=== PATIENT | female | born 1980 | race Caucasian/White ===

== ENCOUNTER 2019-02-12 14:05 | Observation (INO) | payer BC ==
[2019-02-12] MEDS ORDERED: SODIUM CHLORIDE 0.9% 1,000 ML IV STA (14:59)
[2019-02-12] MEDS ORDERED: HEPARIN SODIUM,PORCINE 5,000 UNIT/ML 1 ML VIAL IV ONE (15:00)
[2019-02-12] MEDS ORDERED: HEPARIN SODIUM,PORCINE 5,000 UNIT/ML 1 ML VIAL IV PRN (15:00)
[2019-02-12] MEDS ORDERED: HEPARIN SOD,PORK IN 0.45% NACL 25,000 UNIT in 0.45% NACL 1 250ML.BAG IV SCH (15:00)
[2019-02-12 15:27] LABS: Basophils % (A) 1 %; Eosinophils # (A) 0.2 k/uL (0-0.7); Eosinophils % (A) 2 %; HCT 41.7 % (34.0-46.0); HGB 13.5 gm/dL (11.4-16.0); Lymphocytes # (A) 2.4 k/uL (1.0-4.8); Lymphocytes % (A) 32 %; MCH 29.2 pg (25.0-35.0); MCHC 32.4 g/dL (31.0-37.0); MCV 90.2 fL (80.0-100.0); Mean Platelet Volume 6.3; Monocytes # (A) 0.2 k/uL (0-1.0); Monocytes % (A) 3 %; Neutrophils # (A) 4.6 k/uL (1.3-7.7); Neutrophils % (A) 61 %; Platelet Count 270 k/uL (150-450); RBC 4.62 m/uL (3.80-5.40); RDW 13.1 % (11.5-15.5); WBC 7.5 k/uL (3.8-10.6)
[2019-02-12 15:36] LABS: ALT 26 U/L (9-52); AST 33 U/L (14-36); African American GFR (CKD) >90 (>60 ml/min/1.73 sqM); Albumin 4.1 g/dL (3.5-5.0); Alkaline Phosphatase 85 U/L (38-126); Anion Gap 9 mmol/L; Blood Urea Nitrogen 9 mg/dL (7-17); Calcium 9.4 mg/dL (8.4-10.2); Carbon Dioxide 26 mmol/L (22-30); Chloride 105 mmol/L (98-107); Glucose 94 mg/dL (74-99); Magnesium 2.1 mg/dL (1.6-2.3); Non-African American GFR(CKD) >90 (>60 ml/min/1.73 sqM); Potassium 4.1 mmol/L (3.5-5.1); Sodium 140 mmol/L (137-145); Total Bilirubin 0.6 mg/dL (0.2-1.3); Total Protein 7.2 g/dL (6.3-8.2)
[2019-02-12 15:52] LABS: INR 0.9 (<1.2); Partial Thromboplastin Time 22.4 sec (22.0-30.0); Prothrombin Time 9.5 sec (9.0-12.0)
--- NOTE | 2019-02-12 15:58 | ED ---
General Adult HPI - General Source: patient, EMS, RN notes reviewed, old records reviewed Mode of arrival: EMS Limitations: no limitations <Tiffanie Chance - Last Filed: 02/12/19 15:47> <Omkar Ojeda - Last Filed: 02/12/19 16:05> - General Chief complaint: Recheck/Abnormal Lab/Rx Stated complaint: Chest pain Time Seen by Provider: 02/12/19 14:21 - History of Present Illness Initial comments: Patient is a 38-year-old female with history of CABG, hypertension.. She presents emergency room today for a transfer from [facility]. Patient was evaluated there for left-sided chest pain, pleurisy. Patient had a full evaluation including blood work, EKGs. Laboratory studies were reassuring and her initial troponin was negative. They did repeat patient's troponin 2 hours later and it was noted to be elevated at 0.032. She has reportedly had a history of PEs and DVTs. And has been noncompliant with her L Pauline. They did check a d-dimer on the Patient. This was elevated and a computed tomography s can of the chest was used done to rule out PE. There was no evidence of PE or pneumonia per the radiologist on patient's CAT scan. With the elevated troponin and her 2 hour draw Patient was transferred to our hospital. Patient reports her outsoles channel opener is Dr. Montague. Patient states that she continues to have some pain upon arriving here. She was not initiated on heparin at [facility]. (Tiffanie Chance) - Related Data Home Medications Medication Instructions Recorded Confirmed Apixaban [Eliquis] 5 mg PO BID 02/19/18 02/12/19 Metoprolol Tartrate 25 mg PO BID 06/10/18 02/12/19 Ranitidine HCl [Zantac] 150 mg PO HS 02/12/19 02/12/19 Rosuvastatin Calcium [Crestor] 5 mg PO DAILY 02/12/19 02/12/19 Allergies Allergy/AdvReac Type Severity Reaction Status Date / Time adhesive Allergy Rash/Hives Verified 02/12/19 14:56 albuterol Allergy Anaphylaxis Verified 02/12/19 14:56 amoxicillin Allergy Anaphylaxis Verified 02/12/19 14:56 ampicillin Allergy Anaphylaxis Verified 02/12/19 14:56 azithromycin [From Zithromax] Allergy Anaphylaxis Verified 02/12/19 14:56 erythromycin base Allergy Anaphylaxis Verified 02/12/19 14:56 latex Allergy Rash/Hives Verified 02/12/19 14:56 penicillin V Allergy Anaphylaxis Verified 02/12/19 14:56 Review of Systems ROS Other: All systems not noted in ROS Statement are negative. <Tiffanie Chance - Last Filed: 02/12/19 15:47> ROS Other: All systems not noted in ROS Statement are negative. <Omkar Ojeda - Last Filed: 02/12/19 16:05> ROS Statement: Those systems with pertinent positive or pertinent negative responses have been documented in the HPI. Past Medical History Past Medical History: Coronary Artery Disease (CAD), Chest Pain / Angina, Deep Vein Thrombosis (DVT), Hyperlipidemia, Myocardial Infarction (MS), Pulmonary Embolus (PE) Last Myocardial Infarction Date:: 04/2017 History of Any Multi-Drug Resistant Organisms: MRSA Date of last positivie culture/infection: 2014 MDRO Source:: abscess abdomen Past Surgical History: Section, Cholecystectomy, Coronary Bypass/CABG, Heart Catheterization Additional Past Surgical History / Comment(s): right wrist surgery, carpal tunnel, MRSA S/P wound. left knee surgery Past Anesthesia/Blood Transfusion Reactions: No Reported Reaction Past Psychological History: No Psychological Hx Reported Smoking Status: Current every day smoker Past Alcohol Use History: None Reported Past Drug Use History: None Reported - Past Family History Mother Family Medical History: Cancer, CVA/TIA, Diabetes Mellitus, Myocardial Infarction (MS), Renal Disease Additional Family Medical History / Comment(s): uterine cancer, artificial valves Father Additional Family Medical History / Comment(s): PAD Brother(s) Family Medical History: Coronary Artery Disease (CAD), Diabetes Mellitus Additional Family Medical History / Comment(s): 2 HEART STENTS, issue with heart valve Sister(s) Additional Family Medical History / Comment(s): psych issues Daughter(s) Family Medical History: No Reported History Son(s) Family Medical History: No Reported History <Tiffanie Chance - Last Filed: 02/12/19 15:47> General Exam Limitations: no limitations Head exam: Present: atraumatic, normocephalic, normal inspection Eye exam: Present: normal appearance, PERRL, EOMI. Absent: scleral icterus, con junctival injection, periorbital swelling ENT exam: Present: normal exam, mucous membranes moist Neck exam: Present: normal inspection. Absent: tenderness, meningismus, lymphadenopathy Respiratory exam: Present: normal lung sounds bilaterally. Absent: respiratory distress, wheezes, rales, rhonchi, stridor Cardiovascular Exam: Present: regular rate, normal rhythm, normal heart sounds. Absent: systolic murmur, diastolic murmur, rubs, gallop, clicks GI/Abdominal exam: Present: soft, normal bowel sounds. Absent: distended, tenderness, guarding, rebound, rigid Extremities exam: Present: normal inspection, full ROM, normal capillary refill, other (Patient has evidence of Abbey intertrigo within her right axilla.). Absent: tenderness, pedal edema, joint swelling, calf tenderness Back exam: Present: normal inspection Neurological exam: Present: alert, oriented X3, CN II-XII intact Psychiatric exam: Present: normal affect, normal mood Skin exam: Present: warm, dry, intact, normal color. Absent: rash <Tiffanie Chance - Last Filed: 02/12/19 15:47> - General Exam Comments Initial Comments: Alert and oriented 38-year-old female. Patient is currently obese. Patient appears in no significant distress. (Tiffanie Chance) Course Vital Signs 02/12/19 02/12/19 14:08 16:00 Temperature 97.6 F Pulse Rate 78 91 Respiratory 20 18 Rate Blood Pressure 114/80 111/72 O2 Sat by Pulse 100 98 Oximetry Medical Decision Making - Lab Data Result diagrams: 02/12/19 15:16 02/12/19 15:16 - Radiology Data Radiology results: report reviewed <Tiffanie Chance - Last Filed: 02/12/19 15:47> - Lab Data Result diagrams: 02/12/19 15:16 02/12/19 15:16 <Omkar Ojeda - Last Filed: 02/12/19 16:05> - Medical Decision Making Patient 38-year-old female, sent here for transfer for [facility] for concern for elevated second troponin. Patient went to the ER for some left- sided pleuritic description of chest pain. She had a CT which was negative for PE. She has been noncompliant with her Eliquis. When she arrived here Patient was initiated on heparin, she was given aspirin and morphine earlier today. Patient's EKG shows no significant acute changes. Her outsoles channel opener is Dr. Montague. I discussed the Patient will have repeat troponins and admitted for cardiac observation. (Tiffanie Chance) The patient is seen and examined. All diagnostics are reviewed. The case is discussed with the PA and I agree with findings as documented. Case also was discussed with Dr. Wise and he is agreeable with admission. (Omkar Ojeda) - Lab Data Lab Results 02/12/19 02/12/19 02/12/19 Range/Units 15:16 15:16 15:16 WBC 7.5 (3.8-10.6) k/uL RBC 4.62 (3.80-5.40) m/uL Hgb 13.5 (11.4-16.0) gm/dL Hct 41.7 (34.0-46.0) % MCV 90.2 (80.0-100.0) fL MCH 29.2 (25.0-35.0) pg MCHC 32.4 (31.0-37.0) g/dL RDW 13.1 (11.5-15.5) % Plt Count 270 (150-450) k/uL Neutrophils % 61 % Lymphocytes % 32 % Monocytes % 3 % Eosinophils % 2 % Basophils % 1 % Neutrophils # 4.6 (1.3-7.7) k/uL Lymphocytes # 2.4 (1.0-4.8) k/uL Monocytes # 0.2 (0-1.0) k/uL Eosinophils # 0.2 (0-0.7) k/uL Basophils # 0.0 (0-0.2) k/uL PT 9.5 (9.0-12.0) sec INR 0.9 (<1.2) APTT 22.4 (22.0-30.0) sec Sodium 140 (137-145) mmol/L Potassium 4.1 (3.5-5.1) mmol/L Chloride 105 (98-107) mmol/L Carbon Dioxide 26 (22-30) mmol/L Anion Gap 9 mmol/L BUN 9 (7-17) mg/dL Creatinine 0.62 (0.52-1.04) mg/dL Est GFR (CKD-EPI)AfAm >90 (>60 ml/min/1.73 sqM) Est GFR (CKD-EPI)NonAf >90 (>60 ml/min/1.73 sqM) Glucose 94 (74-99) mg/dL Calcium 9.4 (8.4-10.2) mg/dL Magnesium 2.1 (1.6-2.3) mg/dL Total Bilirubin 0.6 (0.2-1.3) mg/dL AST 33 (14-36) U/L ALT 26 (9-52) U/L Alkaline Phosphatase 85 (38-126) U/L Troponin I (0.000-0.034) ng/mL Total Protein 7.2 (6.3-8.2) g/dL Albumin 4.1 (3.5-5.0) g/dL 02/12/19 Range/Units 15:16 WBC (3.8-10.6) k/uL RBC (3.80-5.40) m/uL Hgb (11.4-16.0) gm/dL Hct (34.0-46.0) % MCV (80.0-100.0) fL MCH (25.0-35.0) pg MCHC (31.0-37.0) g/dL RDW (11.5-15.5) % Plt Count (150-450) k/uL Neutrophils % % Lymphocytes % % Monocytes % % Eosinophils % % Basophils % % Neutrophils # (1.3-7.7) k/uL Lymphocytes # (1.0-4.8) k/uL Monocytes # (0-1.0) k/uL Eosinophils # (0-0.7) k/uL Basophils # (0-0.2) k/uL PT (9.0-12.0) sec INR (<1.2) APTT (22.0-30.0) sec Sodium (137-145) mmol/L Potassium (3.5-5.1) mmol/L Chloride (98-107) mmol/L Carbon Dioxide (22-30) mmol/L Anion Gap mmol/L BUN (7-17) mg/dL Creatinine (0.52-1.04) mg/dL Est GFR (CKD-EPI)AfAm (>60 ml/min/1.73 sqM) Est GFR (CKD-EPI)NonAf (>60 ml/min/1.73 sqM) Glucose (74-99) mg/dL Calcium (8.4-10.2) mg/dL Magnesium (1.6-2.3) mg/dL Total Bilirubin (0.2-1.3) mg/dL AST (14-36) U/L ALT (9-52) U/L Alkaline Phosphatase (38-126) U/L Troponin I 0.013 (0.000-0.034) ng/mL Total Protein (6.3-8.2) g/dL Albumin (3.5-5.0) g/dL 02/12/19 15:56 EKG performed here 15 days 47 shows normal sinus rhythm low voltage QRS. Cannot rule out anterior infarct age undetermined. Abnormal EKG. Ventricular rate of 84 bpm.. Intervals 152 ms. QRS duration is 82 ms. QT QTc is 370/446 ms. (Tiffanie Chance) - Radiology Data Chest x-ray shows prior median sternotomy. Heart size is upper limits of normal. Limited exam enlarged Patient by habitus. Correlate for mild pulmonary vascular congestion. CT is negative for pulmonary embolism at this time. (Tiffanie Chance) Disposition Is patient prescribed a controlled substance at d/c from ED?: No Time of Disposition: 16:01 <Tiffanie Chance - Last Filed: 02/12/19 15:47> <Omkar Ojeda - Last Filed: 02/12/19 16:05> Clinical Impression: Elevated troponin, Chest pain Disposition: ADMITTED IP TO THIS HOSP Condition: Stable Additional Instructions: Please use medication as discussed. Please follow up with family doctor if symptoms have not improved over the next two days. Please return to the emergency room if your symptoms increase or worsen or for any other concerns. Referrals: Marya Foreman MD [Primary Care Provider] - 1-2 days
[2019-02-12 16:02] VITALS: RESP 18
[2019-02-12] MEDS ORDERED: NITROGLYCERIN SL TABS 0.4 MG TAB SUBLINGUAL PRN (16:02)
--- NOTE | 2019-02-12 16:02 | XR ---
EXAMINATION TYPE: XR chest 2V DATE OF EXAM: 02/12/2019 COMPARISON: Prior chest x-ray 12/25/2018, CTA chest 02/12/2019 HISTORY: Chest pain TECHNIQUE: Frontal and lateral views of the chest are obtained. FINDINGS: Patient is post median sternotomy. Technique is somewhat apical lordotic. There is no focal air space opacity, pleural effusion, or pneumothorax seen. The cardiac silhouette size is stable. There are overlying cardiac leads. Prominent lung volumes are present, there is increased AP diamete r chest. Patient is post cholecystectomy. The osseous structures are intact. IMPRESSION: No acute cardiopulmonary process.
[2019-02-12 16:39] VITALS: BP 125/71; PULSE 89; TEMP 98.1
[2019-02-13] MEDS ORDERED: ASPIRIN 325 MG TAB PO SCH (09:00)
--- NOTE | 2019-02-17 20:07 | HP ---
HISTORY AND PHYSICAL COMBINATION HISTORY AND PHYSICAL AND DISCHARGE SUMMARY: CHIEF COMPLAINT: Chest pain. HISTORY OF PRESENT ILLNESS: This 38-year-old woman was admitted with chest pain; however, the patient left the hospital AGAINST MEDICAL ADVICE from the ER itself. Please refer to the ER notes and staff notes for further details. FINAL DIAGNOSIS: Chest pain; rule out myocardial infarction. The prognosis remained guarded throughout the hospital stay. MMODL / IJN: [id number] /
== END 2019-02-12 16:28 | disposition left against medical advice (07) ==
LOC: EC 14:05 → MERGE 16:05 → 1SOBS 16:05
PROVIDERS: ADMIT Hospitalist; ATTEND Hospitalist
DX: R07.81 Pleurodynia (principal); R79.89 Other specified abnormal findings of blood chemistry; R94.31 Abnormal electrocardiogram [ECG] [EKG]; I10 Essential (primary) hypertension; I25.10 Atherosclerotic heart disease of native coronary artery without angina pectoris; E78.5 Hyperlipidemia, unspecified; Z95.1 Presence of aortocoronary bypass graft; I25.2 Old myocardial infarction; E66.9 Obesity, unspecified; Z68.42 Body mass index [BMI] 45.0-49.9, adult; F17.200 Nicotine dependence, unspecified, uncomplicated; Z53.21 Procedure and treatment not carried out due to patient leaving prior to being seen by health care provider; Z86.711 Personal history of pulmonary embolism; Z86.718 Personal history of other venous thrombosis and embolism; Z91.19 Patient's noncompliance with other medical treatment and regimen; Z86.14 Personal history of Methicillin resistant Staphylococcus aureus infection; Z79.01 Long term (current) use of anticoagulants; Z79.899 Other long term (current) drug therapy; Z91.040 Latex allergy status; Z91.048 Other nonmedicinal substance allergy status; Z88.8 Allergy status to other drugs, medicaments and biological substances; Z88.0 Allergy status to penicillin; Z88.1 Allergy status to other antibiotic agents; Z90.49 Acquired absence of other specified parts of digestive tract; Z98.890 Other specified postprocedural states; Z83.3 Family history of diabetes mellitus; Z82.49 Family history of ischemic heart disease and other diseases of the circulatory system; Z80.49 Family history of malignant neoplasm of other genital organs
CPT/HCPCS: 96376; 96365; 99285; 36415; 93005; 80053; 83735; 84484; 85025; 85610; 85730; 71046; G0378; J1644 ×2

== ENCOUNTER 2019-02-13 20:12 | Observation (INO) | payer BC ==
[2019-02-13] MEDS ORDERED: ASPIRIN 81 MG PO STA (21:17)
[2019-02-13 21:46] LABS: Basophils # (A) 0.1 k/uL (0-0.2); Basophils % (A) 1 %; Eosinophils # (A) 0.1 k/uL (0-0.7); Eosinophils % (A) 2 %; HCT 40.6 % (34.0-46.0); HGB 13.7 gm/dL (11.4-16.0); Lymphocytes # (A) 2.8 k/uL (1.0-4.8); Lymphocytes % (A) 31 %; MCHC 33.6 g/dL (31.0-37.0); MCV 89.2 fL (80.0-100.0); Mean Platelet Volume 6.1; Monocytes # (A) 0.4 k/uL (0-1.0); Monocytes % (A) 4 %; Neutrophils # (A) 5.5 k/uL (1.3-7.7); Neutrophils % (A) 61 %; Platelet Count 322 k/uL (150-450); RBC 4.56 m/uL (3.80-5.40)
[2019-02-13 21:54] LABS: Calcium 9.5 mg/dL (8.4-10.2); Magnesium 2.1 mg/dL (1.6-2.3); Potassium 4.1 mmol/L (3.5-5.1); Total Bilirubin 0.2 mg/dL (0.2-1.3)
--- NOTE | 2019-02-13 21:56 | XR ---
EXAMINATION TYPE: XR chest 2V DATE OF EXAM: 02/13/2019 COMPARISON: 02/12/2019 HISTORY: Chest pain TECHNIQUE: Frontal and lateral views of the chest are obtained. FINDINGS: There is no heart failure nor confluent pneumonic infiltrate. Costophrenic angles are lilia r. There are sternal wires. IMPRESSION: No definite active cardiopulmonary disease. No change.
[2019-02-13 21:58] LABS: INR 0.9 (<1.2); Partial Thromboplastin Time 24.1 sec (22.0-30.0); Prothrombin Time 9.4 sec (9.0-12.0)
[2019-02-13 22:24] LABS: D-Dimer 1.08 mg/L FEU (<0.60)
[2019-02-13] MEDS ORDERED: SODIUM CHLORIDE 0.9% 1,000 ML IV STA (22:29)
[2019-02-13] MEDS ORDERED: HEPARIN SODIUM,PORCINE 10,000 UNIT/ML 1 ML VIAL IV ONE (22:52)
[2019-02-13] MEDS ORDERED: HEPARIN SODIUM,PORCINE 5,000 UNIT/ML 1 ML VIAL IV PRN (22:52)
[2019-02-13] MEDS ORDERED: HEPARIN SOD,PORK IN 0.45% NACL 25,000 UNIT in 0.45% NACL 1 250ML.BAG IV SCH (23:00)
--- NOTE | 2019-02-13 23:14 | ED ---
General Adult HPI - General Source: patient, RN notes reviewed, old records reviewed Mode of arrival: ambulatory Limitations: no limitations <Luis Love - Last Filed: 02/14/19 00:20> <Chano Durand - Last Filed: 02/18/19 09:54> - General Chief complaint: Chest Pain Stated complaint: Headache,Chest Pain with deep breath Time Seen by Provider: 02/13/19 20:52 - History of Present Illness Initial comments: 38-year-old female patient presents to the chief complaint of chest pain. Patient reports that she has pain in her left region of her breast. Describes it nature. Patient reports that she has been having some coughing as well. Patient has a history of CABG, prior pulmonary embolism and DVTs. Patient is post anticoagulated on eliquis hours noncompliant with her medication. She was seen in this facility yesterday and recommended admission, signed out AGAINST MEDICAL ADVICE. Patient was evaluated in [place] yesterday where she had a reported CT pulmonary angiography which was negative. States that her symptoms have continued. She does complain of some shortness of breath. Denies any rece nt prolonged travel or exogenous hormone use. Systemic: Pt denies fatigue, fever/chills, rash. Pt denies weakness, night sweats, weight loss. Neuro: Pt denies headache, visual disturbances, syncope or pre-syncope. HEENT: Pt denies ocular discharge or irritation, otalgia, rhinorrhea, pharyngitis or notable lymphadenopathy. Cardiopulmonary: Pt denies heart palpitations, dyspnea on exertion. Abdominal/GI: Pt denies abdominal pain, n/v/d. : Pt denies dysuria, burning w/ urination, frequency/urgency. Denies new onset urinary or bowel incontinence. MSK: Pt denies myalgia, loss of strength or function in extremities. Neuro: Pt denies new onset weakness, paresthesias. (Luis Love) - Related Data Home Medications Medication Instructions Recorded Confirmed Apixaban [Eliquis] 5 mg PO BID 02/19/18 02/14/19 Metoprolol Tartrate 25 mg PO BID 06/10/18 02/14/19 Ranitidine HCl [Zantac] 150 mg PO HS 02/12/19 02/14/19 Rosuvastatin Calcium [Crestor] 5 mg PO DAILY 02/12/19 02/14/19 Allergies Allergy/AdvReac Type Severity Reaction Status Date / Time adhesive Allergy Rash/Hives Verified 02/14/19 07:53 albuterol Allergy Anaphylaxis Verified 02/14/19 07:53 amoxicillin Allergy Anaphylaxis Verified 02/14/19 07:53 ampicillin Allergy Anaphylaxis Verified 02/14/19 07:53 azithromycin [From Zithromax] Allergy Anaphylaxis Verified 02/14/19 07:53 erythromycin base Allergy Anaphylaxis Verified 02/14/19 07:53 latex Allergy Rash/Hives Verified 02/14/19 07:53 penicillin V Allergy Anaphylaxis Verified 02/14/19 07:53 Review of Systems ROS Other: All systems not noted in ROS Statement are negative. <Luis Love - Last Filed: 02/14/19 00:20> ROS Other: All systems not noted in ROS Statement are negative. <Chano Durand - Last Filed: 02/18/19 09:54> ROS Statement: Those systems with pertinent positive or pertinent negative responses have been documented in the HPI. Past Medical History Past Medical History: Coronary Artery Disease (CAD), Chest Pain / Angina, Deep Vein Thrombosis (DVT), Hyperlipidemia, Myocardial Infarction (DC), Pulmonary Embolus (PE) Last Myocardial Infarction Date:: 04/2017 History of Any Multi-Drug Resistant Organisms: MRSA Date of last positivie culture/infection: 2014 MDRO Source:: abscess abdomen Past Surgical History: Section, Cholecystectomy, Coronary Bypass/CABG, Heart Catheterization Additional Past Surgical History / Comment(s): right wrist surgery, carpal tunnel, MRSA S/P wound. left knee surgery Past Anesthesia/Blood Transfusion Reactions: No Reported Reaction Past Psychological History: No Psychological Hx Reported Smoking Status: Current every day smoker Past Alcohol Use History: None Reported Past Drug Use History: None Reported - Past Family History Mother Family Medical History: Cancer, CVA/TIA, Diabetes Mellitus, Myocardial Infarction (DC), Renal Disease Additional Family Medical History / Comment(s): uterine cancer, artificial valves Father Additional Family Medical History / Comment(s): PAD Brother(s) Family Medical History: Coronary Artery Disease (CAD), Diabetes Mellitus Additional Family Medical History / Comment(s): 2 HEART STENTS, issue with heart valve Sister(s) Additional Family Medical History / Comment(s): psych issues Daughter(s) Family Medical History: No Reported History Son(s) Family Medical History: No Reported History <KateLuis Daisy - Last Filed: 02/14/19 00:20> General Exam Limitations: no limitations <KateLuis Villa - Last Filed: 02/14/19 00:20> - General Exam Comments Initial Comments: Constitutional: NAD, AOX3, Pt has pleasant affect. HEENT: NC/AT, trachea midline, neck supple, no lymphadenopathy. Posterior pharynx non erythematous, without exudates. External ears appear normal, without discharge. Mucous membranes moist. Eyes PERRLA, EOM intact. There is no scleral icterus. No pallor noted. Cardiopulmonary: RRR, no murmurs, rubs or gallops, no JVD noted. Chest. Pain reproducible upon palpation. Lungs CTAB in anterior and posterior marquez. No peripheral edema. Abdominal exam: Abdomen soft and non-distended. Abdomen non-tender to palpation in all 4 quadrants. Bowel sounds active in LLQ. No hepatosplenomegaly. No ecchymosis Neuro: CN II-XII grossly intact. No nuchal rigidity. No raccon eyes, no dangelo sign, no hemotympanum. No cervical spinal tenderness. MSK: No posterior calf tenderness bilaterally, homans sign negative bilaterally. Posterior tibialis and radial pulse +2 bilaterally. Sensation intact in upper and lower extremities. Full active ROM in upper and lower extremities, 5/5 stregnth. (Luis Love) Course Vital Signs 02/13/19 02/13/19 02/14/19 20:35 21:58 00:53 Temperature 98.7 F 98.1 F Pulse Rate 96 Pulse Rate [ 84 Pulse Oximetery ] Respiratory 16 18 18 Rate Blood Pressure 110/71 Blood Pressure 123/77 [Right Arm] O2 Sat by Pulse 98 97 Oximetry Medical Decision Making - Lab Data Result diagrams: 02/13/19 23:39 02/13/19 21:35 - EKG Data -: EKG Interpreted by Me (and Dr. Lau ) <Luis Love - Last Filed: 02/14/19 00:20> - Lab Data Result diagrams: 02/14/19 06:18 02/13/19 21:35 <Chano Durand - Last Filed: 02/18/19 09:54> - Medical Decision Making 38-year-old female patient presents to the chief complaint of chest pain. Patient reports that she has pain in her left region of her breast. Describes it nature. Patient reports that she has been having some coughing as well. Patient has a history of CABG, prior pulmonary embolism and DVTs. Patient is post anticoagulated on eliquis hours noncompliant with her medication. She was seen in this facility yesterday and recommended admission, signed out AGAINST MEDICAL ADVICE. Patient was evaluated in [place] yesterday where she had a reported CT pulmonary angiography which was negative. States that her symptoms have continued. She does complain of some shortness of breath. Denies any recent prolonged travel or exogenous hormone use. Patient will signs stable, afebrile. Physical exam displayed reproducible chest pain. Patient studies revealed negative troponin, elevated d-dimer. Patient denies any chance of being . Patient declines repeat CT. further history taking reveals the patient does have an extensive history of PE including 2 unprovoked PEs and 6 DVTs. Patient will be heparinized and admitted for cardiac evaluation. Case discussed with Dr. Lau. (Luis Love) I saw this patient in conjunction with the physician oral surgery assistant. I performed independent history and physical exam. Agree with case management. (Chano Durand) - Lab Data Lab Results 02/13/19 02/13/19 02/13/19 Range/Units 21:35 21:35 21:35 WBC 9.0 (3.8-10.6) k/uL RBC 4.56 (3.80-5.40) m/uL Hgb 13.7 (11.4-16.0) gm/dL Hct 40.6 (34.0-46.0) % MCV 89.2 (80.0-100.0) fL MCH 30.0 (25.0-35.0) pg MCHC 33.6 (31.0-37.0) g/dL RDW 13.0 (11.5-15.5) % Plt Count 322 (150-450) k/uL Neutrophils % 61 % Lymphocytes % 31 % Monocytes % 4 % Eosinophils % 2 % Basophils % 1 % Neutrophils # 5.5 (1.3-7.7) k/uL Lymphocytes # 2.8 (1.0-4.8) k/uL Monocytes # 0.4 (0-1.0) k/uL Eosinophils # 0.1 (0-0.7) k/uL Basophils # 0.1 (0-0.2) k/uL PT 9.4 (9.0-12.0) sec INR 0.9 (<1.2) APTT 24.1 (22.0-30.0) sec D-Dimer 1.08 H (<0.60) mg/L FEU Sodium 139 (137-145) mmol/L Potassium 4.1 (3.5-5.1) mmol/L Chloride 102 (98-107) mmol/L Carbon Dioxide 30 (22-30) mmol/L Anion Gap 7 mmol/L BUN 16 (7-17) mg/dL Creatinine 0.98 (0.52-1.04) mg/dL Est GFR (CKD-EPI)AfAm 85 (>60 ml/min/1.73 sqM) Est GFR (CKD-EPI)NonAf 73 (>60 ml/min/1.73 sqM) Glucose 99 (74-99) mg/dL Calcium 9.5 (8.4-10.2) mg/dL Magnesium 2.1 (1.6-2.3) mg/dL Total Bilirubin 0.2 (0.2-1.3) mg/dL AST 17 (14-36) U/L ALT 21 (9-52) U/L Alkaline Phosphatase 81 (38-126) U/L Troponin I (0.000-0.034) ng/mL Total Protein 7.0 (6.3-8.2) g/dL Albumin 4.0 (3.5-5.0) g/dL 02/13/19 02/13/19 02/13/19 Range/Units 21:35 23:39 23:39 WBC 9.1 (3.8-10.6) k/uL RBC 4.66 (3.80-5.40) m/uL Hgb 13.8 (11.4-16.0) gm/dL Hct 41.9 (34.0-46.0) % MCV 89.7 (80.0-100.0) fL MCH 29.7 (25.0-35.0) pg MCHC 33.1 (31.0-37.0) g/dL RDW 13.0 (11.5-15.5) % Plt Count 326 (150-450) k/uL Neutrophils % 58 % Lymphocytes % 35 % Monocytes % 3 % Eosinophils % 2 % Basophils % 0 % Neutrophils # 5.3 (1.3-7.7) k/uL Lymphocytes # 3.2 (1.0-4.8) k/uL Monocytes # 0.3 (0-1.0) k/uL Eosinophils # 0.2 (0-0.7) k/uL Basophils # 0.0 (0-0.2) k/uL PT 9.4 (9.0-12.0) sec INR 0.9 (<1.2) APTT 23.6 (22.0-30.0) sec D-Dimer (<0.60) mg/L FEU Sodium (137-145) mmol/L Potassium (3.5-5.1) mmol/L Chloride (98-107) mmol/L Carbon Dioxide (22-30) mmol/L Anion Gap mmol/L BUN (7-17) mg/dL Creatinine (0.52-1.04) mg/dL Est GFR (CKD-EPI)AfAm (>60 ml/min/1.73 sqM) Est GFR (CKD-EPI)NonAf (>60 ml/min/1.73 sqM) Glucose (74-99) mg/dL Calcium (8.4-10.2) mg/dL Magnesium (1.6-2.3) mg/dL Total Bilirubin (0.2-1.3) mg/dL AST (14-36) U/L ALT (9-52) U/L Alkaline Phosphatase (38-126) U/L Troponin I <0.012 (0.000-0.034) ng/mL Total Protein (6.3-8.2) g/dL Albumin (3.5-5.0) g/dL - EKG Data EKG Comments: Ventricular rate 87, painful 148, QRS 84, QT/QTC 366 is 440. Normal sinus rhythm, low voltage QRS Phelan EKG, no significant change from prior. No concern for acute ischemia. (Luis Love) Disposition Is patient prescribed a controlled substance at d/c from ED?: No <Luis Love - Last Filed: 02/14/19 00:20> <Chano Durand - Last Filed: 02/18/19 09:54> Clinical Impression: Chest pain Disposition: ADMITTED IP TO THIS HOSP Condition: Serious
--- NOTE | 2019-02-13 23:47 | US ---
EXAMINATION TYPE: US venous doppler duplex LE DATE OF EXAM: 02/13/2019 11:34 PM COMPARISON: US 2019 CLINICAL HISTORY: elevated dimer . Elevated D Dimer. Hx PE, DVT. SIDE PERFORMED: Bilateral TECHNIQUE: The lower extremity deep venous system is examined utilizing real time linear array sonog jose rafael with graded compression, doppler sonography and color-flow sonography. VESSELS IMAGED: Common Femoral Vein Deep Femoral Vein Greater Saphenous Vein * Femoral Vein Popliteal Vein Small Saphenous Vein * Proximal Calf Veins (* superficial vessels) Right Leg: EIV not visualized. No evidence of DVT in veins imaged from prox calf veins to CFV/GSV. P atient cannot tolerate compression of distal femoral vein. Left Leg: EIV not visualized. Patient cannot tolerate compression of distal femoral vein. There appe ars to be non-occlusive chronic thrombus in the proximal-mid popliteal vein. Unable to assess florina sibility of proximal popliteal vein due to patient's pain tolerance. Mid and distal popliteal vein ap pear compressible. IMPRESSION: Limited exam. There is evidence of acute and chronic deep venous thrombosis in the left popliteal vei n. No evidence of deep venous thrombosis in the right leg.
[2019-02-13] MEDS ORDERED: MORPHINE SULFATE 4 MG/ML SYRINGE IV STA (23:59)
[2019-02-14 00:01] LABS: Basophils % (A) 0 %; Eosinophils # (A) 0.2 k/uL (0-0.7); Eosinophils % (A) 2 %; HCT 41.9 % (34.0-46.0); HGB 13.8 gm/dL (11.4-16.0); Lymphocytes # (A) 3.2 k/uL (1.0-4.8); Lymphocytes % (A) 35 %; MCH 29.7 pg (25.0-35.0); MCHC 33.1 g/dL (31.0-37.0); MCV 89.7 fL (80.0-100.0); Mean Platelet Volume 5.9; Monocytes # (A) 0.3 k/uL (0-1.0); Monocytes % (A) 3 %; Neutrophils # (A) 5.3 k/uL (1.3-7.7); Neutrophils % (A) 58 %; Platelet Count 326 k/uL (150-450); RBC 4.66 m/uL (3.80-5.40); WBC 9.1 k/uL (3.8-10.6)
[2019-02-14 00:03] LABS: INR 0.9 (<1.2); Partial Thromboplastin Time 23.6 sec (22.0-30.0); Prothrombin Time 9.4 sec (9.0-12.0)
[2019-02-14] MEDS ORDERED: NALOXONE 0.4 MG/ML 1 ML VIAL IV PRN (00:21)
--- NOTE | 2019-02-14 00:26 | ED ---
Medical Decision Making - Medical Decision Making Patient began complaining of headache behind her left eye. Reports this is consistent with migraine she has had in the past. Neurologic exam within normal limits. No focal deficit. Patient administered analgesia. - Lab Data Result diagrams: 02/13/19 23:39 02/13/19 21:35 Lab Results 02/13/19 02/13/19 02/13/19 Range/Units 21:35 21:35 21:35 WBC 9.0 (3.8-10.6) k/uL RBC 4.56 (3.80-5.40) m/uL Hgb 13.7 (11.4-16.0) gm/dL Hct 40.6 (34.0-46.0) % MCV 89.2 (80.0-100.0) fL MCH 30.0 (25.0-35.0) pg MCHC 33.6 (31.0-37.0) g/dL RDW 13.0 (11.5-15.5) % Plt Count 322 (150-450) k/uL Neutrophils % 61 % Lymphocytes % 31 % Monocytes % 4 % Eosinophils % 2 % Basophils % 1 % Neutrophils # 5.5 (1.3-7.7) k/uL Lymphocytes # 2.8 (1.0-4.8) k/uL Monocytes # 0.4 (0-1.0) k/uL Eosinophils # 0.1 (0-0.7) k/uL Basophils # 0.1 (0-0.2) k/uL PT 9.4 (9.0-12.0) sec INR 0.9 (<1.2) APTT 24.1 (22.0-30.0) sec D-Dimer 1.08 H (<0.60) mg/L FEU Sodium 139 (137-145) mmol/L Potassium 4.1 (3.5-5.1) mmol/L Chloride 102 (98-107) mmol/L Carbon Dioxide 30 (22-30) mmol/L Anion Gap 7 mmol/L BUN 16 (7-17) mg/dL Creatinine 0.98 (0.52-1.04) mg/dL Est GFR (CKD-EPI)AfAm 85 (>60 ml/min/1.73 sqM) Est GFR (CKD-EPI)NonAf 73 (>60 ml/min/1.73 sqM) Glucose 99 (74-99) mg/dL Calcium 9.5 (8.4-10.2) mg/dL Magnesium 2.1 (1.6-2.3) mg/dL Total Bilirubin 0.2 (0.2-1.3) mg/dL AST 17 (14-36) U/L ALT 21 (9-52) U/L Alkaline Phosphatase 81 (38-126) U/L Troponin I (0.000-0.034) ng/mL Total Protein 7.0 (6.3-8.2) g/dL Albumin 4.0 (3.5-5.0) g/dL 02/13/19 02/13/19 02/13/19 Range/Units 21:35 23:39 23:39 WBC 9.1 (3.8-10.6) k/uL RBC 4.66 (3.80-5.40) m/uL Hgb 13.8 (11.4-16.0) gm/dL Hct 41.9 (34.0-46.0) % MCV 89.7 (80.0-100.0) fL MCH 29.7 (25.0-35.0) pg MCHC 33.1 (31.0-37.0) g/dL RDW 13.0 (11.5-15.5) % Plt Count 326 (150-450) k/uL Neutrophils % 58 % Lymphocytes % 35 % Monocytes % 3 % Eosinophils % 2 % Basophils % 0 % Neutrophils # 5.3 (1.3-7.7) k/uL Lymphocytes # 3.2 (1.0-4.8) k/uL Monocytes # 0.3 (0-1.0) k/uL Eosinophils # 0.2 (0-0.7) k/uL Basophils # 0.0 (0-0.2) k/uL PT 9.4 (9.0-12.0) sec INR 0.9 (<1.2) APTT 23.6 (22.0-30.0) sec D-Dimer (<0.60) mg/L FEU Sodium (137-145) mmol/L Potassium (3.5-5.1) mmol/L Chloride (98-107) mmol/L Carbon Dioxide (22-30) mmol/L Anion Gap mmol/L BUN (7-17) mg/dL Creatinine (0.52-1.04) mg/dL Est GFR (CKD-EPI)AfAm (>60 ml/min/1.73 sqM) Est GFR (CKD-EPI)NonAf (>60 ml/min/1.73 sqM) Glucose (74-99) mg/dL Calcium (8.4-10.2) mg/dL Magnesium (1.6-2.3) mg/dL Total Bilirubin (0.2-1.3) mg/dL AST (14-36) U/L ALT (9-52) U/L Alkaline Phosphatase (38-126) U/L Troponin I <0.012 (0.000-0.034) ng/mL Total Protein (6.3-8.2) g/dL Albumin (3.5-5.0) g/dL Disposition Clinical Impression: Chest pain Disposition: ADMITTED IP TO THIS [facility] Condition: Serious Is patient prescribed a controlled substance at d/c from ED?: No Referrals: Marya Foreman MD [Primary Care Provider] - 1-2 days
[2019-02-14] MEDS ORDERED: SODIUM CHLORIDE 0.9% 1,000 ML IV SCH (00:30)
[2019-02-14] MEDS ORDERED: diphenhydrAMINE 25 MG CAP PO STA (02:06)
[2019-02-14] MEDS ORDERED: MORPHINE SULFATE 2 MG/ML SYRINGE IVP PRN (02:07)
[2019-02-14 06:42] LABS: Basophils % (A) 0 %; Eosinophils # (A) 0.2 k/uL (0-0.7); Eosinophils % (A) 2 %; HCT 38.9 % (34.0-46.0); HGB 12.9 gm/dL (11.4-16.0); Lymphocytes # (A) 3.2 k/uL (1.0-4.8); Lymphocytes % (A) 42 %; MCH 29.9 pg (25.0-35.0); MCHC 33.1 g/dL (31.0-37.0); MCV 90.3 fL (80.0-100.0); Monocytes # (A) 0.3 k/uL (0-1.0); Monocytes % (A) 4 %; Neutrophils # (A) 3.7 k/uL (1.3-7.7); Neutrophils % (A) 49 %; Platelet Count 295 k/uL (150-450); WBC 7.6 k/uL (3.8-10.6)
[2019-02-14 08:55] VITALS: RESP 18
[2019-02-14] MEDS ORDERED: ACETAMINOPHEN TAB 325 MG TAB PO PRN (09:39)
[2019-02-14] MEDS ORDERED: APIXABAN 5 MG TAB PO SCH (10:45)
[2019-02-14] MEDS ORDERED: ATORVASTATIN 10 MG TAB PO SCH (10:45)
[2019-02-14] MEDS ORDERED: METOPROLOL TARTRATE 25 MG TAB PO SCH (10:45)
--- NOTE | 2019-02-14 11:04 | P.CRDCN ---
History of Present Illness History of present illness: This is a pleasant 38-year-old female past medical history significant for coronary artery disease status post single-vessel bypass, DVT and PE maintained on long-term anticoagulation, dyslipidemia and hypertension. She is also a daily smoker. She underwent bypass surgery in May 2017. Initially she underwent heart catheterization at [facility] revealing a lesion in the mid LAD with evidence of intrinsic dissection, subsequent thereafter she went back to the hospital significant rise in troponin and had a total occlusion of the LAD requiring bypass with KELLY to LAD. Postprocedure she developed DVT and PE with right ventricular enlargement. She currently follows in the office regularly with Dr. Montague. We have been asked to see her in consultation secondary to chest pain. She states for the last 3-4 days she has been experiencing a sharp pain under the left breast that is worse with deep inspiration or cough. She went to [facility] and had a work-up done that was unremarkable per the patient. However they did want to admit her but she left AMA. Yesterday she continued having this pain and cough but then developed a sharp headache behind the left eye prompting her to come to ER. She is seen and examined laying flat in no acute distress. She continues to have pain when she takes a deep breath or coughs. She denies radiation tot he arm, back, neck or jaw. She denies palpitations, nausea, vomiting, diaphoresis or dizziness. EKG reveals sinus mechanism with T-wave inversions anteriorly, chronic. No changes. Bilateral lower extremity venous duplex reveals no DVT in the right lower extremity with evidence of chronic and acute left lower extremity DVT. Laboratory data reviewed, CBC unremarkable, d-dimer 1.08, sodium 139, potassium 4.1, creatinine 0.98, magnesium 2.1, cardiac enzymes negative 2. Current prescribed daily medications include Eliquis 5 mg twice a day, metoprolol 25 mg twice a day rosuvastatin 5 mg daily. At the time of my exam: CONSTITUTIONAL: Denies fever. Denies chills. EYES: Denies blurred vision. Denies vision changes. Denies eye pain. EARS, NOSE, MOUTH & THROAT: Denies headache. Denies sore throat. Denies ear pain. CARDIOVASCULAR: Complains of pleuritic chest pain. Denies shortness of breath. Denies orthopnea. Denies PND. Denies palpitations. RESPIRATORY: Complains of cough. GASTROINTESTINAL: Denies abdominal pain. Denies diarrhea. Denies constipation. Denies nausea. Denies vomiting. MUSCULOSKELETAL: Complains of chronic left lower extremity discomfort. INTEGUMENTARY: Denies pruitis. Denies rash. NEUROLOGIC: Denies numbness. Denies tingling. Denies weakness. PSYCHIATRIC: Denies anxiety. Denies depression. ENDOCRINE: Denies fatigue. Denies weight change. Denies polydipsia. Denies polyurina. GENITOURINARY: Denies burning, hematuria or urgency with micturation. HEMATOLOGIC: Denies history of anemia. Denies bleeding. GENERAL: This is a 38-year-old female in no apparent distress at the time of my examination. HEENT: Head is atraumatic, normocephalic. Pupils are equal, round. Sclerae anicteric. Conjunctivae are clear. Mucous membranes of the mouth are moist. Neck is supple. There is no jugular venous distention. No carotid bruit is heard. LUNGS: Clear to auscultation no wheezes, rales or rhonchi. No chest wall tenderness is noted on palpation or with deep breathing. HEART: Regular rate and rhythm without murmurs, rubs or gallops. S1 and S2 heard. ABDOMEN: Soft, nontender. Bowel sounds are heard. No organomegaly noted. EXTREMITIES: No evidence of peripheral edema and no calf tenderness noted. VASCULAR: Radial and dorsalis pedis pulses palpated, no evidence of clubbing. NEUROLOGIC: Patient is awake, alert and oriented x3. ASSESSMENT Chronic left lower extremity DVT, questionable acute. Will follow up with the radiologist Pleuritic chest pain, worse with deep inspiration and cough. 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 Moore who reviewed the films, he states the DVT looks chronic and will amend the previous report. Obtain records from [facility] of recent CTA, report reviewed is negative for PE on 02/12/2019 at 1100. We will repeat an echo to assess cardiac structure and function. Compliance with eliquis imperative and strongly recommended. Thank you kindly for this consultation. Nurse Practitioner note has been reviewed, I agree with a documented findings and plan of care. Patient was seen and examined. Past Medical History Past Medical History: Coronary Artery Disease (CAD), Chest Pain / Angina, Deep Vein Thrombosis (DVT), Hyperlipidemia, Myocardial Infarction (MD), Pulmonary Embolus (PE) Last Myocardial Infarction Date:: 04/2017 History of Any Multi-Drug Resistant Organisms: MRSA Date of last positivie culture/infection: 2014 MDRO Source:: abscess abdomen Past Surgical History: Section, Cholecystectomy, Coronary Bypass/CABG, Heart Catheterization Additional Past Surgical History / Comment(s): right wrist surgery, carpal tunnel, MRSA S/P wound. left knee surgery Past Anesthesia/Blood Transfusion Reactions: No Reported Reaction Past Psychological History: No Psychological Hx Reported Smoking Status: Current every day smoker Past Alcohol Use History: None Reported Past Drug Use History: None Reported - Past Family History Mother Family Medical History: Cancer, CVA/TIA, Diabetes Mellitus, Myocardial Infarction (MD), Renal Disease Additional Family Medical History / Comment(s): uterine cancer, artificial valves Father Additional Family Medical History / Comment(s): PAD Brother(s) Family Medical History: Coronary Artery Disease (CAD), Diabetes Mellitus Additional Family Medical History / Comment(s): 2 HEART STENTS, issue with heart valve Sister(s) Additional Family Medical History / Comment(s): psych issues Daughter(s) Family Medical History: No Reported History Son(s) Family Medical History: No Reported History Medications and Allergies Home Medications Medication Instructions Recorded Confirmed Type Apixaban [Eliquis] 5 mg PO BID 02/19/18 02/14/19 History Metoprolol Tartrate 25 mg PO BID 06/10/18 02/14/19 History Ranitidine HCl [Zantac] 150 mg PO HS 02/12/19 02/14/19 History Rosuvastatin Calcium [Crestor] 5 mg PO DAILY 02/12/19 02/14/19 History Allergies Allergy/AdvReac Type Severity Reaction Status Date / Time adhesive Allergy Rash/Hives Verified 02/14/19 07:53 albuterol Allergy Anaphylaxis Verified 02/14/19 07:53 amoxicillin Allergy Anaphylaxis Verified 02/14/19 07:53 ampicillin Allergy Anaphylaxis Verified 02/14/19 07:53 azithromycin [From Zithromax] Allergy Anaphylaxis Verified 02/14/19 07:53 erythromycin base Allergy Anaphylaxis Verified 02/14/19 07:53 latex Allergy Rash/Hives Verified 02/14/19 07:53 penicillin V Allergy Anaphylaxis Verified 02/14/19 07:53 Physical Exam Vitals: Vital Signs Temp Pulse Pulse Resp BP BP BP 02/14/19 04:00 97.6 F 75 16 121/74 02/14/19 00:53 98.1 F 84 18 123/77 02/13/19 21:58 18 02/13/19 20:35 98.7 F 96 16 110/71 Pulse Ox 02/14/19 04:00 02/14/19 00:53 97 02/13/19 21:58 02/13/19 20:35 98 Intake and Output 02/13/19 02/14/19 02/14/19 22:59 06:59 14:59 Other: Weight 127.006 kg Results 02/14/19 06:18 02/13/19 21:35 Cardiac Enzymes 02/13/19 02/13/19 02/14/19 Range/Units 21:35 21:35 06:18 AST 17 (14-36) U/L Troponin I <0.012 <0.012 (0.000-0.034) ng/mL Coagulation 02/13/19 02/13/19 02/14/19 Range/Units 21:35 23:39 06:18 PT 9.4 9.4 (9.0-12.0) sec APTT 24.1 23.6 145.6 H* (22.0-30.0) sec CBC 02/13/19 02/13/19 02/14/19 Range/Units 21:35 23:39 06:18 WBC 9.0 9.1 7.6 (3.8-10.6) k/uL RBC 4.56 4.66 4.30 (3.80-5.40) m/uL Hgb 13.7 13.8 12.9 (11.4-16.0) gm/dL Hct 40.6 41.9 38.9 (34.0-46.0) % Plt Count 322 326 295 (150-450) k/uL Comprehensive Metabolic Panel 02/13/19 Range/Units 21:35 Sodium 139 (137-145) mmol/L Potassium 4.1 (3.5-5.1) mmol/L Chloride 102 (98-107) mmol/L Carbon Dioxide 30 (22-30) mmol/L BUN 16 (7-17) mg/dL Creatinine 0.98 (0.52-1.04) mg/dL Glucose 99 (74-99) mg/dL Calcium 9.5 (8.4-10.2) mg/dL AST 17 (14-36) U/L ALT 21 (9-52) U/L Alkaline Phosphatase 81 (38-126) U/L Total Protein 7.0 (6.3-8.2) g/dL Albumin 4.0 (3.5-5.0) g/dL Current Medications Generic Name Dose Route Start Last Admin Trade Name Freq PRN Reason Stop Dose Admin Heparin Sodium (Porcine) 0 unit 02/13/19 22:52 Heparin IV PER PROTOCOL PRN Low PTT Protocol Sodium Chloride 1,000 mls @ 80 mls/hr 02/14/19 00:30 02/14/19 01:25 Saline 0.9% IV 80 mls/hr .[id number] [id number] Administration Morphine Sulfate 2 mg 02/14/19 02:07 Morphine Sulfate (Inj) IVP Q4H PRN Pain/Discomfort Naloxone HCl 0.2 mg 02/14/19 00:21 Narcan IV Q2M PRN Opioid Reversal Intake and Output 02/13/19 02/14/19 02/14/19 22:59 06:59 14:59 Other: Weight 127.006 kg 02/14/19 06:18 02/13/19 21:35
--- NOTE | 2019-02-14 11:23 | ECHOF ---
Referral Reason: MEASUREMENTS -------- HEIGHT: 160.0 cm WEIGHT: 127.0 kg BP: 121/74 RVIDd: 3.5 cm (< 3.3) IVSd: 1.4 cm (0.6 - 1.1) LVIDd: 3.8 cm (3.9 - 5.3) LVPWd: 1.5 cm (0.6 - 1.1) IVSs: 1.5 cm LVIDs: 2.8 cm LVPWs: 1.7 cm LAESV Index (A-L): 19.61 ml/m Ao Diam: 3.1 cm (2.0 - 3.7) AV Cusp: 2.2 cm (1.5 - 2.6) LA Diam: 4.4 cm (2.7 - 3.8) MV EXCURSION: 17.459 mm (> 18.000) MV EF SLOPE: 52 mm/s (70 - 150) EPSS: 0.7 cm MV E Floyd: 0.81 m/s MV DecT: 196 ms MV A Floyd: 0.88 m/s MV E/A Ratio: 0.92 RAP: 5.00 mmHg RVSP: 29.34 mmHg FINDINGS -------- Sinus rhythm. This was a technically difficult study with suboptimal views. The left ventricular size is normal. There is moderate concentric left ventricular hypertrophy. O verall left ventricular systolic function is normal with, an EF between 55 - 60 %. Septal wall alvin on is delayed and consistent with prior cardiac surgery. Apical septum LV wall motion is hypokineti c. The right ventricle is mildly enlarged. Normal LA size by volume 22+/-6 ml/m2. The right atrial size is normal. 5.0mg of Lumason was utilized for enhancement of images Interatrial and interventricular septum intact. The aortic valve was not well visualized. There is no evidence of aortic regurgitation. There is no evidence of aortic stenosis. No mitral regurgitation. Mild tricuspid regurgitation present. There is no evidence of pulmonary hypertension. The right v entricular systolic pressure, as measured by Doppler, is 29.34mmHg. There is no pulmonic regurgitation present. The aortic root size is normal. IVC Not well visulized. There is no pericardial effusion. CONCLUSIONS -------- 1. Sinus rhythm. 2. This was a technically difficult study with suboptimal views. 3. The left ventricular size is normal. 4. There is moderate concentric left ventricular hypertrophy. 5. Overall left ventricular systolic function is normal with, an EF between 55 - 60 %. 6. Septal wall motion is delayed and consistent with prior cardiac surgery. 7. Apical septum LV wall motion is hypokinetic. 8. The right ventricle is mildly enlarged. 9. Normal LA size by volume 22+/-6 ml/m2. 10. The right atrial size is normal. 11. 5.0mg of Lumason was utilized for enhancement of images 12. Interatrial and interventricular septum intact. 13. The aortic valve was not well visualized. 14. There is no evidence of aortic regurgitation. 15. There is no evidence of aortic stenosis. 16. No mitral regurgitation. 17. Mild tricuspid regurgitation present. 18. There is no evidence of pulmonary hypertension. 19. The right ventricular systolic pressure, as measured by Doppler, is 29.34mmHg. 20. There is no pulmonic regurgitation present. 21. The aortic root size is normal. 22. IVC Not well visulized. 23. There is no pericardial effusion. ATTORNEY GENERAL: Gisele Martino RDCS
[2019-02-14 12:10] VITALS: BP 106/67; PULSE 68; TEMP 98
--- NOTE | 2019-02-14 19:50 | P.HPIM ---
History of Present Illness H&P Date: 02/14/19 Chief Complaint: Chest pain Patient is a 38-year-old female with a known history of DVT and pulmonary embolism, coronary artery disease with history of CABG, history of PR and nicotine addiction came to ER with complaints of chest pain. Chest pain is mainly under the left breast, worsens with deep breathing. Worsens with coughing as well. No associated nausea vomiting or abdominal pain. Chest pain is like stabbing type pain. No radiation. No headache or dizziness or lightheadedness. No palpitations. No leg swelling. Patient initially went to [facility] and had cardiac workup. Is unremarkable. Patient left AMA. Patient otherwise continues to have pain and came to ER for evaluation. Patient is on chronic anticoagulation with Eliquis. Patient is not taking adequate ablation for the past 4-5 days. EKG reveals sinus mechanism with T-wave inversions anteriorly, chronic. No changes. Bilateral lower extremity venous duplex reveals no DVT in the right lower extremity with evidence of chronic and acute left lower extremity DVT. Laboratory data reviewed, CBC unremarkable, d-dimer 1.08, sodium 139, potassium 4.1, creatinine 0.98, magnesium 2.1, cardiac enzymes negative 2. Current prescribed daily medications include Eliquis 5 mg twice a day, m etoprolol 25 mg twice a day rosuvastatin 5 mg daily. D-dimer 1.08 Review of Systems Constitutional: Patient denies any fever or chills . No generalized weakness or weight loss. Abdomen: Patient denied nausea vomiting and diarrhea and abdominal pain. Cardiovascular: Agent does have pleuritic chest pain and mild shortness of breath. No palpitations. Respiratory: patient denied any cough is from production. No shortness of breath Neurologic: Patient denied any numbness or tingling headache. Musculoskeletal: Patient denies any complaints of joint swelling or deformity. Skin: Negative Psychiatric: Negative Endocrine: No heat or cold intolerance. No recent weight gain. Genitourinary: No dysuria or hematuria. All other 14 point ROS negative except the above Past Medical History Past Medical History: Coronary Artery Disease (CAD), Chest Pain / Angina, Deep Vein Thrombosis (DVT), Hyperlipidemia, Myocardial Infarction (PR), Pulmonary Embolus (PE) Last Myocardial Infarction Date:: 04/2017 History of Any Multi-Drug Resistant Organisms: MRSA Date of last positivie culture/infection: 2015 MDRO Source:: abscess abdomen Past Surgical History: Section, Cholecystectomy, Coronary Bypass/CABG, Heart Catheterization Additional Past Surgical History / Comment(s): right wrist surgery, carpal tunnel, MRSA S/P wound. left knee surgery Past Anesthesia/Blood Transfusion Reactions: No Reported Reaction Past Psychological History: No Psychological Hx Reported Smoking Status: Current every day smoker Past Alcohol Use History: None Reported Past Drug Use History: None Reported - Past Family History Mother Family Medical History: Cancer, CVA/TIA, Diabetes Mellitus, Myocardial Infarction (PR), Renal Disease Additional Family Medical History / Comment(s): uterine cancer, artificial valves Father Additional Family Medical History / Comment(s): PAD Brother(s) Family Medical History: Coronary Artery Disease (CAD), Diabetes Mellitus Additional Family Medical History / Comment(s): 2 HEART STENTS, issue with heart valve Sister(s) Additional Family Medical History / Comment(s): psych issues Daughter(s) Family Medical History: No Reported History Son(s) Family Medical History: No Reported History Medications and Allergies Home Medications Medication Instructions Recorded Confirmed Type Apixaban [Eliquis] 5 mg PO BID 02/19/18 02/14/19 History Metoprolol Tartrate 25 mg PO BID 06/10/18 02/14/19 History Ranitidine HCl [Zantac] 150 mg PO HS 02/12/19 02/14/19 History Rosuvastatin Calcium [Crestor] 5 mg PO DAILY 02/12/19 02/14/19 History Allergies Allergy/AdvReac Type Severity Reaction Status Date / Time adhesive Allergy Rash/Hives Verified 02/14/19 07:53 albuterol Allergy Anaphylaxis Verified 02/14/19 07:53 amoxicillin Allergy Anaphylaxis Verified 02/14/19 07:53 ampicillin Allergy Anaphylaxis Verified 02/14/19 07:53 azithromycin [From Zithromax] Allergy Anaphylaxis Verified 02/14/19 07:53 erythromycin base Allergy Anaphylaxis Verified 02/14/19 07:53 latex Allergy Rash/Hives Verified 02/14/19 07:53 penicillin V Allergy Anaphylaxis Verified 02/14/19 07:53 Physical Exam Vitals: Vital Signs Temp Pulse Pulse Resp BP BP BP 02/14/19 08:00 97.8 F 71 18 113/72 02/14/19 04:00 97.6 F 75 16 121/74 02/14/19 00:53 98.1 F 84 18 123/77 02/13/19 21:58 18 02/13/19 20:35 98.7 F 96 16 110/71 Pulse Ox 02/14/19 08:00 97 02/14/19 04:00 02/14/19 00:53 97 02/13/19 21:58 02/13/19 20:35 98 Intake and Output 02/13/19 02/14/19 02/14/19 22:59 06:59 14:59 Other: Voiding Method Toilet Weight 127.006 kg PHYSICAL EXAMINATION: Patient is lying in the bed comfortably, no acute distress, awake alert and oriented.. HEENT: Normocephalic. Neck is supple. Pupils reactive. Nostrils clear. Oral cavity is moist. Ears reveal no drainage. Neck reveals no JVD, carotid bruits, or thyromegaly. CHEST EXAMINATION: Trachea is central. Symmetrical expansion. Lung marquez clear to auscultation and percussion. CARDIAC: Normal S1, S2 with no gallops. No murmurs ABDOMEN: Soft. Bowel sounds normal. No organomegaly. No abdominal bruits. Extremities: reveal no edema. No clubbing or cyanosis Neurologically awake, alert, oriented x3 with well-coordinated movements. No focal deficits noted Skin: No rash or skin lesions. Psychiatric: Coperative. Nonsuicidal Musculoskeletal: No joint swelling or deformity. Normal range of motion. Results CBC & Chem 7: 02/14/19 06:18 02/13/19 21:35 Labs: Abnormal Lab Results - Last 24 Hours (Table) 02/13/19 02/14/19 Range/Units 21:35 06:18 APTT 145.6 H* (22.0-30.0) sec D-Dimer 1.08 H (<0.60) mg/L FEU Thrombosis Risk Factor Assmnt - Choose All That Apply Any of the Below Risk Factors Present?: Yes Each Factor Represents 1 point: Obesity (BMI >25), Swollen legs (current) Other Risk Factors: Yes Each Risk Factor Represents 3 Points: History of DVT/PE Other congenital or acquired thrombophilia - If yes, enter type in comment: No Thrombosis Risk Factor Assessment Total Risk Factor Score: 5 Thrombosis Risk Factor Assessment Level: High Risk Assessment and Plan Assessment: Pleuritic chest pain with history of PE. CT angiogram at the [facility] is negative for PE on 02/12/2019 Acute and chronic left lower extremity DVT. Currently on anticoagulation with Eliquis. Coronary artery disease with history of CABG Hypertension Hyperlipidemia Ongoing nicotine addiction Noncompliance with anticoagulation. Plan: Patient was continued on heparin drip. Patient did improve symptomatically. Currently started back on Eliquis. 2-D echo cardiac exam showed no structural abnormalities. Patient was counseled extensively for medication complaints. Recommends a follow with hematology as well as an outpatient. Patient was seen by cardiology. \] Time with Patient: Greater than 30
--- NOTE | 2019-02-14 19:51 | P.DS ---
Providers Date of admission: 02/14/19 00:10 Expected date of discharge: 02/14/19 Attending physician: Cody Mcdaniels Consults: 02/14/19 00:21 Consult Physician Stat Consulting Provider: Heather Perez Consult Reason/Comments: chest pain, hx PE CABG Do you want consulting provider notified?: Yes, Notify in am Primary care physician: Marya [facility] Course: Discharge diagnosis Pleuritic chest pain with history of PE. CT angiogram at the [facility] is negative for PE on 02/12/2019 Acute and chronic left lower extremity DVT. Currently on anticoagulation with E liquis. Coronary artery disease with history of CABG Hypertension Hyperlipidemia Ongoing nicotine addiction Noncompliance with anticoagulation. Hospital course Patient is a 38-year-old female with a known history of DVT and pulmonary embolism, coronary artery disease with history of CABG, history of VT and nicotine addiction came to ER with complaints of chest pain. Chest pain is mainly under the left breast, worsens with deep breathing. Worsens with coughing as well. No associated nausea vomiting or abdominal pain. Chest pain is like stabbing type pain. No radiation. No headache or dizziness or lightheadedness. No palpitations. No leg swelling. Patient initially went to [facility] and had cardiac workup. Is unremarkable. Patient left AMA. Patient otherwise continues to have pain and came to ER for evaluation. Patient is on chronic anticoagulation with Eliquis. Patient is not taking adequate ablation for the past 4-5 days. EKG reveals sinus mechanism with T-wave inversions anteriorly, chronic. No changes. Bilateral lower extremity venous duplex reveals no DVT in the right lower extremity with evidence of chronic and acute left lower extremity DVT. Laboratory data reviewed, CBC unremarkable, d-dimer 1.08, sodium 139, potassium 4.1, creatinine 0.98, magnesium 2.1, cardiac enzymes negative 2. Current prescribed daily medications include Eliquis 5 mg twice a day, metoprolol 25 mg twice a day rosuvastatin 5 mg daily. D-dimer 1.08 Patient was continued on heparin drip. Patient did improve symptomatically. Currently started back on Eliquis. 2-D echo cardiac exam showed no structural abnormalities. Patient was counseled extensively for medication complaints. Recommends a follow with hematology as well as an outpatient. Patient was seen by cardiology. Discharge physical examination was done and vitals reviewed. Patient Condition at Discharge: Serious Plan - Discharge Summary Discharge Rx Participant: No New Discharge Prescriptions: Continue Apixaban [Eliquis] 5 mg PO BID Metoprolol Tartrate 25 mg PO BID Ranitidine HCl [Zantac] 150 mg PO HS Rosuvastatin Calcium [Crestor] 5 mg PO DAILY Discharge Medication List Apixaban [Eliquis] 5 mg PO BID 02/19/18 [History] Metoprolol Tartrate 25 mg PO BID 06/10/18 [History] Ranitidine HCl [Zantac] 150 mg PO HS 02/12/19 [History] Rosuvastatin Calcium [Crestor] 5 mg PO DAILY 02/12/19 [History] Follow up Appointment(s)/Referral(s): Pio Montague MD [STAFF PHYSICIAN] - 1 Week (office will call the patient with date and time for follow up with Dr. LORE Montague.) Marya Foreman MD [Primary Care Provider] - 1-2 days Patient Instructions/Handouts: Chest Pain (DC) Discharge Disposition: HOME SELF-CARE
[2019-02-14] MEDS ORDERED: FAMOTIDINE 20 MG TAB PO SCH (21:00)
== END 2019-02-14 13:04 | disposition home or self-care (01) ==
LOC: EC 20:12 → 1SOBS 02-14 00:10
PROVIDERS: ADMIT Hospitalist; ATTEND Hospitalist
DX: R07.1 Chest pain on breathing (principal); I82.432 Acute embolism and thrombosis of left popliteal vein; I82.532 Chronic embolism and thrombosis of left popliteal vein; I10 Essential (primary) hypertension; I25.10 Atherosclerotic heart disease of native coronary artery without angina pectoris; E78.5 Hyperlipidemia, unspecified; Z91.14 Patient's other noncompliance with medication regimen; R79.89 Other specified abnormal findings of blood chemistry; F17.200 Nicotine dependence, unspecified, uncomplicated; R51 Headache; E66.01 Morbid (severe) obesity due to excess calories; Z68.42 Body mass index [BMI] 45.0-49.9, adult; R06.02 Shortness of breath; R22.41 Localized swelling, mass and lump, right lower limb; Z79.899 Other long term (current) drug therapy; Z79.01 Long term (current) use of anticoagulants; Z88.1 Allergy status to other antibiotic agents; Z91.040 Latex allergy status; Z88.0 Allergy status to penicillin; Z88.8 Allergy status to other drugs, medicaments and biological substances; Z91.048 Other nonmedicinal substance allergy status; Z86.711 Personal history of pulmonary embolism; I25.2 Old myocardial infarction; Z86.14 Personal history of Methicillin resistant Staphylococcus aureus infection; Z90.49 Acquired absence of other specified parts of digestive tract; Z95.1 Presence of aortocoronary bypass graft; Z83.3 Family history of diabetes mellitus; Z82.49 Family history of ischemic heart disease and other diseases of the circulatory system; Z80.49 Family history of malignant neoplasm of other genital organs; Z84.1 Family history of disorders of kidney and ureter; Z81.8 Family history of other mental and behavioral disorders; Z82.3 Family history of stroke
CPT/HCPCS: 93005 ×2; 96374; 96375; 99285; 36415; 93306; 85379; 80053; 83735; 84484 ×2; 85025 ×2; 85610; 85730 ×2; 71046; 93970; G0378; J2270; J1644 ×2; Q9950

== ENCOUNTER 2019-03-11 18:17 | Emergency (ER) | payer BC ==
[2019-03-11] MEDS ORDERED: LIDOCAINE 1% INJ 10MG/ML (20 ML MDV) SQ ONE (18:34)
--- NOTE | 2019-03-11 18:38 | ED ---
General Adult HPI - General Chief complaint: Wound/Laceration Stated complaint: Abcess underarm Time Seen by Provider: 03/11/19 18:22 Source: patient Mode of arrival: ambulatory Limitations: no limitations - History of Present Illness Initial comments: patient is a 38-year-old female presenting to emergency Department with chief complaint of a draining wound. Patient reports on Sunday she developed a small abrasion in the right axilla which she thought it was an ingrown hair. Patient reports she attempted to "pop". Patient reports since then the lesion has increased in size and is not draining green/yellow discharge. 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 Patient reports that the first case since then. Patient denies any night sweats fevers or chills. Patient reports the region in the right eczema is very tender. Patient also reports she is very ALLERGIC to tape and has multiple exc oriations in the right axilla from using not appropriate tape. - Related Data Home Medications Medication Instructions Recorded Confirmed Apixaban [Eliquis] 5 mg PO BID 02/19/18 02/14/19 Metoprolol Tartrate 25 mg PO BID 06/10/18 02/14/19 Ranitidine HCl [Zantac] 150 mg PO HS 02/12/19 02/14/19 Rosuvastatin Calcium [Crestor] 5 mg PO DAILY 02/12/19 02/14/19 Previous Rx's Medication Instructions Recorded Doxycycline Monohydrate [Monodox] 100 mg PO Q12HR #20 cap 03/11/19 Allergies Allergy/AdvReac Type Severity Reaction Status Date / Time adhesive Allergy Rash/Hives Verified 03/11/19 18:21 albuterol Allergy Anaphylaxis Verified 03/11/19 18:21 amoxicillin Allergy Anaphylaxis Verified 03/11/19 18:21 ampicillin Allergy Anaphylaxis Verified 03/11/19 18:21 azithromycin [From Zithromax] Allergy Anaphylaxis Verified 03/11/19 18:21 erythromycin base Allergy Anaphylaxis Verified 03/11/19 18:21 latex Allergy Rash/Hives Verified 03/11/19 18:21 penicillin V Allergy Anaphylaxis Verified 03/11/19 18:21 Review of Systems ROS Statement: Those systems with pertinent positive or pertinent negative responses have been documented in the HPI. ROS Other: All systems not noted in ROS Statement are negative. Past Medical History Past Medical History: Coronary Artery Disease (CAD), Chest Pain / Angina, Deep Vein Thrombosis (DVT), Hyperlipidemia, Myocardial Infarction (MA), Pulmonary Embolus (PE) Last Myocardial Infarction Date:: 04/2017 History of Any Multi-Drug Resistant Organisms: MRSA Date of last positivie culture/infection: 2014 MDRO Source:: abscess abdomen Past Surgical History: Section, Cholecystectomy, Coronary Bypass/CABG, Heart Catheterization Additional Past Surgical History / Comment(s): right wrist surgery, carpal tunnel, MRSA S/P wound. left knee surgery Past Anesthesia/Blood Transfusion Reactions: No Reported Reaction Past Psychological History: No Psychological Hx Reported Smoking Status: Current every day smoker Past Alcohol Use History: None Reported Past Drug Use History: None Reported - Past Family History Mother Family Medical History: Cancer, CVA/TIA, Diabetes Mellitus, Myocardial Infarction (MA), Renal Disease Additional Family Medical History / Comment(s): uterine cancer, artificial valves Father Additional Family Medical History / Comment(s): PAD Brother(s) Family Medical History: Coronary Artery Disease (CAD), Diabetes Mellitus Additional Family Medical History / Comment(s): 2 HEART STENTS, issue with heart valve Sister(s) Additional Family Medical History / Comment(s): psych issues Daughter(s) Family Medical History: No Reported History Son(s) Family Medical History: No Reported History General Exam Limitations: no limitations General appearance: alert, in no apparent distress, obese Head exam: Present: atraumatic, normocephalic, normal inspection Eye exam: Present: normal appearance, PERRL, EOMI Pupils: Present: normal accommodation ENT exam: Present: normal exam, normal oropharynx, mucous membranes moist, TM's normal bilaterally, normal external ear exam Neck exam: Present: normal inspection, full ROM Respiratory exam: Present: normal lung sounds bilaterally Cardiovascular Exam: Present: regular rate, normal rhythm, normal heart sounds Extremities exam: Present: full ROM. Absent: normal inspection (Lesion in the right axilla appears to be an abscess with yellow/green drainage. 1.5 cm of induration with less than 1 cm of fluctuance. Mild surrounding erythema.) Back exam: Present: normal inspection, full ROM. Absent: CVA tenderness (R), CVA tenderness (L) Neurological exam: Present: alert, oriented X3 Psychiatric exam: Present: normal affect, normal mood Skin exam: Present: warm, dry, intact, normal color Course Vital Signs 03/11/19 18:19 Temperature 97.7 F Pulse Rate 92 Respiratory 20 Rate Blood Pressure 145/91 O2 Sat by Pulse 99 Oximetry Procedures - Incision & Drainage Consent Obtained: verbal consent Indication: Axillary abscess Site: other (Right axilla) Size (cm): 2 Anesthetic Used: lidocaine 1% Amount (mLs): 3 I&D Cleaning Method: Betadine Sterile Field Used?: Yes Scalpel Used: #11 Needle Aspiration Performed?: No Irrigation Performed?: No I&D Drainage Obtained: Pus, Blood Culture Obtained?: Yes Complications: pain, bleeding Patient Tolerated Procedure: well, no complications Medical Decision Making - Medical Decision Making patient is a 38-year-old female presenting to emergency Department chief complaint of an abscess. On physical examination there appears to be a draining abscess in the right axilla with about 1.5 cm of induration and less than 1 cm fluctuance. Wound culture was obtained. Patient was given [place] 5 for pain. Patient will be discharged with a Tylenol 3 starter pack. Patient advised about the possible side effects of the medication. Patient given a single dose of doxycycline discharged with 10 day dose of doxycycline. Patient has a history of MRSA so we will cover for it. I performed an quite a bit of pus and blood was removed. No packing applied. Patient advised to follow-up with primary care. Strict return primary's were thoroughly discussed with patient was understanding and agreeable. Case discussed with physician. Disposition Clinical Impression: Abscess of axilla, right Disposition: HOME SELF-CARE Condition: Stable Instructions (If sedation given, give patient instructions): Abscess (ED) Additional Instructions: Please take prescribed medication as directed. Please follow up with primary care. Please return to emergency department if symptoms worsen. Prescriptions: Doxycycline Monohydrate [Monodox] 100 mg PO Q12HR #20 cap Is patient prescribed a controlled substance at d/c from ED?: No Referrals: Marya Foreman MD [Primary Care Provider] - 1-2 days Time of Disposition: 19:29
[2019-03-11] MEDS ORDERED: HYDROcodone/APAP 5-325MG 1 EACH TAB PO STA (18:52)
[2019-03-11] MEDS ORDERED: ACET/COD 300 MG/30 MG STARTER PACK 6 TAB BTL PO STA (18:52)
[2019-03-11] MEDS ORDERED: DOXYCYCLINE 100 MG CAP PO STA (19:05)
[2019-03-11 20:11] VITALS: BP 140/85; PULSE 88; RESP 18; TEMP 98
== END 2019-03-11 20:12 | disposition home or self-care (01) ==
LOC: EC 18:17
DX: L02.411 Cutaneous abscess of right axilla (principal); I25.119 Atherosclerotic heart disease of native coronary artery with unspecified angina pectoris; E78.5 Hyperlipidemia, unspecified; I25.2 Old myocardial infarction; F17.200 Nicotine dependence, unspecified, uncomplicated; Z88.0 Allergy status to penicillin; Z88.1 Allergy status to other antibiotic agents; Z88.8 Allergy status to other drugs, medicaments and biological substances; Z91.040 Latex allergy status; Z91.048 Other nonmedicinal substance allergy status; Z79.01 Long term (current) use of anticoagulants; Z79.899 Other long term (current) drug therapy; Z86.14 Personal history of Methicillin resistant Staphylococcus aureus infection; Z86.718 Personal history of other venous thrombosis and embolism; Z86.711 Personal history of pulmonary embolism; Z95.1 Presence of aortocoronary bypass graft; Z98.890 Other specified postprocedural states
CPT/HCPCS: 87070; 87205; 87077; 87186; 99283; 10060; J2001

== ENCOUNTER 2019-04-03 18:05 | Observation (INO) | payer BC ==
[2019-04-03] MEDS ORDERED: NITROGLYCERIN OINT 1 INCH/GM PACKET TOPICAL STA (18:06)
[2019-04-03] MEDS ORDERED: NITROGLYCERIN SL TABS 0.4 MG TAB SUBLINGUAL PRN (18:19)
--- NOTE | 2019-04-03 18:19 | ED ---
General Adult HPI - General Stated complaint: chest pain Time Seen by Provider: 04/03/19 18:05 Source: RN notes reviewed, old records reviewed - History of Present Illness Initial comments: 38-year-old female with past medical history significant for ME bypass multiple pulmonary embolisms and multiple DVTs. Patient is on eliquis. Patient arrived at [place] this morning with chest pain shortness of breath. Patient had a CAT scan at [facility] showed no PE. Patient's initial troponin was negative. They wanted the patient to come down reported be evaluated by cardiology. Patient states she still having some mild chest pain and some shortness of breath. Patient states at no time was she diaphoretic. Patient denies any nausea patient patient had abdominal pain patient denies any headache patient denies numbness weakness. Patient denies any lightheadedness or dizziness. - Related Data Home Medications Medication Instructions Recorded Confirmed Apixaban [Eliquis] 5 mg PO BID 02/19/18 02/14/19 Metoprolol Tartrate 25 mg PO BID 06/10/18 02/14/19 Ranitidine HCl [Zantac] 150 mg PO HS 02/12/19 02/14/19 Rosuvastatin Calcium [Crestor] 5 mg PO DAILY 02/12/19 02/14/19 Previous Rx's Medication Instructions Recorded Doxycycline Monohydrate [Monodox] 100 mg PO Q12HR #20 cap 03/11/19 Allergies Allergy/AdvReac Type Severity Reaction Status Date / Time adhesive Allergy Rash/Hives Verified 03/11/19 18:21 albuterol Allergy Anaphylaxis Verified 03/11/19 18:21 amoxicillin Allergy Anaphylaxis Verified 03/11/19 18:21 ampicillin Allergy Anaphylaxis Verified 03/11/19 18:21 azithromycin [From Zithromax] Allergy Anaphylaxis Verified 03/11/19 18:21 erythromycin base Allergy Anaphylaxis Verified 03/11/19 18:21 latex Allergy Rash/Hives Verified 03/11/19 18:21 penicillin V Allergy Anaphylaxis Verified 03/11/19 18:21 Review of Systems ROS Statement: Those systems with pertinent positive or pertinent negative responses have been documented in the HPI. ROS Other: All systems not noted in ROS Statement are negative. Past Medical History Past Medical History: Coronary Artery Disease (CAD), Chest Pain / Angina, Deep Vein Thrombosis (DVT), Hyperlipidemia, Myocardial Infarction (ME), Pulmonary Embolus (PE) Last Myocardial Infarction Date:: 04/2017 History of Any Multi-Drug Resistant Organisms: MRSA Date of last positivie culture/infection: 2014 MDRO Source:: abscess abdomen Past Surgical History: Section, Cholecystectomy, Coronary Bypass/CABG, Heart Catheterization Additional Past Surgical History / Comment(s): right wrist surgery, carpal tunnel, MRSA S/P wound. left knee surgery Past Anesthesia/Blood Transfusion Reactions: No Reported Reaction Past Psychological History: No Psychological Hx Reported Smoking Status: Current every day smoker Past Alcohol Use History: None Reported Past Drug Use History: None Reported - Past Family History Mother Family Medical History: Cancer, CVA/TIA, Diabetes Mellitus, Myocardial Infarction (ME), Renal Disease Additional Family Medical History / Comment(s): uterine cancer, artificial valves Father Additional Family Medical History / Comment(s): PAD Brother(s) Family Medical History: Coronary Artery Disease (CAD), Diabetes Mellitus Additional Family Medical History / Comment(s): 2 HEART STENTS, issue with heart valve Sister(s) Additional Family Medical History / Comment(s): psych issues Daughter(s) Family Medical History: No Reported History Son(s) Family Medical History: No Reported History General Exam - General Exam Comments Initial Comments: GENERAL: Patient is well-developed and well-nourished. Patient is nontoxic and well- hydrated and is in mild distress. ENT: Neck is soft and supple. No significant lymphadenopathy is noted. Oropharynx is clear. Moist mucous membranes. Neck has full range of motion without eliciting any pain. EYES: The sclera were anicteric and conjunctiva were pink and moist. Extraocular movements were intact and pupils were equal round and reactive to light. Ey elids were unremarkable. PULMONARY: Unlabored respirations. Good breath sounds bilaterally. No audible rales rhonchi or wheezing was noted. CARDIOVASCULAR: There is a regular rate and rhythm without any murmurs gallops or rubs. ABDOMEN: Soft and nontender with normal bowel sounds. SKIN: Skin is clear with no lesions or rashes and otherwise unremarkable. NEUROLOGIC: Patient is alert and oriented x3. Cranial nerves II through XII are grossly intact. Motor and sensory are also intact. Normal speech, volume and content. Symmetrical smile. MUSCULOSKELETAL: Normal extremities with adequate strength and full range of motion. No lower extremity swelling or edema. No calf tenderness. LYMPHATICS: No significant lymphadenopathy is noted PSYCHIATRIC: Normal psychiatric evaluation. Medical Decision Making - Medical Decision Making EKG shows normal sinus rhythm at 86 bpm ID interval 250 QRS is 84 QT interval 376 QTC is 449. Patient's EKG shows no ST segment elevation or depression or T wave abnormalities are noted. I spoke with she he agreed to admit the patient admitted the patient I wrote admitting orders. Disposition Clinical Impression: Unstable angina Disposition: ADMITTED IP TO THIS HOSP Referrals: Marya Foreman MD [Primary Care Provider] - 1-2 days Time of Disposition: 18:19
[2019-04-03] MEDS ORDERED: HYDROcodone/APAP 5-325MG 1 EACH TAB PO PRN (21:01)
[2019-04-03] MEDS: APIXABAN 5 MG TAB PO SCH (21:14)
[2019-04-03] MEDS: NICOTINE 14MG/24HR PATCH TRANSDERM SCH (21:14)
[2019-04-03] MEDS ORDERED: METOPROLOL TARTRATE 25 MG TAB PO SCH (21:15)
[2019-04-03 22:09] VITALS: RESP 18
[2019-04-04] MEDS: NITROGLYCERIN OINT 1 INCH/GM PACKET TOPICAL SCH ×2 (00:13→04:05)
[2019-04-04 01:01] LABS: Basophils % (A) 0 %; Eosinophils # (A) 0.2 k/uL (0-0.7); Eosinophils % (A) 2 %; HCT 37.6 % (34.0-46.0); HGB 12.3 gm/dL (11.4-16.0); Lymphocytes # (A) 2.6 k/uL (1.0-4.8); Lymphocytes % (A) 40 %; MCH 29.1 pg (25.0-35.0); MCHC 32.8 g/dL (31.0-37.0); MCV 88.8 fL (80.0-100.0); Mean Platelet Volume 7.2; Monocytes # (A) 0.4 k/uL (0-1.0); Monocytes % (A) 5 %; Neutrophils # (A) 3.3 k/uL (1.3-7.7); Neutrophils % (A) 49 %; Platelet Count 245 k/uL (150-450); RBC 4.24 m/uL (3.80-5.40); RDW 13.2 % (11.5-15.5); WBC 6.6 k/uL (3.8-10.6)
[2019-04-04 01:11] LABS: African American GFR (CKD) >90 (>60 ml/min/1.73 sqM); Anion Gap 5 mmol/L; Blood Urea Nitrogen 10 mg/dL (7-17); Calcium 8.9 mg/dL (8.4-10.2); Carbon Dioxide 29 mmol/L (22-30); Chloride 103 mmol/L (98-107); Glucose 109 mg/dL (74-99); Non-African American GFR(CKD) >90 (>60 ml/min/1.73 sqM); Potassium 3.7 mmol/L (3.5-5.1); Sodium 137 mmol/L (137-145)
[2019-04-04 01:12] LABS: HCG,Qualitative Serum Not Detected
[2019-04-04 07:39] LABS: Cholesterol 169 mg/dL (<200); HDL Cholesterol 37 mg/dL (40-60); LDL Cholesterol,Calculated 108 mg/dL (0-99); Triglycerides 120 mg/dL (<150)
[2019-04-04] MEDS ORDERED: DOBUTamine DRIP for NUC MED 500 MG in DEXTROSE/WATER 1 250ML.BAG IV ONE (08:12)
[2019-04-04] MEDS ORDERED: ATORVASTATIN 40 MG TAB PO SCH (09:00)
[2019-04-04] MEDS ORDERED: ASPIRIN 81 MG PO SCH (09:00)
[2019-04-04] MEDS ORDERED: ASPIRIN 325 MG TAB PO SCH (09:00)
--- NOTE | 2019-04-04 10:15 | P.CRDCN ---
History of Present Illness History of present illness: HISTORY OF PRESENTING ILLNESS This is a pleasant 38-year-old female past medical history significant for coronary artery disease status post single-vessel bypass, DVT and PE mainta ined on long-term anticoagulation, dyslipidemia and hypertension. She has also daily smoker. She underwent bypass surgery in May 2017. Initially she underwent heart catheterization at [facility] revealing a lesion in the mid LAD with evidence of intrinsic dissection, subsequent thereafter she went back to the hospital with a significant rise in her troponin and was found to have a complete total occlusion of the LAD requiring KELLY to LAD. Postprocedure she developed DVT and PE with right ventricular enlargement. She follows in the office currently with Dr. Montague. We've been asked to see her in consultation secondary to chest pain. she is seen and examined sitting up resting comfortably in bed in no acute distress. She states for the previous 2 days she has felt a pressure in the left precordial region. There is no radiation to the arm, back, neck or jaw. It is associated with shortness of breath and fatigue. She denies palpitations, dizziness, nausea, vomiting or diaphoresis. The pain is constantly tight like a pressure pushing on her chest and squeezing her heart with intermittent episodes of sharp stabbing pains when she takes in a deep breath. DIAGNOSTICS EKG reveals sinus mechanism. CTA chest negative for PE. Laboratory reviewed, WBC 6.6, hemoglobin 12.3, platelets 245, sodium 137, potassium 3.7, creatinine 0.1, cardiac enzymes negative 3, C-reactive protein 61.5, LDL 108. Current cardiac medications include Eliquis 5 mg twice a day and metoprolol 25 mg at bedtime. Most recent echocardiogram obtained January 2019 reveals preserved LV systolic function with ejection fraction 55-60%, septal wall motion delay consistent with prior cardiac surgery. REVIEW OF SYSTEMS At the time of my exam: CONSTITUTIONAL: Denies fever or chills. CARDIOVASCULAR: Complains of chest pain. Denies shortness of breath, orthopnea, PND or palpitations. RESPIRATORY: Denies cough. GASTROINTESTINAL: Denies abdominal pain, diarrhea, constipation, nausea or vomiting. MUSCULOSKELETAL: Denies myalgias. NEUROLOGIC: Denies numbness, tingling or weakness. ENDOCRINE: Denies fatigue, weight change, polydipsia or polyurina. GENITOURINARY: Denies burning, hematuria or urgency with micturation. HEMATOLOGIC: Denies history of anemia or bleeding. PHYSICAL EXAMINATION Blood pressure 111/67 heart rate 69 afebrile and maintaining oxygen saturation on room air. CONSTITUTIONAL: No apparent distress. Mobidly obese. HEENT: Head is normocephalic. Pupils are equal, round. Sclerae anicteric. Mucous membranes of the mouth are moist. No JVD. No carotid bruit. CHEST EXAMINATION: Lungs are clear to auscultation. No chest wall tenderness is noted on palpation or with deep breathing. HEART EXAMINATION: Regular rate and rhythm. S1, S2 heard. No murmurs, gallops or rub. Distant heart sounds. ABDOMEN: Soft, nontender. Positive bowel sounds. EXTREMITIES: 2+ peripheral pulses, no lower extremity edema and no calf tenderness. NEUROLOGIC EXAMINATION: Patient is awake, alert and oriented x3. ASSESSMENT Chest pain, atypical. An acute coronary event has been ruled out. Pleuritic features. History of coronary artery disease s/p bypass grafting with KELLY-LAD History of PE and DVT on terminologist anti-coagulation Dyslipidemia Hypertension Chronic nicotine dependence Morbid obesity, BMI 50 PLAN An acute coronary event has been ruled out. No PE on CTA from [place]. Check sedimentation rate and CRP. Perform dobutamine stress echo to assess for stress induced ischemia. Smoking cessation recommended. Initiate on atorvastatin 40 mg daily. Thank you kindly for this consultation. Nurse Practitioner note has been reviewed, I agree with a documented findings and plan of care. Patient was seen and examined. Past Medical History Past Medical History: Coronary Artery Disease (CAD), Chest Pain / Angina, Deep Vein Thrombosis (DVT), Hyperlipidemia, Myocardial Infarction ([place]), Pulmonary Embolus (PE) Last Myocardial Infarction Date:: 04/2017 History of Any Multi-Drug Resistant Organisms: MRSA Date of last positivie culture/infection: 2014 MDRO Source:: abscess abdomen Past Surgical History: Section, Cholecystectomy, Coronary Bypass/CABG, Heart Catheterization Additional Past Surgical History / Comment(s): right wrist surgery, carpal tunnel, MRSA S/P wound. left knee surgery, had a miscarrage Past Anesthesia/Blood Transfusion Reactions: No Reported Reaction Smoking Status: Current some day smoker - Past Family History Mother Family Medical History: Cancer, CVA/TIA, Diabetes Mellitus, Myocardial Infarction ([place]), Renal Disease Additional Family Medical History / Comment(s): uterine cancer, artificial valves Father Additional Family Medical History / Comment(s): PAD Brother(s) Family Medical History: Coronary Artery Disease (CAD), Diabetes Mellitus Additional Family Medical History / Comment(s): 2 HEART STENTS, issue with heart valve Sister(s) Additional Family Medical History / Comment(s): psych issues Daughter(s) Family Medical History: No Reported History Son(s) Family Medical History: No Reported History Medications and Allergies Home Medications Medication Instructions Recorded Confirmed Type Apixaban [Eliquis] 5 mg PO BID 02/19/18 04/03/19 History Metoprolol Tartrate 25 mg PO HS 06/10/18 04/03/19 History Allergies Allergy/AdvReac Type Severity Reaction Status Date / Time adhesive Allergy Rash/Hives Verified 04/03/19 20:23 albuterol Allergy Anaphylaxis Verified 04/03/19 20:23 amoxicillin Allergy Anaphylaxis Verified 04/03/19 20:23 ampicillin Allergy Anaphylaxis Verified 04/03/19 20:23 azithromycin [From Zithromax] Allergy Anaphylaxis Verified 04/03/19 20:23 erythromycin base Allergy Anaphylaxis Verified 04/03/19 20:23 latex Allergy Rash/Hives Verified 04/03/19 20:23 morphine Allergy Hallucinati Verified 04/03/19 20:23 ons penicillin V Allergy Anaphylaxis Verified 04/03/19 20:23 Physical Exam Vitals: Vital Signs Temp Pulse Pulse Resp BP BP Pulse Ox 04/04/19 07:58 98.3 F 69 18 111/67 97 04/04/19 04:00 99.1 F 76 18 110/74 96 04/04/19 03:58 18 04/04/19 00:00 18 04/03/19 23:48 98.4 F 81 18 110/66 96 04/03/19 20:00 18 04/03/19 19:59 98.2 F 82 19 111/82 96 04/03/19 18:19 97.8 F 84 18 125/76 95 Intake and Output 04/03/19 04/04/19 04/04/19 22:59 06:59 14:59 Other: Voiding Method Toilet # Voids 1 Weight 128.367 kg Results 04/04/19 00:33 04/04/19 00:33 Cardiac Enzymes 04/03/19 04/04/19 04/04/19 Range/Units 18:16 00:33 06:33 Troponin I <0.012 <0.012 <0.012 (0.000-0.034) ng/mL Lipids 04/04/19 Range/Units 06:33 Triglycerides 120 (<150) mg/dL Cholesterol 169 (<200) mg/dL HDL Cholesterol 37 L (40-60) mg/dL CBC 04/04/19 Range/Units 00:33 WBC 6.6 (3.8-10.6) k/uL RBC 4.24 (3.80-5.40) m/uL Hgb 12.3 (11.4-16.0) gm/dL Hct 37.6 (34.0-46.0) % Plt Count 245 (150-450) k/uL Comprehensive Metabolic Panel 04/04/19 Range/Units 00:33 Sodium 137 (137-145) mmol/L Potassium 3.7 (3.5-5.1) mmol/L Chloride 103 (98-107) mmol/L Carbon Dioxide 29 (22-30) mmol/L BUN 10 (7-17) mg/dL Creatinine 0.81 (0.52-1.04) mg/dL Glucose 109 H (74-99) mg/dL Calcium 8.9 (8.4-10.2) mg/dL Current Medications Generic Name Dose Route Start Last Admin Trade Name Freq PRN Reason Stop Dose Admin Hydrocodone Bitart/Acetaminophen 1 each 04/03/19 21:01 04/04/19 05:16 Lawrence 5-325 PO 1 each Q6HR PRN Administration Pain Apixaban 5 mg 04/03/19 21:15 04/03/19 21:14 Eliquis PO 5 mg BID BERRY Administration Aspirin 81 mg 04/04/19 09:00 Aspirin PO DAILY BERRY Atorvastatin Calcium 40 mg 04/04/19 09:00 Lipitor PO DAILY [facility] Dobutamine HCl/Dextrose 500 mg 250 mls @ 38.51 mls/hr 04/04/19 08:12 / IV Solution IV 04/04/19 14:41 .Q6H30M ONE Protocol 10 MCG/KG/MIN Metoprolol Tartrate 25 mg 04/03/19 21:15 04/03/19 21:14 Lopressor PO 25 mg HS BERRY Administration Nicotine 1 patch 04/03/19 21:15 04/03/19 21:14 Habitrol 14mg/24hr Patch TRANSDERM 1 patch DAILY BERRY Administration Nitroglycerin 0.4 mg 04/03/19 18:19 Nitrostat SUBLINGUAL Q5M PRN Chest Pain Intake and Output 04/03/19 04/04/19 04/04/19 22:59 06:59 14:59 Other: Voiding Method Toilet # Voids 1 Weight 128.367 kg 04/04/19 00:33 04/04/19 00:33
[2019-04-04] MEDS: NICOTINE 14MG/24HR PATCH TRANSDERM SCH (10:38)
[2019-04-04] MEDS ORDERED: IBUPROFEN 400 MG TAB PO PRN (11:23)
[2019-04-04] MEDS ORDERED: ATROPINE SULFATE 0.1 MG/ML 10ML SYRINGE ONE (11:25)
[2019-04-04] MEDS ORDERED: COLCHICINE 0.6 MG EACH PO SCH (11:30)
[2019-04-04] MEDS ORDERED: PANTOPRAZOLE 40 MG TABLET PO SCH (11:30)
[2019-04-04] MEDS: APIXABAN 5 MG TAB PO SCH (12:04)
[2019-04-04 15:34] VITALS: BP 111/73; PULSE 71; TEMP 98.3
[2019-04-04] MEDS ORDERED: DOXYCYCLINE 100 MG in SODIUM CHLORIDE 0.9% 100 ML IVPB SCH (16:00)
--- NOTE | 2019-04-04 16:52 | P.HPIM ---
History of Present Illness H&P Date: 04/04/19 Chief Complaint: Chest pain 38-year-old female with past medical history significant for NH bypass multiple pulmonary embolisms and multiple DVTs. Patient is on eliquis. Patient arrived at [place] this morning with chest pain shortness of breath. Patient had a CAT scan at [facility] showed no PE. Patient's initial troponin was negative. They wanted the patient to come down reported be evaluated by cardiology. Patient states she still having some mild chest pain and some shortness of breath. Patient states at no time was she diaphoretic. Patient denies any nausea patient patient had abdominal pain patient denies any headache patient denies numbness weakness. Patient denies any lightheadedness or dizziness. EKG reveals sinus mechanism. CTA chest negative for PE. Laboratory reviewed, WBC 6.6, hemoglobin 12.3, platelets 245, sodium 137, potassium 3.7, creatinine 0.1, cardiac enzymes negative 3, C-reactive protein 61.5, LDL 108. Current cardiac medications include Eliquis 5 mg twice a day and metoprolol 25 mg at bedtime. Most recent echocardiogram obtained January 2019 reveals preserved LV systolic function with ejection fraction 55-60%, septal wall motion delay consistent with prior cardiac surgery. Cardiology saw patient and recommended dobutamine stress echo which was unremarkable; patient was started on colchicine with diagnosis of possible pericarditis and recommended outpatient follow-up with cardiology as an outpatient Review of Systems REVIEW OF SYSTEMS: CONSTITUTIONAL: No fever, no malaise, no fatigue. HEENT: No recent visual problems or hearing problems. Denied any sore throat. CARDIOVASCULAR: No chest pain, orthopnea, PND, no palpitations, no syncope. PULMONARY: No shortness of breath, no cough, no hemoptysis. GASTROINTESTINAL: No diarrhea, no nausea, no vomiting, no abdominal pain. NEUROLOGICAL: No headaches, no weakness, no numbness. HEMATOLOGICAL: Denies any bleeding or petechiae. GENITOURINARY: Denies any burning micturition, frequency, or urgency. MUSCULOSKELETAL/RHEUMATOLOGICAL: Denies any joint pain, swelling, or any muscle pain. ENDOCRINE: Denies any polyuria or polydipsia. The rest of the 14-point review of systems is negative. Past Medical History Past Medical History: Coronary Artery Disease (CAD), Chest Pain / Angina, Deep Vein Thrombosis (DVT), Hyperlipidemia, Myocardial Infarction ([place]), Pulmonary Embolus (PE) Last Myocardial Infarction Date:: 04/2017 History of Any Multi-Drug Resistant Organisms: MRSA Date of last positivie culture/infection: 2014 MDRO Source:: abscess abdomen Past Surgical History: Section, Cholecystectomy, Coronary Bypass/CABG, Heart Catheterization Additional Past Surgical History / Comment(s): right wrist surgery, carpal tunnel, MRSA S/P wound. left knee surgery, had a miscarrage Past Anesthesia/Blood Transfusion Reactions: No Reported Reaction Smoking Status: Current some day smoker - Past Family History Mother Family Medical History: Cancer, CVA/TIA, Diabetes Mellitus, Myocardial Infarction ([place]), Renal Disease Additional Family Medical History / Comment(s): uterine cancer, artificial valves Father Additional Family Medical History / Comment(s): PAD Brother(s) Family Medical History: Coronary Artery Disease (CAD), Diabetes Mellitus Additional Family Medical History / Comment(s): 2 HEART STENTS, issue with heart valve Sister(s) Additional Family Medical History / Comment(s): psych issues Daughter(s) Family Medical History: No Reported History Son(s) Family Medical History: No Reported History Medications and Allergies Home Medications Medication Instructions Recorded Confirmed Type Apixaban [Eliquis] 5 mg PO BID 02/19/18 04/03/19 History Metoprolol Tartrate 25 mg PO HS 06/10/18 04/03/19 History Allergies Allergy/AdvReac Type Severity Reaction Status Date / Time adhesive Allergy Rash/Hives Verified 04/03/19 20:23 albuterol Allergy Anaphylaxis Verified 04/03/19 20:23 amoxicillin Allergy Anaphylaxis Verified 04/03/19 20:23 ampicillin Allergy Anaphylaxis Verified 04/03/19 20:23 azithromycin [From Zithromax] Allergy Anaphylaxis Verified 04/03/19 20:23 erythromycin base Allergy Anaphylaxis Verified 04/03/19 20:23 latex Allergy Rash/Hives Verified 04/03/19 20:23 morphine Allergy Hallucinati Verified 04/03/19 20:23 ons penicillin V Allergy Anaphylaxis Verified 04/03/19 20:23 Physical Exam Vitals: Vital Signs Temp Pulse Pulse Resp BP BP Pulse Ox 04/04/19 11:53 98.1 F 88 18 129/78 98 04/04/19 07:58 98.3 F 69 18 111/67 97 04/04/19 04:00 99.1 F 76 18 110/74 96 04/04/19 03:58 18 04/04/19 00:00 18 04/03/19 23:48 98.4 F 81 18 110/66 96 04/03/19 20:00 18 04/03/19 19:59 98.2 F 82 19 111/82 96 04/03/19 18:19 97.8 F 84 18 125/76 95 Intake and Output 04/03/19 04/04/19 04/04/19 22:59 06:59 14:59 Other: Voiding Method Toilet # Voids 1 Weight 128.367 kg PHYSICAL EXAMINATION: GENERAL: The patient is alert and oriented x3, not in any acute distress. Well developed, well nourished. HEENT: Pupils are round and equally reacting to light. EOMI. No scleral icterus. No conjunctival pallor. Normocephalic, atraumatic. No pharyngeal erythema. No thyromegaly. CARDIOVASCULAR: S1 and S2 present. No murmurs, rubs, or gallops. PULMONARY: Chest is clear to auscultation, no wheezing or crackles. ABDOMEN: Soft, nontender, nondistended, normoactive bowel sounds. No palpable organomegaly. MUSCULOSKELETAL: No joint swelling or deformity. EXTREMITIES: No cyanosis, clubbing, or pedal edema. NEUROLOGICAL: Gross neurological examination did not reveal any focal deficits. SKIN: No rashes. Results CBC & Chem 7: 04/04/19 00:33 04/04/19 00:33 Labs: Abnormal Lab Results - Last 24 Hours (Table) 04/04/19 04/04/19 04/04/19 Range/Units 00:33 06:33 06:33 Glucose 109 H (74-99) mg/dL C-Reactive Protein 61.5 H (<10.0) mg/L LDL Cholesterol, Calc 108 H (0-99) mg/dL HDL Cholesterol 37 L (40-60) mg/dL Thrombosis Risk Factor Assmnt - Choose All That Apply Each Risk Factor Represents 3 Points: History of DVT/PE Thrombosis Risk Factor Assessment Total Risk Factor Score: 3 Thrombosis Risk Factor Assessment Level: Moderate Risk Assessment and Plan Assessment: Chest pain, atypical. An acute coronary event has been ruled out. 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
--- NOTE | 2019-04-04 16:57 | P.DS ---
Providers Date of admission: 04/03/19 18:19 Expected date of discharge: 04/04/19 Attending physician: Ac Raltiff MD Consults: 04/03/19 18:19 Consult Physician Urgent Consulting Provider: [facility] Consult Reason/Comments: Unstable angina Do you want consulting provider notified?: Yes Primary care physician: [facility] Course: 38-year-old female with past medical history significant for PR bypass multiple pulmonary embolisms and multiple DVTs. Patient is on eliquis. Patient arrived at [place] this morning with chest pain shortness of breath. Patient had a CAT scan at [facility] showed no PE. Patient's initial troponin was negative. They wanted the patient to come down reported be evaluated by cardiology. Patient states she still having some mild chest pain and some shortness of breath. Patient states at no time was she diaphoretic. Patient denies any nausea patient patient had abdominal pain patient denies any headache patient denies numbness weakness. Patient denies any lightheadedness or dizziness. EKG reveals sinus mechanism. CTA chest negative for PE. Laboratory reviewed, WBC 6.6, hemoglobin 12.3, platelets 245, sodium 137, potassium 3.7, creatinine 0.1, cardiac enzymes negative 3, C-reactive protein 61.5, LDL 108. Current cardiac medications include Eliquis 5 mg twice a day and metoprolol 25 mg at bedtime. Most recent echocardiogram obtained January 2019 reveals preserved LV systolic function with ejection fraction 55-60%, septal wall motion delay consistent with prior cardiac surgery. Cardiology saw patient and recommended dobutamine stress echo which was unremarkable; patient was started on colchicine with diagnosis of possible pericarditis and recommended outpatient follow-up with cardiology as an outpatient Plan - Discharge Summary New Discharge Prescriptions: New Aspirin 81 mg PO DAILY chew Colchicine [Colcrys] 0.6 mg PO BID #14 each Atorvastatin [Lipitor] 40 mg PO DAILY #30 tab Doxycycline [Vibramycin] 100 mg PO BID #14 cap No Action Apixaban [Eliquis] 5 mg PO BID Metoprolol Tartrate 25 mg PO HS Discharge Medication List Apixaban [Eliquis] 5 mg PO BID 02/19/18 [History] Metoprolol Tartrate 25 mg PO HS 06/10/18 [History] Aspirin 81 mg PO DAILY chew 04/04/19 [Rx] Atorvastatin [Lipitor] 40 mg PO DAILY #30 tab 04/04/19 [Rx] Colchicine [Colcrys] 0.6 mg PO BID #14 each 04/04/19 [Rx] Doxycycline [Vibramycin] 100 mg PO BID #14 cap 04/04/19 [Rx] Follow up Appointment(s)/Referral(s): Pio Montague MD [STAFF PHYSICIAN] - 2 Weeks Marya Foreman MD [Primary Care Provider] - 1-2 days
--- NOTE | 2019-04-07 10:15 | ECHOS ---
STRESS ECHOCARDIOGRAM INDICATION: Chest pain. AGE: 38 SEX: F HT: 63" WT: 283 PROTOCOL: Dobutamine stress echo STAGE: DURATION OF EXERCISE: HEART RATE REST: 76 BLOOD PRESSURE REST: 160/82 MAXIMUM HEART RATE ACHIEVED: 152 MAXIMUM BLOOD PRESSURE: 214/103 85% MPHR: 155 100% MPHR: 182 METS: STRESS DATA: Heart rate 76, blood pressure is 160/82 mmHg. Baseline EKG showed sinus rhythm. Dobutamine infusion at a dose of 10 mcg/kg per minute was initiated and increased to 40 mcg/kg per minute per protocol. Max heart rate was 152 which is about 83% of maximum predicted heart rate. Maximum blood pressure was 214/103 mmHg. Clinically the patient did not have no symptoms. The EKG did not show any significant ST or T-wave abnormalities concerning for ischemia. ECHOCARDIOGRAM IMAGES: On echocardiogram images from parasternal long axis view, parasternal short axis view, apical 4 chamber and apical 2 chamber view, were obtained as the baseline images, at low dose dobutamine infusion, at peak heart rate as well as on recovery. The echocardiogram images did not show any evidence of wall motion abnormalities concerning for ischemia. CONCLUSION: 1. Normal EKG in response to dobutamine. 2. Normal echocardiogram in response to dobutamine. 3. Essentially normal dobutamine stress echocardiogram for the patient. MMODL / IJN: [id number] /
== END 2019-04-04 17:17 | disposition home or self-care (01) ==
LOC: EC 18:05 → 1SOBS 18:19
PROVIDERS: ADMIT Internal Medicine; ATTEND Internal Medicine
DX: R07.89 Other chest pain (principal); R06.02 Shortness of breath; R53.83 Other fatigue; I25.10 Atherosclerotic heart disease of native coronary artery without angina pectoris; I25.2 Old myocardial infarction; E78.5 Hyperlipidemia, unspecified; F17.200 Nicotine dependence, unspecified, uncomplicated; E66.01 Morbid (severe) obesity due to excess calories; Z68.43 Body mass index [BMI] 50.0-59.9, adult; Z95.1 Presence of aortocoronary bypass graft; Z86.711 Personal history of pulmonary embolism; Z86.718 Personal history of other venous thrombosis and embolism; Z79.01 Long term (current) use of anticoagulants; Z79.899 Other long term (current) drug therapy; Z91.09 Other allergy status, other than to drugs and biological substances; Z88.8 Allergy status to other drugs, medicaments and biological substances; Z88.0 Allergy status to penicillin; Z88.1 Allergy status to other antibiotic agents; Z91.040 Latex allergy status; Z86.14 Personal history of Methicillin resistant Staphylococcus aureus infection; Z98.890 Other specified postprocedural states; Z90.49 Acquired absence of other specified parts of digestive tract; Z86.69 Personal history of other diseases of the nervous system and sense organs; Z80.49 Family history of malignant neoplasm of other genital organs; Z82.3 Family history of stroke; Z83.3 Family history of diabetes mellitus; Z82.49 Family history of ischemic heart disease and other diseases of the circulatory system; Z84.1 Family history of disorders of kidney and ureter; Z81.8 Family history of other mental and behavioral disorders
CPT/HCPCS: 93005 ×2; 93351; 84484 ×2; 99285; 36415; 80061; 80048; 85652; 85025; 86140; 84703; G0378 ×2; S4990 ×2; Q9950; J1250; J0461

== ENCOUNTER 2019-05-12 10:54 | Emergency (ER) | payer BC ==
[2019-05-12 10:59] VITALS: TEMP 97.8
[2019-05-12 12:45] LABS: Basophils % (A) 1 %; Eosinophils # (A) 0.2 k/uL (0-0.7); Eosinophils % (A) 2 %; HCT 39.3 % (34.0-46.0); HGB 13.2 gm/dL (11.4-16.0); Lymphocytes # (A) 2.6 k/uL (1.0-4.8); Lymphocytes % (A) 26 %; MCHC 33.7 g/dL (31.0-37.0); Mean Platelet Volume 7.5; Monocytes # (A) 0.3 k/uL (0-1.0); Monocytes % (A) 3 %; Neutrophils # (A) 6.6 k/uL (1.3-7.7); Neutrophils % (A) 67 %; Platelet Count 291 k/uL (150-450); RBC 4.42 m/uL (3.80-5.40); RDW 13.3 % (11.5-15.5); WBC 9.8 k/uL (3.8-10.6)
[2019-05-12 12:58] LABS: African American GFR (CKD) >90 (>60 ml/min/1.73 sqM); Anion Gap 5 mmol/L; Blood Urea Nitrogen 8 mg/dL (7-17); C Reactive Protein 27.7 mg/L (<10.0); Calcium 9.2 mg/dL (8.4-10.2); Carbon Dioxide 27 mmol/L (22-30); Chloride 107 mmol/L (98-107); Glucose 107 mg/dL (74-99); Non-African American GFR(CKD) >90 (>60 ml/min/1.73 sqM); Potassium 4.2 mmol/L (3.5-5.1); Sodium 139 mmol/L (137-145)
--- NOTE | 2019-05-12 12:58 | ED ---
General Adult HPI - General Chief complaint: Skin/Abscess/Foreign Body Stated complaint: ruptured abcess under arm Time Seen by Provider: 05/12/19 11:19 Source: patient, RN notes reviewed Mode of arrival: ambulatory Limitations: no limitations - History of Present Illness Initial comments: 38-year-old female presents to the emergency department for cyst. She states she has had an abscess under the right armpit for 2 months. States that she has had it drained here 4 times and it does not seem to be improving. States it is draining on its own at home. States she was on one course of doxycycline for this. Denies fevers. States that she called Dr. porter office for a appointment and she was told she cannot get into July so to come to the emergency department to see him through the hospital. Patient has no other complaints at this time including shortness of breath, chest pain, abdominal pain, nausea or vomiting, headache, or visual changes. - Related Data Home Medications Medication Instructions Recorded Confirmed Apixaban [Eliquis] 5 mg PO BID 02/19/18 04/03/19 Metoprolol Tartrate 25 mg PO HS 06/10/18 04/03/19 Previous Rx's Medication Instructions Recorded Aspirin 81 mg PO DAILY chew 04/04/19 Atorvastatin [Lipitor] 40 mg PO DAILY #30 tab 04/04/19 Colchicine [Colcrys] 0.6 mg PO BID #14 each 04/04/19 Doxycycline [Vibramycin] 100 mg PO BID #14 cap 04/04/19 Doxycycline [Vibramycin] 100 mg PO BID 10 Days #20 capsule 05/12/19 Allergies Allergy/AdvReac Type Severity Reaction Status Date / Time adhesive Allergy Rash/Hives Verified 05/12/19 11:00 albuterol Allergy Anaphylaxis Verified 05/12/19 11:00 amoxicillin Allergy Anaphylaxis Verified 05/12/19 11:00 ampicillin Allergy Anaphylaxis Verified 05/12/19 11:00 azithromycin [From Zithromax] Allergy Anaphylaxis Verified 05/12/19 11:00 erythromycin base Allergy Anaphylaxis Verified 05/12/19 11:00 latex Allergy Rash/Hives Verified 05/12/19 11:00 morphine Allergy Hallucinati Verified 05/12/19 11:00 ons penicillin V Allergy Anaphylaxis Verified 05/12/19 11:00 Review of Systems ROS Statement: Those systems with pertinent positive or pertinent negative responses have been documented in the HPI. ROS Other: All systems not noted in ROS Statement are negative. Past Medical History Past Medical History: Coronary Artery Disease (CAD), Chest Pain / Angina, Deep Vein Thrombosis (DVT), Hyperlipidemia, Myocardial Infarction (PR), Pulmonary Embolus (PE) Last Myocardial Infarction Date:: 04/2017 History of Any Multi-Drug Resistant Organisms: MRSA Date of last positivie culture/infection: 2014 MDRO Source:: abscess abdomen Past Surgical History: Section, Cholecystectomy, Coronary Bypass/CABG, Heart Catheterization Additional Past Surgical History / Comment(s): right wrist surgery, carpal tunnel, MRSA S/P wound. left knee surgery, had a miscarrage Past Anesthesia/Blood Transfusion Reactions: No Reported Reaction Past Psychological History: ADD/ADHD Smoking Status: Current some day smoker Past Alcohol Use History: Occasional Past Drug Use History: None Reported - Past Family History Mother Family Medical History: Cancer, CVA/TIA, Diabetes Mellitus, Myocardial Infarction (PR), Renal Disease Additional Family Medical History / Comment(s): uterine cancer, artificial valves Father Additional Family Medical History / Comment(s): PAD Brother(s) Family Medical History: Coronary Artery Disease (CAD), Diabetes Mellitus Additional Family Medical History / Comment(s): 2 HEART STENTS, issue with heart valve Sister(s) Additional Family Medical History / Comment(s): psych issues Daughter(s) Family Medical History: No Reported History Son(s) Family Medical History: No Reported History General Exam Limitations: no limitations General appearance: alert, in no apparent distress Head exam: Present: atraumatic, normocephalic, normal inspection Eye exam: Present: normal appearance, PERRL, EOMI. Absent: scleral icterus, conjunctival injection, periorbital swelling ENT exam: Present: normal exam, mucous membranes moist Neck exam: Present: normal inspection, full ROM. Absent: tenderness, meningismus, lymphadenopathy Respiratory exam: Present: normal lung sounds bilaterally. Absent: respiratory distress, wheezes, rales, rhonchi, stridor Cardiovascular Exam: Present: regular rate, normal rhythm, normal heart sounds. Absent: systolic murmur, diastolic murmur, rubs, gallop, clicks Extremities exam: Present: other (6 cm x 3 cm abscess noted in the right armpit. Slight drainage noted. No cellulitis.) Course Vital Signs 05/12/19 10:56 Temperature 97.8 F Pulse Rate 106 H Respiratory 18 Rate Blood Pressure 143/85 O2 Sat by Pulse 98 Oximetry Medical Decision Making - Medical Decision Making Vitals are stable. Patient is afebrile. She is about 6 x 3 cm abscess in the right axilla. No surrounding cellulitis. Patient states she did have this I&D and went away with exercise and for about a week but came back. Denies fevers. Denies any streaking redness. CBC BMP was unremarkable. CRP 27.7 which is improved. EKG shows a normal sinus rhythm. He did recommend incision and drainage. Patient adamantly refuses this stating she will not have this done again to the ER because it was too painful. I did offer to numb this however she still refuses. It is freely draining at this time. I did offer to call on- call surgeon the patient refuses stating she just wants to leave and would rather follow up with her doctor. She will be restarted on doxycycline. Discussed warm compresses to keep to strain. She will return here if she has any worsening symptoms or constitutional symptoms or fevers. - Lab Data Result diagrams: 05/12/19 12:33 05/12/19 12:33 Lab Results 05/12/19 05/12/19 05/12/19 Range/Units 12:33 12:33 12:33 WBC 9.8 (3.8-10.6) k/uL RBC 4.42 (3.80-5.40) m/uL Hgb 13.2 (11.4-16.0) gm/dL Hct 39.3 (34.0-46.0) % MCV 89.0 (80.0-100.0) fL MCH 30.0 (25.0-35.0) pg MCHC 33.7 (31.0-37.0) g/dL RDW 13.3 (11.5-15.5) % Plt Count 291 (150-450) k/uL Neutrophils % 67 % Lymphocytes % 26 % Monocytes % 3 % Eosinophils % 2 % Basophils % 1 % Neutrophils # 6.6 (1.3-7.7) k/uL Lymphocytes # 2.6 (1.0-4.8) k/uL Monocytes # 0.3 (0-1.0) k/uL Eosinophils # 0.2 (0-0.7) k/uL Basophils # 0.0 (0-0.2) k/uL Sodium 139 (137-145) mmol/L Potassium 4.2 (3.5-5.1) mmol/L Chloride 107 (98-107) mmol/L Carbon Dioxide 27 (22-30) mmol/L Anion Gap 5 mmol/L BUN 8 (7-17) mg/dL Creatinine 0.63 (0.52-1.04) mg/dL Est GFR (CKD-EPI)AfAm >90 (>60 ml/min/1.73 sqM) Est GFR (CKD-EPI)NonAf >90 (>60 ml/min/1.73 sqM) Glucose 107 H (74-99) mg/dL Calcium 9.2 (8.4-10.2) mg/dL C-Reactive Protein 27.7 H (<10.0) mg/L HCG, Qual Not Detected Disposition Clinical Impression: Abscess Disposition: HOME SELF-CARE Condition: Good Instructions (If sedation given, give patient instructions): Abscess Incision and Drainage (ED), Abscess (ED) Additional Instructions: Please take antibiotic as directed. Please keep the area draining by applying warm compresses. Follow-up with surgery and primary care. Return to the emergency department for any worsening symptoms such as fevers or increased size of abscess Prescriptions: Doxycycline [Vibramycin] 100 mg PO BID 10 Days #20 capsule Is patient prescribed a controlled substance at d/c from ED?: No Referrals: Marya Foreman MD [Primary Care Provider] - 1-2 days Time of Disposition: 14:14
[2019-05-12] MEDS ORDERED: KETOROLAC 30 MG/ML 1 ML VIAL IVP STA (13:29)
[2019-05-12] MEDS ORDERED: ACET/COD 300 MG/30 MG STARTER PACK 6 TAB BTL PO STA (14:28)
[2019-05-12 14:29] VITALS: BP 119/82; PULSE 85; RESP 20
== END 2019-05-12 14:27 | disposition home or self-care (01) ==
LOC: EC 10:54
DX: L02.411 Cutaneous abscess of right axilla (principal); I25.119 Atherosclerotic heart disease of native coronary artery with unspecified angina pectoris; I25.2 Old myocardial infarction; F17.200 Nicotine dependence, unspecified, uncomplicated; Z79.01 Long term (current) use of anticoagulants; Z79.899 Other long term (current) drug therapy; Z91.048 Other nonmedicinal substance allergy status; Z88.0 Allergy status to penicillin; Z88.1 Allergy status to other antibiotic agents; Z91.040 Latex allergy status; Z88.5 Allergy status to narcotic agent; Z95.1 Presence of aortocoronary bypass graft; Z86.718 Personal history of other venous thrombosis and embolism; Z86.711 Personal history of pulmonary embolism
CPT/HCPCS: 36415; 93005; 80048; 85025; 86140; 84703; 99283; 96374; J1885

== ENCOUNTER 2019-10-08 20:14 | Emergency (ER) | payer BC, OTHER ==
[2019-10-08 20:23] VITALS: RESP 18
[2019-10-08] MEDS ORDERED: ASPIRIN 81 MG PO STA (20:38)
--- NOTE | 2019-10-08 20:45 | ED ---
Extremity Problem HPI - General Chief complaint: Extremity Problem,Nontraumatic Stated complaint: L Leg Swelling Time Seen by Provider: 10/08/19 20:23 Source: patient Mode of arrival: ambulatory Limitations: no limitations - History of Present Illness Initial comments: 38-year-old female with history of CAD with previous CABG 2018, significant history of DVT/PE-pt is current smoker, patient is supposed to be on eliquis however states she is "terrible at taking the medication" and stopped taking them this week for a dental procedure but hasnt taken the medication in a total of 2 weeks. Patient presents to the ER today for cc of left leg swelling. Denies calf or leg pain. Denies edema of the legs b/l. Patient also admits on ROS to a vague epigastric discomfort ongoing for the past 2-3 days in the upper abdomen, denies severe vickey, chest pressure, jaw pain, arm pain, nausea, vomiting, diarrhea. Denies SOB or pain with deep inspiration. 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 Patient presented to the ER today for cc of left leg swelling concerned for DVT. Denies numbness, tingling, loss of sensation, pallor or coolness of the extremity. - Related Data Home Medications Medication Instructions Recorded Confirmed Apixaban [Eliquis] 5 mg PO BID 02/19/18 10/08/19 Metoprolol Tartrate 25 mg PO BID 06/10/18 10/08/19 Ranitidine HCl [Zantac] 150 mg PO HS PRN 10/08/19 10/08/19 Allergies Allergy/AdvReac Type Severity Reaction Status Date / Time adhesive Allergy Rash/Hives Verified 10/08/19 21:28 albuterol Allergy Anaphylaxis Verified 10/08/19 21:28 amoxicillin Allergy Anaphylaxis Verified 10/08/19 21:28 ampicillin Allergy Anaphylaxis Verified 10/08/19 21:28 azithromycin [From Zithromax] Allergy Anaphylaxis Verified 10/08/19 21:28 erythromycin base Allergy Anaphylaxis Verified 10/08/19 21:28 latex Allergy Rash/Hives Verified 10/08/19 21:28 morphine Allergy Hallucinati Verified 10/08/19 21:28 ons penicillin V Allergy Anaphylaxis Verified 10/08/19 21:28 Review of Systems ROS Statement: Those systems with pertinent positive or pertinent negative responses have been documented in the HPI. ROS Other: All systems not noted in ROS Statement are negative. Past Medical History Past Medical History: Coronary Artery Disease (CAD), Chest Pain / Angina, Deep Vein Thrombosis (DVT), Hyperlipidemia, Myocardial Infarction (DC), Pulmonary Embolus (PE) Last Myocardial Infarction Date:: 04/2017 History of Any Multi-Drug Resistant Organisms: MRSA Date of last positivie culture/infection: 2014 MDRO Source:: abscess abdomen Past Surgical History: Section, Cholecystectomy, Coronary Bypass/CABG, Heart Catheterization Additional Past Surgical History / Comment(s): right wrist surgery, carpal tunnel, MRSA S/P wound. left knee surgery, had a miscarrage Past Anesthesia/Blood Transfusion Reactions: No Reported Reaction Past Psychological History: ADD/ADHD Smoking Status: Current every day smoker Past Alcohol Use History: Occasional Past Drug Use History: None Reported - Past Family History Mother Family Medical History: Cancer, CVA/TIA, Diabetes Mellitus, Myocardial Infarction (DC), Renal Disease Additional Family Medical History / Comment(s): uterine cancer, artificial valves Father Additional Family Medical History / Comment(s): PAD Brother(s) Family Medical History: Coronary Artery Disease (CAD), Diabetes Mellitus Additional Family Medical History / Comment(s): 2 HEART STENTS, issue with heart valve Sister(s) Additional Family Medical History / Comment(s): psych issues Daughter(s) Family Medical History: No Reported History Son(s) Family Medical History: No Reported History General Exam - General Exam Comments Initial Comments: General: The patient is awake and alert, in no distress, and does not appear acutely ill. Eye: =3 mm pupils are equal, round and reactive to light, extra-ocular movements are intact. No nystagmus. There is normal conjunctiva bilaterally. No signs of icterus. Ears, nose, mouth and throat: There are moist mucous membranes and no oral lesions. Neck: The neck is supple, there is no tenderness or JVD. Cardiovascular: There is a regular rate and rhythm. No murmur, rub or gallop is appreciated. Respiratory: Lungs are clear to auscultation, respirations are non-labored, breath sounds are equal. No wheezes, stridor, rales, or rhonchi. Gastrointestinal: Soft, non-distended,mild tenderness to palpation of the epigastric region of the abdomen without masses or organomegaly noted. There is no rebound or guarding present. No CVA tenderness. Bowel sounds are unremarkable. Musculoskeletal: Normal ROM, no tenderness. Strength 5/5. Sensation intact. Radial pulses equal bilaterally 2+. Neurological: A&O x 3. CN II-XII intact grossly, There are no obvious motor or sensory deficits. Coordination appears grossly intact. Speech is normal. Skin: Skin is warm and dry and no rashes or lesions are noted. No pitting edema or leg swelling appreciated on exam. mild pain to palpation of posterior knee. Psychiatric: Cooperative, appropriate mood & affect, normal judgment. Limitations: no limitations Course Vital Signs 10/08/19 10/08/19 20:17 22:51 Temperature 98 F 98.4 F Pulse Rate 91 84 Respiratory 18 18 Rate Blood Pressure 134/82 131/88 O2 Sat by Pulse 99 97 Oximetry Medical Decision Making - Medical Decision Making Dimer (-). US (-) for acute thrombosis, no swelling appreciated. Vague epigastric pain 2-3 days. Pt states she has had on and off for years and has been diagnosed with a hiatal hernia. Denies any significant change denies any substernal chest pain jaw pain arm pain nausea. Patient EKG no acute findings. WIll be discharged with PCP f/u and return for worsening symptoms. Recommended immediately beginning her eliquis again and consulting PCP prior to dental procedure for alternatives such as a reversibel agent temporarily. Dr. Gonzalez attending is agreeable to this care plan and discharge at this time. - Lab Data Result diagrams: 10/08/19 20:42 10/08/19 20:42 Lab Results 10/08/19 10/08/19 10/08/19 Range/Units 20:42 20:42 20:42 WBC 12.0 H (3.8-10.6) k/uL RBC 4.70 (3.80-5.40) m/uL Hgb 13.9 (11.4-16.0) gm/dL Hct 42.8 (34.0-46.0) % MCV 90.9 (80.0-100.0) fL MCH 29.5 (25.0-35.0) pg MCHC 32.5 (31.0-37.0) g/dL RDW 13.6 (11.5-15.5) % Plt Count 260 (150-450) k/uL Neutrophils % 61 % Lymphocytes % 31 % Monocytes % 3 % Eosinophils % 3 % Basophils % 1 % Neutrophils # 7.3 (1.3-7.7) k/uL Lymphocytes # 3.7 (1.0-4.8) k/uL Monocytes # 0.4 (0-1.0) k/uL Eosinophils # 0.4 (0-0.7) k/uL Basophils # 0.1 (0-0.2) k/uL PT 9.4 (9.0-12.0) sec INR 0.9 (<1.2) APTT 22.0 (22.0-30.0) sec D-Dimer 0.42 (<0.60) mg/L FEU Sodium 138 (137-145) mmol/L Potassium 3.9 (3.5-5.1) mmol/L Chloride 103 (98-107) mmol/L Carbon Dioxide 26 (22-30) mmol/L Anion Gap 9 mmol/L BUN 16 (7-17) mg/dL Creatinine 0.73 (0.52-1.04) mg/dL Est GFR (CKD-EPI)AfAm >90 (>60 ml/min/1.73 sqM) Est GFR (CKD-EPI)NonAf >90 (>60 ml/min/1.73 sqM) Glucose 112 H (74-99) mg/dL Calcium 9.9 (8.4-10.2) mg/dL Total Bilirubin 0.2 (0.2-1.3) mg/dL AST 21 (14-36) U/L ALT 16 (4-34) U/L Alkaline Phosphatase 79 (38-126) U/L Troponin I (0.000-0.034) ng/mL Total Protein 7.2 (6.3-8.2) g/dL Albumin 4.4 (3.5-5.0) g/dL Lipase (23-300) U/L 10/08/19 10/08/19 Range/Units 20:42 20:42 WBC (3.8-10.6) k/uL RBC (3.80-5.40) m/uL Hgb (11.4-16.0) gm/dL Hct (34.0-46.0) % MCV (80.0-100.0) fL MCH (25.0-35.0) pg MCHC (31.0-37.0) g/dL RDW (11.5-15.5) % Plt Count (150-450) k/uL Neutrophils % % Lymphocytes % % Monocytes % % Eosinophils % % Basophils % % Neutrophils # (1.3-7.7) k/uL Lymphocytes # (1.0-4.8) k/uL Monocytes # (0-1.0) k/uL Eosinophils # (0-0.7) k/uL Basophils # (0-0.2) k/uL PT (9.0-12.0) sec INR (<1.2) APTT (22.0-30.0) sec D-Dimer (<0.60) mg/L FEU Sodium (137-145) mmol/L Potassium (3.5-5.1) mmol/L Chloride (98-107) mmol/L Carbon Dioxide (22-30) mmol/L Anion Gap mmol/L BUN (7-17) mg/dL Creatinine (0.52-1.04) mg/dL Est GFR (CKD-EPI)AfAm (>60 ml/min/1.73 sqM) Est GFR (CKD-EPI)NonAf (>60 ml/min/1.73 sqM) Glucose (74-99) mg/dL Calcium (8.4-10.2) mg/dL Total Bilirubin (0.2-1.3) mg/dL AST (14-36) U/L ALT (4-34) U/L Alkaline Phosphatase (38-126) U/L Troponin I <0.012 (0.000-0.034) ng/mL Total Protein (6.3-8.2) g/dL Albumin (3.5-5.0) g/dL Lipase 271 (23-300) U/L Disposition Clinical Impression: Left leg swelling, Epigastric pain Disposition: HOME SELF-CARE Condition: Good Instructions (If sedation given, give patient instructions): Leg Edema (ED), Abdominal Pain (ED) Additional Instructions: Please use medication as discussed. Please follow-up with family doctor in the next 2 days. Please return to emergency room if the symptoms increase or worsen or for any other concerns. Is patient prescribed a controlled substance at d/c from ED?: No Referrals: Marya Foreman MD [Primary Care Provider] - 1-2 days Time of Disposition: 21:56
[2019-10-08 20:53] LABS: Basophils # (A) 0.1 k/uL (0-0.2); Basophils % (A) 1 %; Eosinophils # (A) 0.4 k/uL (0-0.7); Eosinophils % (A) 3 %; HCT 42.8 % (34.0-46.0); HGB 13.9 gm/dL (11.4-16.0); Lymphocytes # (A) 3.7 k/uL (1.0-4.8); Lymphocytes % (A) 31 %; MCH 29.5 pg (25.0-35.0); MCHC 32.5 g/dL (31.0-37.0); MCV 90.9 fL (80.0-100.0); Mean Platelet Volume 7.6; Monocytes # (A) 0.4 k/uL (0-1.0); Monocytes % (A) 3 %; Neutrophils # (A) 7.3 k/uL (1.3-7.7); Neutrophils % (A) 61 %; Platelet Count 260 k/uL (150-450); RDW 13.6 % (11.5-15.5)
[2019-10-08 21:06] LABS: ALT 16 U/L (4-34); AST 21 U/L (14-36); African American GFR (CKD) >90 (>60 ml/min/1.73 sqM); Albumin 4.4 g/dL (3.5-5.0); Alkaline Phosphatase 79 U/L (38-126); Anion Gap 9 mmol/L; Blood Urea Nitrogen 16 mg/dL (7-17); Calcium 9.9 mg/dL (8.4-10.2); Carbon Dioxide 26 mmol/L (22-30); Chloride 103 mmol/L (98-107); Glucose 112 mg/dL (74-99); Non-African American GFR(CKD) >90 (>60 ml/min/1.73 sqM); Potassium 3.9 mmol/L (3.5-5.1); Sodium 138 mmol/L (137-145); Total Bilirubin 0.2 mg/dL (0.2-1.3); Total Protein 7.2 g/dL (6.3-8.2)
--- NOTE | 2019-10-08 21:29 | US ---
EXAMINATION TYPE: US venous doppler duplex LE LT DATE OF EXAM: 10/08/2019 9:05 PM COMPARISON: US bilateral venous February 13, 2019 CLINICAL HISTORY: hx of blood clots, some noncompliance with thinner. Swelling and pain x 1 week. Hx chronic popliteal vein clot and PE. Patient is off Eloquis for 14 days before her dental procedure. SIDE PERFORMED: Left TECHNIQUE: The lower extremity deep venous system is examined utilizing real time linear array sonog jose rafael with graded compression, doppler sonography and color-flow sonography. VESSELS IMAGED: External Iliac Vein (EIV) Common Femoral Vein Deep Femoral Vein Greater Saphenous Vein * Femoral Vein Popliteal Vein Small Saphenous Vein * Proximal Calf Veins (* superficial vessels) Limited due to large body habitus. Left Leg: Patient unable to tolerate compression of distal femoral vein segment. There appear to be i nternal echoes suggestive of chronic thrombus within the popliteal vein. Popliteal vein does appear t o compress and to show color but with slight color defect. IMPRESSION: Suboptimal study with suspected partial chronic occlusive thrombus distal superficial fem oral vein. No convincing evidence for new acute DVT.
[2019-10-08 21:35] LABS: D-Dimer 0.42 mg/L FEU (<0.60); INR 0.9 (<1.2); Prothrombin Time 9.4 sec (9.0-12.0)
--- NOTE | 2019-10-08 21:48 | XR ---
EXAMINATION TYPE: XR chest 2V DATE OF EXAM: 10/08/2019 COMPARISON: Chest CT from 07/09/2018. 2 view chest x-ray February 13, 2019. HISTORY: Chest and epigastric pain and discomfort. TECHNIQUE: Frontal and lateral views of the chest are obtained. FINDINGS: Overlying sternal wires are redemonstrated. There is no focal air space opacity, pleural e ffusion, or pneumothorax seen. The cardiac silhouette size remains enlarged. The osseous structure s are intact. IMPRESSION: Cardiomegaly without acute pulmonary process.
[2019-10-08] MEDS ORDERED: ACET/COD 300 MG/30 MG STARTER PACK 6 TAB BTL PO STA (22:02)
[2019-10-08 22:53] VITALS: BP 131/88; PULSE 84; TEMP 98.4
== END 2019-10-08 22:51 | disposition home or self-care (01) ==
LOC: EC 20:14
DX: M79.89 Other specified soft tissue disorders (principal); K44.9 Diaphragmatic hernia without obstruction or gangrene; R10.13 Epigastric pain; I25.119 Atherosclerotic heart disease of native coronary artery with unspecified angina pectoris; I25.2 Old myocardial infarction; F17.200 Nicotine dependence, unspecified, uncomplicated; Z79.899 Other long term (current) drug therapy; Z79.01 Long term (current) use of anticoagulants; Z91.048 Other nonmedicinal substance allergy status; Z88.8 Allergy status to other drugs, medicaments and biological substances; Z88.0 Allergy status to penicillin; Z88.1 Allergy status to other antibiotic agents; Z91.040 Latex allergy status; Z88.5 Allergy status to narcotic agent; Z86.718 Personal history of other venous thrombosis and embolism; Z95.1 Presence of aortocoronary bypass graft; Z86.14 Personal history of Methicillin resistant Staphylococcus aureus infection
CPT/HCPCS: 36415; 71046; 80053; 83690; 84484; 85025; 85379; 85610; 85730; 93005; 99284

== ENCOUNTER 2019-11-22 15:22 | Observation (INO) | payer BC, OTHER ==
[~2019-11-22 15:22] MED LIST: ATROPINE SULFATE 0.1 MG/ML 10ML SYRINGE ONE
--- NOTE | 2019-11-22 16:00 | ED ---
General Adult HPI - General Chief complaint: Chest Pain Stated complaint: chest pain Time Seen by Provider: 11/22/19 15:43 Source: patient Mode of arrival: wheelchair Limitations: no limitations - History of Present Illness Initial comments: Dictation was produced using [employer] dictation software. please excuse any grammatical, word or spelling errors. This patient was cared for during a federal and state declared state of emergency secondary to Covid 19 Chief Complaint: 39-year-old female with past medical history of coronary artery disease, coronary artery bypass grafting sensitive chest pain History of Present Illness: 9-year-old female she has past medical history of pulmonary embolus, myocardial infarction, dyslipidemia, coronary artery bypass graft. Patient states that she's been complaining of left-sided anterior chest pressure that has been ongoing since waking up this morning. Patient describes it as a dull pressure that feels like squeezing since this morning. Patient also complains of some tingling to the left hand and forearm. Patient states the pain does slightly radiate to her back. Denies any fever, chills or night sweats. She states that it doesn't feel worse when she takes deep breath. Does not radiate to the jaw or shoulders. No associated diaphoresis or nausea. Patient does have established care with cardiology. She was urged by her daughter to come to the emergency department for evaluation. She has pain being worse with lying flat. She does report that the pain does feel slightly worse however when she moves. The ROS documented in this emergency department record has been reviewed and confirmed by me. Those systems with pertinent positive or negative responses have been documented in the HPI. All other systems are other negative and/or noncontributory. PHYSICAL EXAM: General Impression: Alert and oriented x3, not in acute distress HEENT: Normocephalic atraumatic, extra-ocular movements intact, pupils equal and reactive to light bilaterally, mucous membranes moist. Cardiovascular: Heart regular rate and rhythm Chest: Able to complete full sentences, no retractions, no tachypnea Abdomen: abdomen soft, non-tender, non-distended, no organomegaly Musculoskeletal: Pulses present and equal in all extremities, no peripheral edema Motor: no focal deficits noted Neurological: CN II-XII grossly intact, no focal motor or sensory deficits noted Skin: Intact with no visualized rashes Psych: Normal affect and mood ED course:39-year-old female presents with chest pain. Patient has multiple risk factors and history of myocardial infarction. She status post CABG. Vital signs upon arrival are within acceptable limits. EKG appears to show no signs of ischemia or infarction. EKG appears to be baseline compared to EKG from 10/08/2019. Patient's pain is atypical with typical features. She is well- appearing at bedside.Chart review was performed. As recent as 04/05/2019 patient had normal dobutamine stress echo. After evaluation obtained. CBC unremarkable. Coag panel is negative. D-dimer is negative. Metabolic panel is negative. Cardiac enzymes negative. Chest x- ray is nonacute. Considering that patient had chest pain with radiation of the left upper extremity is concern for acute aortic pathology. CT angio of the aorta is unremarkable. Given patient's clinical presentation is consistent with atypical chest pain typical features. Patient does have history of myocardia infarction. Patient be admitted for surgical intensive cardiology consultation. Patient's care was accepted by Dr. Mcdaniels of [facility] hospitalist group. EKG interpretation: Ventricular rate 89, normal sinus rhythm,. Interval 148, QRS 86, QTC 447. No AK prolongation, no QTC prolongation, no ST or T-wave changes noted. EKG compared to October 08 2019 showing no changes. Overall, this EKG is unremarkable - Related Data Home Medications Medication Instructions Recorded Confirmed Apixaban [Eliquis] 5 mg PO BID 02/19/18 10/08/19 Metoprolol Tartrate 25 mg PO BID 06/10/18 10/08/19 raNITIdine HCL [Zantac] 150 mg PO HS PRN 10/08/19 10/08/19 Allergies Allergy/AdvReac Type Severity Reaction Status Date / Time adhesive Allergy Rash/Hives Verified 11/22/19 15:37 albuterol Allergy Anaphylaxis Verified 11/22/19 15:37 amoxicillin Allergy Anaphylaxis Verified 11/22/19 15:37 ampicillin Allergy Anaphylaxis Verified 11/22/19 15:37 azithromycin [From Zithromax] Allergy Anaphylaxis Verified 11/22/19 15:37 erythromycin base Allergy Anaphylaxis Verified 11/22/19 15:37 latex Allergy Rash/Hives Verified 11/22/19 15:37 morphine Allergy Hallucinati Verified 11/22/19 15:37 ons penicillin V Allergy Anaphylaxis Verified 11/22/19 15:37 Review of Systems ROS Statement: Those systems with pertinent positive or pertinent negative responses have been documented in the HPI. ROS Other: All systems not noted in ROS Statement are negative. Past Medical History Past Medical History: Coronary Artery Disease (CAD), Chest Pain / Angina, Deep Vein Thrombosis (DVT), Hyperlipidemia, Myocardial Infarction ([place]), Pulmonary Embolus ([place]) Last Myocardial Infarction Date:: 04/2017 History of Any Multi-Drug Resistant Organisms: MRSA Date of last positivie culture/infection: 2014 MDRO Source:: abscess abdomen Past Surgical History: Section, Cholecystectomy, Coronary Bypass/CABG, Heart Catheterization Additional Past Surgical History / Comment(s): right wrist surgery, carpal tunnel, MRSA S/P wound. left knee surgery, had a miscarrage Past Anesthesia/Blood Transfusion Reactions: No Reported Reaction Past Psychological History: ADD/ADHD Smoking Status: Current every day smoker Past Alcohol Use History: None Reported, Occasional Past Drug Use History: None Reported - Past Family History Mother Family Medical History: Cancer, CVA/TIA, Diabetes Mellitus, Myocardial Infarction ([place]), Renal Disease Additional Family Medical History / Comment(s): uterine cancer, artificial valves Father Additional Family Medical History / Comment(s): PAD Brother(s) Family Medical History: Coronary Artery Disease (CAD), Diabetes Mellitus Additional Family Medical History / Comment(s): 2 HEART STENTS, issue with heart valve Sister(s) Additional Family Medical History / Comment(s): psych issues Daughter(s) Family Medical History: No Reported History Son(s) Family Medical History: No Reported History General Exam Limitations: no limitations Course Vital Signs 11/22/19 11/22/19 11/22/19 15:38 16:15 17:22 Temperature 98.3 F Pulse Rate 88 68 Respiratory 18 16 18 Rate Blood Pressure 121/71 124/78 O2 Sat by Pulse 99 99 Oximetry Medical Decision Making - Lab Data Result diagrams: 11/22/19 16:30 11/22/19 16:30 Lab Results 11/22/19 11/22/19 11/22/19 Range/Units 16:20 16:30 16:30 WBC 9.2 (3.8-10.6) k/uL RBC 5.29 (3.80-5.40) m/uL Hgb 15.3 (11.4-16.0) gm/dL Hct 47.6 H (34.0-46.0) % MCV 90.0 (80.0-100.0) fL MCH 28.9 (25.0-35.0) pg MCHC 32.1 (31.0-37.0) g/dL RDW 13.3 (11.5-15.5) % Plt Count 321 (150-450) k/uL Neutrophils % 59 % Lymphocytes % 33 % Monocytes % 3 % Eosinophils % 3 % Basophils % 1 % Neutrophils # 5.4 (1.3-7.7) k/uL Lymphocytes # 3.1 (1.0-4.8) k/uL Monocytes # 0.3 (0-1.0) k/uL Eosinophils # 0.3 (0-0.7) k/uL Basophils # 0.1 (0-0.2) k/uL PT 9.5 (9.0-12.0) sec INR 0.9 (<1.2) APTT 23.3 (22.0-30.0) sec D-Dimer 0.35 (<0.60) mg/L FEU Sodium (137-145) mmol/L Potassium (3.5-5.1) mmol/L Chloride (98-107) mmol/L Carbon Dioxide (22-30) mmol/L Anion Gap mmol/L BUN (7-17) mg/dL Creatinine (0.52-1.04) mg/dL Est GFR (CKD-EPI)AfAm (>60 ml/min/1.73 sqM) Est GFR (CKD-EPI)NonAf (>60 ml/min/1.73 sqM) Glucose (74-99) mg/dL Plasma Lactic Acid Bartolome (0.7-2.0) mmol/L Calcium (8.4-10.2) mg/dL Magnesium (1.6-2.3) mg/dL Troponin I (0.000-0.034) ng/mL NT-Pro-B Natriuret Pep pg/mL Urine Opiates Screen Detected H (NotDetected) Ur Oxycodone Screen Not Detected (NotDetected) Urine Methadone Screen Not Detected (NotDetected) Ur Propoxyphene Screen Not Detected (NotDetected) Ur Barbiturates Screen Not Detected (NotDetected) U Tricyclic Antidepress Not Detected (NotDetected) Ur Phencyclidine Scrn Not Detected (NotDetected) Ur Amphetamines Screen Not Detected (NotDetected) U Methamphetamines Scrn Not Detected (NotDetected) U Benzodiazepines Scrn Not Detected (NotDetected) Urine Cocaine Screen Not Detected (NotDetected) U Marijuana (THC) Screen Not Detected (NotDetected) 11/22/19 11/22/19 11/22/19 Range/Units 16:30 16:30 16:30 WBC (3.8-10.6) k/uL RBC (3.80-5.40) m/uL Hgb (11.4-16.0) gm/dL Hct (34.0-46.0) % MCV (80.0-100.0) fL MCH (25.0-35.0) pg MCHC (31.0-37.0) g/dL RDW (11.5-15.5) % Plt Count (150-450) k/uL Neutrophils % % Lymphocytes % % Monocytes % % Eosinophils % % Basophils % % Neutrophils # (1.3-7.7) k/uL Lymphocytes # (1.0-4.8) k/uL Monocytes # (0-1.0) k/uL Eosinophils # (0-0.7) k/uL Basophils # (0-0.2) k/uL PT (9.0-12.0) sec INR (<1.2) APTT (22.0-30.0) sec D-Dimer (<0.60) mg/L FEU Sodium 137 (137-145) mmol/L Potassium 4.3 (3.5-5.1) mmol/L Chloride 105 (98-107) mmol/L Carbon Dioxide 23 (22-30) mmol/L Anion Gap 9 mmol/L BUN 10 (7-17) mg/dL Creatinine 0.68 (0.52-1.04) mg/dL Est GFR (CKD-EPI)AfAm >90 (>60 ml/min/1.73 sqM) Est GFR (CKD-EPI)NonAf >90 (>60 ml/min/1.73 sqM) Glucose 103 H (74-99) mg/dL Plasma Lactic Acid Bartolome 1.0 (0.7-2.0) mmol/L Calcium 9.7 (8.4-10.2) mg/dL Magnesium 1.9 (1.6-2.3) mg/dL Troponin I <0.012 (0.000-0.034) ng/mL NT-Pro-B Natriuret Pep pg/mL Urine Opiates Screen (NotDetected) Ur Oxycodone Screen (NotDetected) Urine Methadone Screen (NotDetected) Ur Propoxyphene Screen (NotDetected) Ur Barbiturates Screen (NotDetected) U Tricyclic Antidepress (NotDetected) Ur Phencyclidine Scrn (NotDetected) Ur Amphetamines Screen (NotDetected) U Methamphetamines Scrn (NotDetected) U Benzodiazepines Scrn (NotDetected) Urine Cocaine Screen (NotDetected) U Marijuana (THC) Screen (NotDetected) 11/22/19 Range/Units 16:30 WBC (3.8-10.6) k/uL RBC (3.80-5.40) m/uL Hgb (11.4-16.0) gm/dL Hct (34.0-46.0) % MCV (80.0-100.0) fL MCH (25.0-35.0) pg MCHC (31.0-37.0) g/dL RDW (11.5-15.5) % Plt Count (150-450) k/uL Neutrophils % % Lymphocytes % % Monocytes % % Eosinophils % % Basophils % % Neutrophils # (1.3-7.7) k/uL Lymphocytes # (1.0-4.8) k/uL Monocytes # (0-1.0) k/uL Eosinophils # (0-0.7) k/uL Basophils # (0-0.2) k/uL PT (9.0-12.0) sec INR (<1.2) APTT (22.0-30.0) sec D-Dimer (<0.60) mg/L FEU Sodium (137-145) mmol/L Potassium (3.5-5.1) mmol/L Chloride (98-107) mmol/L Carbon Dioxide (22-30) mmol/L Anion Gap mmol/L BUN (7-17) mg/dL Creatinine (0.52-1.04) mg/dL Est GFR (CKD-EPI)AfAm (>60 ml/min/1.73 sqM) Est GFR (CKD-EPI)NonAf (>60 ml/min/1.73 sqM) Glucose (74-99) mg/dL Plasma Lactic Acid Bartolome (0.7-2.0) mmol/L Calcium (8.4-10.2) mg/dL Magnesium (1.6-2.3) mg/dL Troponin I (0.000-0.034) ng/mL NT-Pro-B Natriuret Pep 66 pg/mL Urine Opiates Screen (NotDetected) Ur Oxycodone Screen (NotDetected) Urine Methadone Screen (NotDetected) Ur Propoxyphene Screen (NotDetected) Ur Barbiturates Screen (NotDetected) U Tricyclic Antidepress (NotDetected) Ur Phencyclidine Scrn (NotDetected) Ur Amphetamines Screen (NotDetected) U Methamphetamines Scrn (NotDetected) U Benzodiazepines Scrn (NotDetected) Urine Cocaine Screen (NotDetected) U Marijuana (THC) Screen (NotDetected) Disposition Clinical Impression: Chest pain Disposition: ADMITTED IP TO THIS [facility] Condition: Fair Referrals: Marya Foreman MD [Primary Care Provider] - 1-2 days Decision Time: 18:10
[2019-11-22 16:37] LABS: Amphetamine Screen,Urine Not Detected (NotDetected); Barbiturate Screen,Urine Not Detected (NotDetected); Benzodiazepines Screen,Urine Not Detected (NotDetected); Cocaine Screen,Urine Not Detected (NotDetected); Methadone Screen, Urine Not Detected (NotDetected); Opiate Screen,Urine Detected (NotDetected); Oxycodone Screen, Urine Not Detected (NotDetected); Phencyclidine Screen,Urine Not Detected (NotDetected); Tricyclic Antidepressant,Urine Not Detected (NotDetected); Urn Cannabinoid Scrn Not Detected (NotDetected)
[2019-11-22 16:39] LABS: Basophils # (A) 0.1 k/uL (0-0.2); Basophils % (A) 1 %; Eosinophils # (A) 0.3 k/uL (0-0.7); Eosinophils % (A) 3 %; HCT 47.6 % (34.0-46.0); HGB 15.3 gm/dL (11.4-16.0); Lymphocytes # (A) 3.1 k/uL (1.0-4.8); Lymphocytes % (A) 33 %; MCH 28.9 pg (25.0-35.0); MCHC 32.1 g/dL (31.0-37.0); Mean Platelet Volume 7.2; Monocytes # (A) 0.3 k/uL (0-1.0); Monocytes % (A) 3 %; Neutrophils # (A) 5.4 k/uL (1.3-7.7); Neutrophils % (A) 59 %; Platelet Count 321 k/uL (150-450); RBC 5.29 m/uL (3.80-5.40); RDW 13.3 % (11.5-15.5); WBC 9.2 k/uL (3.8-10.6)
[2019-11-22 16:49] LABS: African American GFR (CKD) >90 (>60 ml/min/1.73 sqM); Anion Gap 9 mmol/L; Blood Urea Nitrogen 10 mg/dL (7-17); Calcium 9.7 mg/dL (8.4-10.2); Carbon Dioxide 23 mmol/L (22-30); Chloride 105 mmol/L (98-107); Glucose 103 mg/dL (74-99); Magnesium 1.9 mg/dL (1.6-2.3); Non-African American GFR(CKD) >90 (>60 ml/min/1.73 sqM); Potassium 4.3 mmol/L (3.5-5.1); Sodium 137 mmol/L (137-145)
[2019-11-22 17:00] LABS: D-Dimer 0.35 mg/L FEU (<0.60); INR 0.9 (<1.2); Partial Thromboplastin Time 23.3 sec (22.0-30.0); Prothrombin Time 9.5 sec (9.0-12.0)
--- NOTE | 2019-11-22 17:05 | XR ---
EXAMINATION TYPE: XR chest 2V DATE OF EXAM: 11/22/2019 COMPARISON: 10/08/2019 HISTORY: Epigastric pain TECHNIQUE: 2 views FINDINGS: Heart and mediastinum are normal. Lungs are clear. Diaphragm is normal. There are sternal w ires. Bony thorax is intact. There is no pleural effusion. IMPRESSION: No active cardiopulmonary disease. Normal heart. No change.
--- NOTE | 2019-11-22 18:07 | CT ---
EXAMINATION TYPE: CT angio thor/abd pel aorta DATE OF EXAM: 11/22/2019 COMPARISON: 02/19/2018 HISTORY: Chest pain, history of CABG. CT DLP: 2975.1 mGycm Automated exposure control for dose reduction was used. CONTRAST: Performed without and with IV Contrast, patient injected with 100ml mL of Isovue 370. Images were obtained from the thoracic inlet to the floor the pelvis without and subsequently with IV contrast. There are 3-D post processed images. The lungs are clear of consolidation. There is minimal subsegmental atelectasis at the lung bases. He art size is normal. There is no pericardial effusion. There is no mediastinal adenopathy. There are n o hilar masses. Thoracic aorta is intact. There is no aneurysm or dissection. I see no filling defect s in the pulmonary arteries. Liver spleen pancreas appear normal. There are clips from cholecystectomy. Stomach appears intact. Kidneys show satisfactory contrast opacification. There is no hydronephrosis. There is no adrenal mas s. Ureters are not dilated. Bladder distends smoothly. There is no inguinal hernia. Uterus is antever nannette. There is no pelvic mass. There is no free fluid in the pelvis. Appendix is posterior and appears normal. There is no mesenteric edema. There is no ascites or free air. There is no bowel obstruction . Abdominal aorta has normal size and contour. There is patency of the celiac artery and superior mesen teric artery. There is bilateral wide patency of the renal arteries. There is bilateral arterial flow in the iliac and femoral arteries. There are sternal wires. Thoracic and lumbar spine appear intact. Bony pelvis is intact. IMPRESSION: Negative CT angiogram of the chest abdomen pelvis. No adverse change compared to old exam.
[2019-11-22] MEDS ORDERED: ASPIRIN 81 MG PO STA (18:11)
[2019-11-22] MEDS ORDERED: NITROGLYCERIN SL TABS 0.4 MG TAB SUBLINGUAL PRN (18:11)
[2019-11-22] MEDS ORDERED: HYDROcodone/APAP 5-325MG 1 EACH TAB PO PRN (20:43)
[2019-11-22] MEDS: HYDROmorphone 0.5 MG/0.5 ML SYRINGE IVP PRN (21:11)
[2019-11-22] MEDS ORDERED: ALPRAZolam 0.25 MG TAB PO PRN (22:37)
[2019-11-22] MEDS ORDERED: TEMAZEPAM 15 MG CAP PO PRN (23:04)
[2019-11-22] MEDS ORDERED: ACETAMINOPHEN TAB 500 MG TAB PO PRN (23:04)
[2019-11-22] MEDS: PANTOPRAZOLE 40 MG/10 ML VIAL IVP SCH (23:19)
[2019-11-22] MEDS: NICOTINE 14MG/24HR PATCH TRANSDERM SCH (23:19)
[2019-11-23 04:29] LABS: Basophils # (A) 0.1 k/uL (0-0.2); Basophils % (A) 1 %; Eosinophils # (A) 0.3 k/uL (0-0.7); Eosinophils % (A) 3 %; HCT 42.8 % (34.0-46.0); HGB 13.7 gm/dL (11.4-16.0); Lymphocytes # (A) 2.7 k/uL (1.0-4.8); Lymphocytes % (A) 37 %; MCV 90.6 fL (80.0-100.0); Mean Platelet Volume 7.1; Monocytes # (A) 0.4 k/uL (0-1.0); Monocytes % (A) 5 %; Neutrophils # (A) 3.9 k/uL (1.3-7.7); Neutrophils % (A) 53 %; Platelet Count 263 k/uL (150-450); RBC 4.72 m/uL (3.80-5.40); RDW 13.5 % (11.5-15.5); WBC 7.3 k/uL (3.8-10.6)
[2019-11-23 04:38] LABS: African American GFR (CKD) >90 (>60 ml/min/1.73 sqM); Anion Gap 5 mmol/L; Blood Urea Nitrogen 12 mg/dL (7-17); Calcium 9.2 mg/dL (8.4-10.2); Carbon Dioxide 27 mmol/L (22-30); Chloride 106 mmol/L (98-107); Cholesterol 186 mg/dL (<200); Glucose 110 mg/dL (74-99); HDL Cholesterol 36 mg/dL (40-60); LDL Cholesterol,Calculated 94 mg/dL (0-99); Non-African American GFR(CKD) >90 (>60 ml/min/1.73 sqM); Potassium 4.3 mmol/L (3.5-5.1); Sodium 138 mmol/L (137-145); Triglycerides 279 mg/dL (<150)
--- NOTE | 2019-11-23 06:45 | HP ---
HISTORY AND PHYSICAL DATE OF SERVICE: 08/22/2019 CHIEF COMPLAINT: Chest pain. HISTORY OF PRESENT ILLNESS: This 39-year-old woman with a past medical history of multiple medical problems including CAD, history of DVT, history of myocardial infarction, pulmonary embolism, history of MRSA, history of CAD/CABG, ADD/ADHD, being followed by Dr. Foreman in the outpatient setting was complaining of chest pain. Initially the patient had pain under the left breast after waking up this morning and this is pressure-like squeezing, some associated tingling of the left hand was reported and the pain was also slightly radiating to the back. Subsequently, the patient had pain radiating to the front of the chest in the epigastric area and lower part of the chest also. The patient was admitted for further evaluation and treatment. Initial troponins are negative. The EKG showed diffuse ST-T changes. The patient also had a thoracic aortic CT scan which was negative. There is no history of fever, rigors. No history of headache, loss of consciousness, seizures. PAST MEDICAL HISTORY: CAD, DVT, myocardial infarction, pulmonary embolism, history of PVD. MEDICATIONS ARE: 1. Metoprolol 25 mg b.i.d. 2. Eliquis 5 mg b.i.d. ALLERGIES: ADHESIVES, ALBUTEROL, AMOXICILLIN, AMPICILLIN, ZITHROMAX, ERYTHROMYCIN, LATEX, AND THE MORPHINE. FAMILY HISTORY: History of kidney disease, myocardial infarction, diabetes, cancer. SOCIAL HISTORY: History of smoking. No history of alcohol intake. REVIEW OF SYSTEMS: ENT No history of diminished hearing or vision. CARDIOVASCULAR As mentioned earlier. RESPIRATORY As mentioned earlier. GI As mentioned earlier. No dysuria or hematuria. NERVOUS No numbness or weakness. ALLERGY/IMMUNOLOGY No asthma or hayfever. MUSCULOSKELETAL As mentioned earlier. HEMATOLOGY/ONCOLOGY Negative. ENDOCRINE No history of diabetes or hypothyroidism. CONSTITUTIONAL As mentioned earlier. DERMATOLOGY Negative. RHEUMATOLOGY Negative, PSYCHIATRY As mentioned earlier PHYSICAL EXAMINATION: Alert and oriented x3. Pulse 84, blood pressure ( ), respiration 18, temp is 97.9, pulse ox 99% on room air. HEENT: Conjunctivae normal. Oral mucosa moist. NECK: No jugular venous distention. No lymph node enlargement. CARDIOVASCULAR: S1, S2, muffled. No S3, no S4, RESPIRATORY: Diminished breath sounds at the bases. No rhonchi, no crackles. ABDOMEN: Soft, nontender. No mass palpable. LEGS: No edema, no swelling. NERVOUS SYSTEM: Higher functions mentioned earlier. Moves all four limbs. No focal motor or sensory deficits. LYMPHATICS: No lymph node in neck or axilla. SKIN: No rash. JOINTS: No active deforming arthropathy. LABS: CBC within normal. Sodium 137. Troponin noted. X-ray and EKG noted. ASSESSMENT: 1. Chest pain, possible unstable angina. 2. History of coronary artery disease, coronary artery bypass graft. 3. History of deep venous thrombosis. 4. History of pulmonary embolism. 5. History of hyperlipidemia. 6. History of ongoing nicotine dependence. 7. History of MRSA. 8. History of cholecystectomy. 9. History attention deficit disorder, attention deficit hyperactivity disorder. 10.Obesity with body mass index 51.5. RECOMMENDATIONS AND DISCUSSION: In this 39-year-old woman who presented with multiple complex medical issues, we will monitor the patient closely, resume the home medications, angina protocol, cardiology consult to rule out myocardial infarction. Guarded prognosis because of multiple complex medical issues and further recommendations to follow. See orders for further details. We will initiate proton pump inhibitors also. MMODL / IJN: [id number] /
[2019-11-23] MEDS ORDERED: ASPIRIN 325 MG TAB PO SCH (09:00)
[2019-11-23] MEDS ORDERED: APIXABAN 5 MG TAB PO SCH (09:00)
[2019-11-23] MEDS: NICOTINE 14MG/24HR PATCH TRANSDERM SCH (09:31)
[2019-11-23] MEDS: PANTOPRAZOLE 40 MG/10 ML VIAL IVP SCH (09:31)
[2019-11-23] MEDS: METOPROLOL TARTRATE 25 MG TAB PO SCH ×2 (09:31→21:13)
--- NOTE | 2019-11-23 10:48 | CONS ---
CONSULTATION Inge is a 39-year-old lady with history of coronary artery disease status post CABG, history of DVT, who presented to the hospital complaining of chest pain. She describes it as a precordial chest pressure that did not radiate to neck, arm or back. It is unrelated to exertion and there was no diaphoresis. She describes it as a pressure- like sensation moderate intensity in the precordial area. She came in with these symptoms and the symptoms were going on for 1-2 days, but at the time of my evaluation, she appears comfortable at rest and is free of symptoms. The patient has known coronary artery disease and underwent bypass surgery in the setting of dissection of an LAD following angioplasty. She had a negative stress test about 6-7 months ago. On this admission, cardiac enzymes are negative. EKG does not reveal acute ischemic changes. PAST MEDICAL HISTORY: Significant for DVT, CAD status post coronary artery bypass grafting. MEDICATIONS: Include metoprolol 25 b.i.d., Eliquis 5 b.i.d. ALLERGIES: MULTIPLE DRUG ALLERGIES INCLUDING AMOXICILLIN. ZITHROMAX, LATEX, PENICILLIN, AND MORPHINE. FAMILY HISTORY: Is negative for premature coronary artery disease. SOCIAL HISTORY: Negative for current smoking, EtOH abuse, or drug abuse. REVIEW OF SYSTEMS: HEENT is unremarkable. Cardiac as described above. Respiratory as described above. GI negative. GENITOURINARY negative. ALLERGY/IMMUNOLOGY: Negative. Skin negative. Musculoskeletal negative. Endocrine negative. Derm negative. CONSTITUTIONAL: Negative. Oncological: Negative. PHYSICAL EXAMINATION: On exam comfortable at rest. Vital signs are stable. O2 saturation is 95% on room air. There is no jugular venous distention. Carotid upstroke is normal. There is no bruit. Chest exam reveals good air entry bilaterally. Heart exam reveals first and second heart sounds. No gallop. No murmur. No rub. Abdomen is soft, nontender. Exam of extremities did not reveal any edema. Peripheral pulses are felt. 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 LABORATORY DATA: Lab show a hemoglobin of 13.7, platelet count is 260. Potassium is 4.3, creatinine is 0.7. Troponins are negative. BNP is normal. ASSESSMENT: 1. Precordial chest pain in a patient with known coronary artery disease, status post prior bypass surgery. 2. History of deep vein thrombosis. The patient is currently on Eliquis. We will stop it. Start the patient on IV heparin and talk to Dr. Scarlett Montague about doing a cardiac catheterization given the 2nd hospitalization with chest pain within the last 6 months and a negative stress test 6 months ago. MMMERARIL / IJN: [id number] /
[2019-11-23] MEDS ORDERED: HEPARIN SODIUM,PORCINE 5,000 UNIT/ML 1 ML VIAL IV PRN (11:27)
[2019-11-23] MEDS ORDERED: HEPARIN SODIUM,PORCINE 5,000 UNIT/ML 1 ML VIAL IV ONE (11:27)
[2019-11-23] MEDS ORDERED: HEPARIN SOD,PORK IN 0.45% NACL 25,000 UNIT in 0.45% NACL 1 250ML.BAG IV SCH (12:00)
[2019-11-23] MEDS: HYDROmorphone 0.5 MG/0.5 ML SYRINGE IVP PRN (14:53)
--- NOTE | 2019-11-23 15:03 | PN ---
PROGRESS NOTE DATE OF SERVICE: 11/23/2019 This 39-year-old woman was admitted with chest pain. She is being closely monitored. Cardiology is planning cardiac catheterization tomorrow. No chest pain. No palpitations. No fever. PHYSICAL EXAMINATION: GENERAL: Patient is alert and oriented times three. VITAL SIGNS: Pulse 69, blood pressure 150/74, respirations 16, temperature 97.8, pulse ox 93% on room air HEENT: Conjunctivae normal. NECK: No jugular venous distention. RESPIRATORY: Breath sounds diminished at the bases. No rhonchi, no crackles. HEART: S1 and S2, muffled. ABDOMEN: Soft, no tenderness. Obese. EXTREMITIES: No edema, no swelling. NERVOUS: No focal deficits. LABS: Glucose 110. Triglycerides 279. ASSESSMENT: 1. Chest pain, possible unstable angina. 2. History of coronary artery disease with coronary artery bypass graft. 3. History of deep vein thrombosis. 4. History of pulmonary embolus. 5. Hyperlipidemia and hypertriglyceridemia. 6. History of ongoing nicotine dependence. 7. History of Methicillin resistant Staphylococcus aureus. 8. History of cholecystectomy. 9. History of attention deficit hyperactivity disorder. 10.History of obesity with body mass index of 51.5. RECOMMENDATIONS AND DISCUSSION: Recommend to continue current medical management, monitoring and continue symptomatic treatment. Otherwise continue with antiplatelet agents. Continue to closely monitor IV heparin. Closely follow with Cardiology for possible cardiac catheterization. Further recommendations to follow. MADAY / HERBERTN: [id number] /
[2019-11-23] MEDS ORDERED: diphenhydrAMINE 50 MG/ML 1 ML VIAL IVP PRN (17:33)
[2019-11-23] MEDS: PANTOPRAZOLE 40 MG TABLET PO SCH (21:14)
[2019-11-24 02:26] LABS: Basophils % (A) 1 %; Eosinophils # (A) 0.2 k/uL (0-0.7); Eosinophils % (A) 3 %; HGB 13.6 gm/dL (11.4-16.0); Lymphocytes # (A) 3.6 k/uL (1.0-4.8); Lymphocytes % (A) 43 %; MCH 29.6 pg (25.0-35.0); MCHC 32.4 g/dL (31.0-37.0); MCV 91.5 fL (80.0-100.0); Mean Platelet Volume 7.3; Monocytes # (A) 0.3 k/uL (0-1.0); Monocytes % (A) 4 %; Neutrophils # (A) 4.1 k/uL (1.3-7.7); Neutrophils % (A) 49 %; Platelet Count 260 k/uL (150-450); RBC 4.59 m/uL (3.80-5.40); RDW 13.3 % (11.5-15.5); WBC 8.3 k/uL (3.8-10.6)
[2019-11-24 03:02] LABS: African American GFR (CKD) >90 (>60 ml/min/1.73 sqM); Anion Gap 6 mmol/L; Blood Urea Nitrogen 15 mg/dL (7-17); Calcium 8.8 mg/dL (8.4-10.2); Carbon Dioxide 23 mmol/L (22-30); Chloride 106 mmol/L (98-107); Glucose 117 mg/dL (74-99); Non-African American GFR(CKD) >90 (>60 ml/min/1.73 sqM); Potassium 3.9 mmol/L (3.5-5.1); Sodium 135 mmol/L (137-145)
[2019-11-24] MEDS: HYDROmorphone 0.5 MG/0.5 ML SYRINGE IVP PRN (03:30)
[2019-11-24 09:01] VITALS: RESP 16; TEMP 97.7
[2019-11-24] MEDS: PANTOPRAZOLE 40 MG TABLET PO SCH (09:06)
[2019-11-24] MEDS ORDERED: DOBUTamine DRIP for NUC MED 500 MG in DEXTROSE/WATER 1 250ML.BAG IV ONE (09:07)
[2019-11-24] MEDS: METOPROLOL TARTRATE 25 MG TAB PO SCH (09:20)
[2019-11-24] MEDS ORDERED: ATORVASTATIN 40 MG TAB PO SCH (10:30)
--- NOTE | 2019-11-24 10:52 | P.PN ---
Subjective This is a pleasant 39-year-old female past medical history significant for coronary artery disease with history of LAD dissection and single bypass graft, history of DVT on long-term anticoagulation, dyslipidemia, chronic nicotine dependence and morbid obesity. She underwent bypass surgery May 2017. Initially she underwent heart catheterization at [facility] revealing a lesion in the mid LAD with evidence of intrinsic dissection, subsequently thereafter she went back to the hospital with significant rise in her troponin and was found to have a complete total occlusion of the LAD requiring KELLY to LAD. Postprocedure she developed DVT and PE with RV enlargement. She follows in the office with Dr. Montague. She is seen and examined resting comfortably in no acute distress. She continues to have chest discomfort that she states has been constant. Her discomfort is reproducible on light palpation in the midsternal region. 105/65 heart rate 65 afebrile maintaining oxygen saturation on room air. Laboratory data reviewed, CBC unremarkable, sodium 135, potassium 3.9, creatinine 0.64, LDL 94 and HDL 36. Currently maintained on aspirin 81 mg daily and metoprolol 25 mg twice a day. Eliquis has been held and heparin infusion ongoing. GENERAL: Well-appearing, well-nourished and in no acute distress. NECK: Supple without JVD or thyromegaly. LUNGS: Breath sounds clear to auscultation bilaterally. Respiration equal and unlabored. No wheezes, rales or rhonchi. HEART: Regular rate and rhythm without murmurs, rubs or gallops. S1 and S2 heard. Reproducible pain in the anterior midsternal region. EXTREMITIES: Normal range of motion, no edema. No clubbing or cyanosis. Peripheral pulses intact. ASSESSMENT Chest pain, atypical and reproducible. An acute event has been ruled out. Coronary artery disease s/p bypass grafting 05/2017 History of PE and DVT maintained on eliquis Dyslipidemia Chronic nicotine dependence PLAN Initiate atorvastatin 40 mg daily. Decrease aspirin to 81 mg daily. Discontinue heparin infusion and resume eliquis tonight at 5 mg. Recommend repeating her stress test to assess for stress induced ischemia. If normal she is stable to be discharged and follow up with Dr. Montague in the office in 2 weeks. Smoking cessation recommended. Nurse Practitioner note has been reviewed, I agree with a documented findings and plan of care. Patient was seen and examined. Objective - Vital Signs Vital signs: Vital Signs Temp 97.7 F 08/03/20 08:57 Pulse 65 11/24/19 08:57 Resp 16 11/24/19 08:57 BP 105/65 11/24/19 08:57 Pulse Ox 96 11/24/19 08:57 Intake & Output 11/23/19 11/24/19 11/24/19 18:59 06:59 18:59 Intake Total 468.886 Balance 468.886 Intake: Intake, IV Titration 68.886 Amount Heparin Sod,Pork in 0.45% 68.886 NaCl 25,000 unit In 0.45 % NaCl 1 250ml.bag @ 7.6 UNITS/KG/HR 10.032 mls/hr IV .Q24H BERRY Rx#: [id number] Oral 400 Other: Voiding Method Toilet Toilet Toilet # Voids 3 1 2 - Labs CBC & Chem 7: 11/24/19 02:00 11/24/19 02:00 Labs: Abnormal Lab Results - Last 24 Hours (Table) 11/23/19 11/24/19 11/24/19 Range/Units 17:45 02:00 02:00 APTT 37.0 H 49.9 H (22.0-30.0) sec Sodium 135 L (137-145) mmol/L Glucose 117 H (74-99) mg/dL
[2019-11-24] MEDS: NICOTINE 14MG/24HR PATCH TRANSDERM SCH (12:20)
--- NOTE | 2019-11-24 15:00 | ECHOF ---
Referral Reason:chest pain MEASUREMENTS -------- HEIGHT: 160.0 cm WEIGHT: 132.0 kg BP: 190/71 IVSd: 1.3 cm (0.6 - 1.1) LVIDd: 4.8 cm (3.9 - 5.3) LVPWd: 1.5 cm (0.6 - 1.1) IVSs: 1.8 cm LVIDs: 3.4 cm LVPWs: 1.7 cm RVIDd: 3.6 cm (< 3.3) LAESV Index (A-L): 18.74 ml/m Ao Diam: 2.7 cm (2.0 - 3.7) AV Cusp: 2.1 cm (1.5 - 2.6) MV E Floyd: 1.05 m/s MV DecT: 159 ms MV A Floyd: 0.88 m/s MV E/A Ratio: 1.19 RAP: 5.00 mmHg RVSP: 36.24 mmHg FINDINGS -------- Sinus rhythm. This was a technically difficult study with suboptimal views. The left ventricular size is normal. There is mild concentric left ventricular hypertrophy. Overa ll left ventricular systolic function is low-normal with, an EF between 50 - 55 %. Septal wall alvin on is delayed and consistent with prior cardiac surgery. Apical septum LV wall motion is hypokineti c. The right ventricle is mildly enlarged. Normal LA size by volume 22+/-6 ml/m2. The right atrium was not well visualized. 5.0mg of Lumason was utilized for enhancement of images Interatrial and interventricular septum intact. The aortic valve was not well visualized. There is no evidence of aortic regurgitation. There is no evidence of aortic stenosis. No mitral regurgitation. Mild tricuspid regurgitation present. There is mild pulmonary hypertension. The right ventricular systolic pressure, as measured by Doppler, is 36.24mmHg. The pulmonic valve was not well visualized. The aortic root size is normal. IVC Not well visulized. There is no pericardial effusion. CONCLUSIONS -------- 1. The left ventricular size is normal. 2. There is mild concentric left ventricular hypertrophy. 3. Overall left ventricular systolic function is low-normal with, an EF between 50 - 55 %. 4. Septal wall motion is delayed and consistent with prior cardiac surgery. 5. Apical septum LV wall motion is hypokinetic. 6. The right ventricle is mildly enlarged. 7. Mild tricuspid regurgitation present. 8. There is mild pulmonary hypertension. 9. The right ventricular systolic pressure, as measured by Doppler, is 36.24mmHg. MOLD WORKER: Gisele Martino RDCS
[2019-11-24 15:45] VITALS: BP 98/61; PULSE 70
--- NOTE | 2019-11-24 17:08 | P.STRESS ---
- Stress Test Note Stress Test Results/Findings: Exam Performed: dobutamine stress echo with con Exam Date: 11/24/19 Reason for Exam: CHEST PAIN Height: 5 ft 3 in Weight: 131.995 kg Protocol: DSE Stage: 5 Duration of Exercise: 14:30 Resting Heart Rate: 72 Resting Blood Pressure: 190/71 Maximum Achieved Heart Rate: 146 Maximum Achieved Blood Pressure: 190/71 85% PMHR: 154 100% PMHR: 181 METS: NA Technologist Comment: Stress Test Results/Findings: Baseline heart rate 72 beats a minute, Baseline blood pressure 190/71 mmHg line baseline 12-lead ECG shows sinus rhythm with normal ST segments Patient received dobutamine infusion per protocol No ST segment abnormalities No arrhythmias Peak heart rate 146 beats a minute. Her pressure 136/65 mmHg The baseline 2-D echo images were suboptimal and Definity contrast was used There was stepwise increment in overall LV contractility without development of any wall motion abnormalities @Recovery regional global LV systolic function remained normal Impression No ECG or echocardiographic evidence for ischemia
[2019-11-24] MEDS ORDERED: APIXABAN 5 MG TAB PO SCH (21:00)
--- NOTE | 2019-11-25 08:17 | P.DS ---
Providers Date of admission: 11/22/19 18:11 Expected date of discharge: 11/24/19 Attending physician: Cody Mcdaniels Consults: 11/22/19 18:11 Consult Physician Urgent Consulting Provider: Rafael Agarwal Consult Reason/Comments: chest pain Do you want consulting provider notified?: Yes Primary care physician: Marya Foreman Hospital Course: Final diagnosis Chest pain, possible unstable angina history of coronary artery disease with coronary artery bypass graft History of deep vein thrombosis History of pulmonary embolus Hyperlipidemia and hypertriglyceridemia History of ongoing nicotine dependence History of MRSA History of cholecystectomy History of attention deficit hyperactivity disorder History of obesity with a body mass index of 51.5. Discharge disposition Patient is being discharged in a stable condition with guarded prognosis to home. Patient will follow-up with Dr. Foreman in the outpatient setting upon discharge. Patient also instructed to follow-up with Dr. Heriberto Montague in the outpatient setting. Patient will continue with aspirin low-dose along with imdur, Lipitor, Eliquis, and metoprolol upon discharge. Total time taken is greater than 35 minutes. History of present illness This is a 39-year-old female who was recently admitted with chest pain and was being closely monitored. Patient was seen and evaluated by cardiology initially recommending cardiac catheterization although continue with stress test today. Patient underwent an echo showing mild concentric left ventricular hypertrophy with overall left ventricular systolic function is low to normal with an EF between 50 and 55%, septal wall motion is delayed and consistent with prior cardiac surgery, apical septum LV wall motion is hypokinetic in the right ventricle is mildly enlarged. Mild tricuspid regurgitation present along with mild pulmonary hypertension with no pericardial effusion noted. Patient underwent dobutamine stress showing no ECG or echocardiographic evidence for ischemia. As mentioned previously patient will follow-up with cardiology in the outpatient setting. Currently no reports of chest pain, shortness of breath, or palpitations. Patient is afebrile. No reports of nausea or vomiting and patient is tolerating diet. Patient will be discharged to home today and will follow-up with cardiology in the outpatient setting. She will continue on Lipitor, Imdur, El iquis, metoprolol, and low-dose aspirin. On exam vital signs are stable. Temp is 97.7F, pulse is 65, respirations are 16, blood pressure is 105/65, oxygen saturation is 96% on room air. Cardio S1, S2 are muffled. Respiratory system shows diminished breath sounds at the bases with no wheezing or rhonchi noted. Abdomen is soft and obese, and nontender. Nervous system shows no focal deficits. Please refer to medication reconciliation sheet for a list of medications. Patient Condition at Discharge: Fair Plan - Discharge Summary Discharge Rx Participant: Yes New Discharge Prescriptions: New Aspirin 81 mg PO DAILY #30 chew Nicotine 14Mg/24Hr Patch [Habitrol] 1 patch TRANSDERM DAILY #30 patch Isosorbide Mononitrate ER [Imdur] 30 mg PO DAILY #30 tab Atorvastatin [Lipitor] 20 mg PO DAILY #30 tab Nitroglycerin Sl Tabs [Nitrostat] 0.4 mg SUBLINGUAL Q5M PRN #20 tab PRN Reason: Chest Pain Continue Apixaban [Eliquis] 5 mg PO BID Metoprolol Tartrate 25 mg PO BID Discharge Medication List Apixaban [Eliquis] 5 mg PO BID 02/19/18 [History] Metoprolol Tartrate 25 mg PO BID 06/10/18 [History] Aspirin 81 mg PO DAILY #30 chew 11/24/19 [Rx] Atorvastatin [Lipitor] 20 mg PO DAILY #30 tab 11/24/19 [Rx] Isosorbide Mononitrate ER [Imdur] 30 mg PO DAILY #30 tab 11/24/19 [Rx] Nicotine 14Mg/24Hr Patch [Habitrol] 1 patch TRANSDERM DAILY #30 patch 11/24/19 [Rx] Nitroglycerin Sl Tabs [Nitrostat] 0.4 mg SUBLINGUAL Q5M PRN #20 tab 11/24/19 [Rx] Follow up Appointment(s)/Referral(s): Pio Montague MD [STAFF PHYSICIAN] - 12/11/19 8:45 am Marya Foreman MD [Primary Care Provider] - 11/27/19 3:00 pm Ambulatory/Diagnostic Orders: Complete Blood Count w/diff [LAB.AMB] Location: None Selected Patient Instructions/Handouts: Chest Pain (GEN), Heart Healthy Diet (GEN)
[2019-11-25] MEDS ORDERED: ASPIRIN 81 MG PO SCH (09:00)
== END 2019-11-24 17:19 | disposition home or self-care (01) ==
LOC: EC 15:22 → 3NCARDOBS 18:11
PROVIDERS: ADMIT Hospitalist; ATTEND Hospitalist
DX: R07.9 Chest pain, unspecified (principal); I25.10 Atherosclerotic heart disease of native coronary artery without angina pectoris; E78.5 Hyperlipidemia, unspecified; F17.200 Nicotine dependence, unspecified, uncomplicated; E78.1 Pure hyperglyceridemia; Z03.818 Encounter for observation for suspected exposure to other biological agents ruled out; Z86.14 Personal history of Methicillin resistant Staphylococcus aureus infection; Z90.49 Acquired absence of other specified parts of digestive tract; F90.9 Attention-deficit hyperactivity disorder, unspecified type; E66.01 Morbid (severe) obesity due to excess calories; Z68.43 Body mass index [BMI] 50.0-59.9, adult; I25.2 Old myocardial infarction; Z95.1 Presence of aortocoronary bypass graft; Z86.718 Personal history of other venous thrombosis and embolism; Z86.711 Personal history of pulmonary embolism; Z80.49 Family history of malignant neoplasm of other genital organs; Z98.890 Other specified postprocedural states; Z83.3 Family history of diabetes mellitus; Z82.3 Family history of stroke; Z82.49 Family history of ischemic heart disease and other diseases of the circulatory system; Z84.1 Family history of disorders of kidney and ureter; Z81.8 Family history of other mental and behavioral disorders; Z79.01 Long term (current) use of anticoagulants; Z79.899 Other long term (current) drug therapy; Z88.1 Allergy status to other antibiotic agents; Z91.040 Latex allergy status; Z88.5 Allergy status to narcotic agent; Z88.0 Allergy status to penicillin; Z88.8 Allergy status to other drugs, medicaments and biological substances; Z91.09 Other allergy status, other than to drugs and biological substances
CPT/HCPCS: 93005 ×2; 96365; 96366; 96375 ×2; 96376 ×2; 99285; 36415; 93306; 93351; 85379; 83880; 80061; 80048 ×3; 83605; 83735; 84484; 85025 ×3; 85610; 85730 ×3; 80306; 71046; 71275; 74174; G0378 ×3; U0003; S4990 ×3; J1250; J1200; J1644 ×2; J0461; C9113 ×2; J1170 ×3; Q9950; Q9967

== ENCOUNTER 2020-02-12 10:09 | Day surgery (SDC) | payer BC, OTHER ==
[2020-02-11 10:30] VITALS: BMI 51.3
[2020-02-12 11:27] VITALS: RESP 16; TEMP 97.9
[2020-02-12] MEDS: LACTATED RINGERS 1,000 ML IV SCH ×2 (11:35→12:04)
[2020-02-12] MEDS ORDERED: LIDOCAINE 1% (10MG/ML) FOR IV START INTRADERMA ONE (11:36)
[2020-02-12] MEDS ORDERED: LIDOCAINE 1% INJ 10MG/ML (20 ML MDV) ONE (12:06)
[2020-02-12] MEDS ORDERED: MIDAZOLAM 2 MG/2 ML VIAL ONE (12:06)
[2020-02-12] MEDS ORDERED: PROPOFOL 10 MG/ML 20 ML VIAL IV ONE (12:06)
--- NOTE | 2020-02-12 12:07 | P.GSHP ---
History of Present Illness H&P Date: 02/12/20 Chief Complaint: GERD, morbid obesity This a 39-year-old female who presents today for EGD. She's had issues with GERD. She is morbidly obese. Her BMI is 52. Past Medical History Past Medical History: Coronary Artery Disease (CAD), Chest Pain / Angina, Deep Vein Thrombosis (DVT), GERD/Reflux, Hyperlipidemia, Myocardial Infarction ([place]), Pulmonary Embolus ([place]) Additional Past Medical History / Comment(s): CABG, Last Myocardial Infarction Date:: 04/2017 History of Any Multi-Drug Resistant Organisms: MRSA Date of last positivie culture/infection: 2014 MDRO Source:: abdomen Past Surgical History: Section, Cholecystectomy, Coronary Bypass/CABG, Heart Catheterization Additional Past Surgical History / Comment(s): Right wrist surgery, carpal tunnel, MRSA S/P wound, left knee surgery, had a miscarrage. Past Anesthesia/Blood Transfusion Reactions: Postoperative Nausea & Vomiting (PONV) Past Psychological History: ADD/ADHD Smoking Status: Current every day smoker Past Alcohol Use History: Rare Additional Past Alcohol Use History / Comment(s): STARTED SMOKING AT AGE 12, SMOKES 1PPD. Past Drug Use History: None Reported - Past Family History Mother Family Medical History: Cancer, CVA/TIA, Diabetes Mellitus, Myocardial Infarction ([place]), Renal Disease Additional Family Medical History / Comment(s): Uterine cancer, artificial valves, and kidney disease, . Father Additional Family Medical History / Comment(s): PAD Brother(s) Family Medical History: Coronary Artery Disease (CAD), Diabetes Mellitus Additional Family Medical History / Comment(s): 2 HEART STENTS, issue with heart valve Sister(s) Additional Family Medical History / Comment(s): psych issues Daughter(s) Family Medical History: No Reported History Son(s) Family Medical History: No Reported History Medications and Allergies Home Medications Medication Instructions Recorded Confirmed Type Apixaban [Eliquis] 5 mg PO BID 02/19/18 02/12/20 History Metoprolol Tartrate 25 mg PO BID 06/10/18 02/12/20 History Aspirin 81 mg PO DAILY #30 chew 11/24/19 02/12/20 Rx Nicotine 14Mg/24Hr Patch [Habitrol] 1 patch TRANSDERM DAILY #30 patch 11/24/19 02/12/20 Rx Nitroglycerin Sl Tabs [Nitrostat] 0.4 mg SUBLINGUAL Q5M PRN #20 tab 11/24/19 02/12/20 Rx Atorvastatin [Lipitor] 20 mg PO HS 12/30/19 02/12/20 History Enoxaparin [Lovenox] 120 mg SQ BID 12/30/19 02/12/20 History Isosorbide Mononitrate ER [Imdur] 30 mg PO QAM 02/11/20 02/12/20 History Allergies Allergy/AdvReac Type Severity Reaction Status Date / Time adhesive Allergy Rash/Hives Verified 02/11/20 10:17 albuterol Allergy Anaphylaxis Verified 02/11/20 10:17 amoxicillin Allergy Anaphylaxis Verified 02/11/20 10:17 ampicillin Allergy Anaphylaxis Verified 02/11/20 10:17 azithromycin [From Zithromax] Allergy Anaphylaxis Verified 02/11/20 10:17 erythromycin base Allergy Anaphylaxis Verified 02/11/20 10:17 latex Allergy Rash/Hives Verified 02/11/20 10:17 penicillin V Allergy Anaphylaxis Verified 02/11/20 10:17 morphine AdvReac Hallucinati Verified 02/11/20 10:17 ons Surgical - Exam Vital Signs Temp Pulse Resp BP Pulse Ox 97.9 F 88 16 125/66 97 02/12/20 11:27 02/12/20 11:27 02/12/20 11:27 02/12/20 11:27 02/12/20 11:27 - General well developed, well nourished, no distress - Eyes PERRL - ENT normal pinna - Neck no masses - Respiratory normal expansion - Cardiovascular Rhythm: regular - Abdomen Abdomen: soft, non tender Assessment and Plan Assessment: GERD Morbid obesity We'll perform EGD.
--- NOTE | 2020-02-12 12:18 | P.OP ---
Date of Procedure: 02/12/20 Preoperative Diagnosis: GERD Morbid obesity Postoperative Diagnosis: Antral gastritis No evidence of hiatal hernia Mild esophagitis Morbid obesity, BMI 52 Procedure(s) Performed: EGD Anesthesia: MAC Surgeon: Maurizio Chu Pathology: other (Antrum, esophagus) Condition: stable Disposition: PACU Description of Procedure: The patient's placed on the endoscopy table in the lateral position. She received IV sedation. The gastroscope placed oropharynx passed in the esophagus and stomach. Scope was placed through the pylorus. First and second portion of the duodenum appeared normal. Scope summer back the antrum and this was mildly inflamed. A biopsies performed. Scope was then retroflexed and the remainder of the stomach appeared normal. The GE junction was at 40 cm. There is no evidence of a hiatal hernia. The distal esophagus appeared minimally inflamed a biopsies performed. The proximal esophagus appeared normal. Scope was withdrawn for patient.
[2020-02-12 12:44] VITALS: PULSE 90
[2020-02-12 12:45] VITALS: BP 141/94
== END 2020-02-12 13:01 | disposition home or self-care (01) ==
LOC: ORWHC2ENDO 10:09
PROVIDERS: ATTEND Surgery
DX: K21.00 Gastro-esophageal reflux disease with esophagitis, without bleeding (principal); K29.50 Unspecified chronic gastritis without bleeding; K22.8 Other specified diseases of esophagus; E66.01 Morbid (severe) obesity due to excess calories; I25.10 Atherosclerotic heart disease of native coronary artery without angina pectoris; E78.5 Hyperlipidemia, unspecified; I25.2 Old myocardial infarction; F90.9 Attention-deficit hyperactivity disorder, unspecified type; F17.210 Nicotine dependence, cigarettes, uncomplicated; K08.89 Other specified disorders of teeth and supporting structures; I10 Essential (primary) hypertension; G47.33 Obstructive sleep apnea (adult) (pediatric); Z68.43 Body mass index [BMI] 50.0-59.9, adult; Z86.718 Personal history of other venous thrombosis and embolism; Z86.711 Personal history of pulmonary embolism; Z95.1 Presence of aortocoronary bypass graft; Z86.14 Personal history of Methicillin resistant Staphylococcus aureus infection; Z98.890 Other specified postprocedural states; Z90.49 Acquired absence of other specified parts of digestive tract; Z86.69 Personal history of other diseases of the nervous system and sense organs; Z87.59 Personal history of other complications of pregnancy, childbirth and the puerperium; Z91.89 Other specified personal risk factors, not elsewhere classified; Z79.01 Long term (current) use of anticoagulants; Z79.899 Other long term (current) drug therapy; Z79.82 Long term (current) use of aspirin; Z91.09 Other allergy status, other than to drugs and biological substances; Z88.8 Allergy status to other drugs, medicaments and biological substances; Z88.0 Allergy status to penicillin; Z88.1 Allergy status to other antibiotic agents; Z91.040 Latex allergy status; Z88.5 Allergy status to narcotic agent; Z80.49 Family history of malignant neoplasm of other genital organs; Z82.3 Family history of stroke; Z83.3 Family history of diabetes mellitus; Z82.49 Family history of ischemic heart disease and other diseases of the circulatory system; Z84.1 Family history of disorders of kidney and ureter; Z81.8 Family history of other mental and behavioral disorders
CPT/HCPCS: 81025; 88305; 43239; J2250; J2001; J2704

== ENCOUNTER → 2020-02-16 | Outpatient (CLI) | payer BC, OTHER ==
[2020-02-16 14:41] VITALS: BP 129/85; PULSE 101; TEMP 98.1; BMI 51.0
--- NOTE | 2020-02-16 14:55 | P.HPBAR ---
Bariatric H&P - History & Physicial H&P Date: 02/16/20 History & Physicial: Visit/CC: initial visit Patient initial contact: Initial weight: Initial weight in pounds: Height: 5 ft 3 in Initial BMI: Last weight: Current weight: 130.635 kg Current weight in pounds: 288.00 Current BMI: 51.0 [place] body weight (based on NIH guidelines): 52.163 kg Excess body weight loss: The patient is a 39 year-old F who presents for Bariatric Assessment. Patient presents today for initial batch assessment. Her BMI 51. She is requesting sleeve gastrectomy. Past Medical History Past Medical History: Coronary Artery Disease (CAD), Chest Pain / Angina, Deep Vein Thrombosis (DVT), GERD/Reflux, Hyperlipidemia, Myocardial Infarction ([place]), Pulmonary Embolus ([place]) Additional Past Medical History / Comment(s): CABG, Last Myocardial Infarction Date:: 04/2017 History of Any Multi-Drug Resistant Organisms: MRSA Year Discovered:: 2014 MDRO Source:: abdomen Past Surgical History: Section, Cholecystectomy, Coronary Bypass/CABG, Heart Catheterization Additional Past Surgical History / Comment(s): Right wrist surgery, carpal tunnel, MRSA S/P wound, left knee surgery, had a miscarrage. Past Anesthesia/Blood Transfusion Reactions: Postoperative Nausea & Vomiting (PONV) Past Psychological History: ADD/ADHD Smoking Status: Current every day smoker Past Alcohol Use History: Rare Additional Past Alcohol Use History / Comment(s): STARTED SMOKING AT AGE 12, SMOKES 1PPD. Past Drug Use History: None Reported - Past Family History Mother Family Medical History: Cancer, CVA/TIA, Diabetes Mellitus, Myocardial Infarction ([place]), Renal Disease Additional Family Medical History / Comment(s): Uterine cancer, artificial valves, and kidney disease, . Father Additional Family Medical History / Comment(s): PAD Brother(s) Family Medical History: Coronary Artery Disease (CAD), Diabetes Mellitus Additional Family Medical History / Comment(s): 2 HEART STENTS, issue with heart valve Sister(s) Additional Family Medical History / Comment(s): psych issues Daughter(s) Family Medical History: No Reported History Son(s) Family Medical History: No Reported History Surgical - Exam Vital Signs Temp Pulse BP 98.1 F 101 H 129/85 02/16/20 14:30 02/16/20 14:30 02/16/20 14:30 - General well developed, well nourished, no distress - Eyes PERRL - ENT normal pinna - Neck no masses - Respiratory normal expansion - Cardiovascular Rhythm: regular - Abdomen Abdomen: soft, non tender Bariatric Assessment & Plan Plan: Morbid obesity, BMI 51. Patient will be scheduled for sleeve gastrectomy once her insurance authorization requirements have been met. She's undergone recent EGD. The patient will need cardiac clearance due to her previous heart history. She'll follow-up in one month. Bariatric Checklist Checklist: Plan: Checklist: EGD: 1. Hiatal hernia: 2. H. Pylori: HgbA1c: Vitamin D: Smoking: Current every day smoker Primary care physician referral: Dr. Foreman Psychiatry clearance: Cardiology clearance: Sleep study: Diet journal: VTE risk score: VTE risk level: Rehab needs at discharge:
[2020-02-16 16:07] LABS: HCT 41.5 % (34.0-46.0); HGB 13.6 gm/dL (11.4-16.0); MCH 30.2 pg (25.0-35.0); MCHC 32.8 g/dL (31.0-37.0); Mean Platelet Volume 7.1; Platelet Count 245 k/uL (150-450); RBC 4.51 m/uL (3.80-5.40); RDW 13.1 % (11.5-15.5); WBC 6.4 k/uL (3.8-10.6)
[2020-02-17 01:31] LABS: Hemoglobin A1C 5.5 % (4.0-6.0)
[2020-02-17 02:47] LABS: African American GFR (CKD) 107.6 (60.0-200.0); Albumin 4.3 g/dL (3.80-4.90); Albumin/Globulin Ratio 2.15 (1.60-3.17); Calcium 9.2 mg/dL (8.7-10.3); Non-African American GFR(CKD) 92.9 (60.0-200.0); Potassium 4.3 mmol/L (3.5-5.5); Total Bilirubin 0.2 mg/dL (0.3-1.2); Total Protein 6.3 g/dL (6.2-8.2)
[2020-02-17 03:19] LABS: Folate, Serum 11.5 ng/mL
== END | disposition home or self-care (01) ==
LOC: BARWHC3 14:20
PROVIDERS: ATTEND Surgery
DX: E66.01 Morbid (severe) obesity due to excess calories (principal); E88.81 Metabolic syndrome and other insulin resistance; E55.9 Vitamin D deficiency, unspecified; Z68.43 Body mass index [BMI] 50.0-59.9, adult; F17.200 Nicotine dependence, unspecified, uncomplicated; Z90.49 Acquired absence of other specified parts of digestive tract
CPT/HCPCS: 80053; 82306; 82607; 82746; 83036; 84425; 85027; 93005; 99211

== ENCOUNTER 2020-03-03 19:34 | Emergency (ER) | payer BC, OTHER ==
[2020-03-03 19:43] VITALS: TEMP 97.8
[2020-03-03 20:30] LABS: Basophils # (A) 0.1 k/uL (0-0.2); Basophils % (A) 1 %; Eosinophils # (A) 0.2 k/uL (0-0.7); Eosinophils % (A) 2 %; HCT 42.9 % (34.0-46.0); HGB 14.1 gm/dL (11.4-16.0); Lymphocytes # (A) 2.9 k/uL (1.0-4.8); Lymphocytes % (A) 28 %; MCH 29.7 pg (25.0-35.0); MCHC 32.9 g/dL (31.0-37.0); MCV 90.3 fL (80.0-100.0); Mean Platelet Volume 7.4; Monocytes # (A) 0.4 k/uL (0-1.0); Monocytes % (A) 4 %; Neutrophils # (A) 6.7 k/uL (1.3-7.7); Neutrophils % (A) 64 %; Platelet Count 261 k/uL (150-450); RBC 4.76 m/uL (3.80-5.40); RDW 13.3 % (11.5-15.5); WBC 10.5 k/uL (3.8-10.6)
[2020-03-03 20:47] LABS: ALT 19 U/L (4-34); AST 23 U/L (14-36); African American GFR (CKD) >90 (>60 ml/min/1.73 sqM); Albumin 4.1 g/dL (3.5-5.0); Alkaline Phosphatase 74 U/L (38-126); Anion Gap 7 mmol/L; Blood Urea Nitrogen 12 mg/dL (7-17); Calcium 9.4 mg/dL (8.4-10.2); Carbon Dioxide 27 mmol/L (22-30); Chloride 104 mmol/L (98-107); Glucose 103 mg/dL (74-99); Lipase 154 U/L (23-300); Magnesium 1.9 mg/dL (1.6-2.3); Non-African American GFR(CKD) 88 (>60 ml/min/1.73 sqM); Potassium 3.9 mmol/L (3.5-5.1); Sodium 138 mmol/L (137-145); Total Bilirubin 0.3 mg/dL (0.2-1.3)
--- NOTE | 2020-03-03 20:50 | ED ---
Chest Pain HPI - General Chief Complaint: Chest Pain Stated Complaint: chest pain Time Seen by Provider: 03/03/20 19:56 Source: patient Mode of arrival: ambulatory Limitations: no limitations - History of Present Illness Initial Comments: 39-year-old female with history of CABG in 2018, CAD presented to the emergency department with a chief complaint of chest pain. Patient reports that she was diagnosed with Covid exactly 10 days ago and today was her last day of self- isolation. However, she developed midsternal chest pain is radiating to her back for the past 4-5 hours and is associated with dyspnea on exertion. She reports that pain is reproducible to palpation, however she has had midsternal tenderness ever since her CABG. She denies any lightheaded dizziness or diaphoretic episodes. Denies any headaches, one-sided weakness or paresthesias. She reports taking 2 nitro tablets with no improvement in symptoms. She does have intermittent chest pain at baseline but never last this long. - Related Data Home Medications Medication Instructions Recorded Confirmed Apixaban [Eliquis] 5 mg PO BID 02/19/18 03/03/20 Metoprolol Tartrate 25 mg PO BID 06/10/18 03/03/20 Isosorbide Mononitrate ER [Imdur] 30 mg PO DAILY 02/11/20 03/03/20 Atorvastatin Calcium [Lipitor] 20 mg PO HS 03/03/20 03/03/20 Previous Rx's Medication Instructions Recorded Nitroglycerin Sl Tabs [Nitrostat] 0.4 mg SUBLINGUAL Q5M PRN #20 tab 11/24/19 Allergies Allergy/AdvReac Type Severity Reaction Status Date / Time adhesive Allergy Rash/Hives Verified 03/03/20 21:28 albuterol Allergy Anaphylaxis Verified 03/03/20 21:28 amoxicillin Allergy Anaphylaxis Verified 03/03/20 21:28 ampicillin Allergy Anaphylaxis Verified 03/03/20 21:28 azithromycin [From Zithromax] Allergy Anaphylaxis Verified 03/03/20 21:28 erythromycin base Allergy Anaphylaxis Verified 03/03/20 21:28 latex Allergy Rash/Hives Verified 03/03/20 21:28 penicillin V Allergy Anaphylaxis Verified 03/03/20 21:28 morphine AdvReac Hallucinati Verified 03/03/20 21:28 ons Review of Systems ROS Statement: Those systems with pertinent positive or pertinent negative responses have been documented in the HPI. ROS Other: All systems not noted in ROS Statement are negative. Past Medical History Past Medical History: Coronary Artery Disease (CAD), Chest Pain / Angina, Deep Vein Thrombosis (DVT), GERD/Reflux, Hyperlipidemia, Myocardial Infarction ([place]), Pulmonary Embolus ([place]) Additional Past Medical History / Comment(s): CABG, Covid 19, Last Myocardial Infarction Date:: 04/2017 History of Any Multi-Drug Resistant Organisms: MRSA Date of last positivie culture/infection: 2014 MDRO Source:: abdomen Past Surgical History: Section, Cholecystectomy, Coronary Bypass/CABG, Heart Catheterization Additional Past Surgical History / Comment(s): Right wrist surgery, carpal tunnel, MRSA S/P wound, left knee surgery, had a miscarrage, CABG Past Anesthesia/Blood Transfusion Reactions: Postoperative Nausea & Vomiting (PONV) Past Psychological History: ADD/ADHD Smoking Status: Current every day smoker Past Alcohol Use History: Rare Past Drug Use History: Marijuana - Past Family History Mother Family Medical History: Cancer, CVA/TIA, Diabetes Mellitus, Myocardial Infarction ([place]), Renal Disease Additional Family Medical History / Comment(s): Uterine cancer, artificial v boyer, and kidney disease, . Father Additional Family Medical History / Comment(s): PAD Brother(s) Family Medical History: Coronary Artery Disease (CAD), Diabetes Mellitus Additional Family Medical History / Comment(s): 2 HEART STENTS, issue with heart valve Sister(s) Additional Family Medical History / Comment(s): psych issues Daughter(s) Family Medical History: No Reported History Son(s) Family Medical History: No Reported History General Exam Limitations: no limitations General appearance: alert, in no apparent distress, obese Head exam: Present: atraumatic, normocephalic, normal inspection Eye exam: Present: normal appearance, PERRL, EOMI Pupils: Present: normal accommodation ENT exam: Present: normal exam, normal oropharynx, mucous membranes moist, TM's normal bilaterally, normal external ear exam Neck exam: Present: normal inspection, full ROM. Absent: tenderness Respiratory exam: Present: normal lung sounds bilaterally. Absent: respiratory distress, wheezes, rales, rhonchi, stridor Cardiovascular Exam: Present: regular rate, normal rhythm, normal heart sounds. Absent: systolic murmur, diastolic murmur GI/Abdominal exam: Present: soft. Absent: distended, tenderness, guarding, rebound Extremities exam: Present: normal inspection, full ROM, normal capillary refill, other (+2 ulnar and radial pulses bilateral.). Absent: tenderness, pedal edema, joint swelling, calf tenderness Back exam: Present: normal inspection, full ROM. Absent: tenderness, CVA tenderness (R), CVA tenderness (L) Neurological exam: Present: alert, oriented X3, normal gait Psychiatric exam: Present: normal affect, normal mood Skin exam: Present: warm, dry, intact, normal color Course Vital Signs 03/03/20 03/03/20 03/03/20 19:39 20:04 20:06 Temperature 97.8 F Pulse Rate 89 92 Pulse Rate [ 90 Pole Climber ] Respiratory 20 21 22 Rate Blood Pressure 134/93 O2 Sat by Pulse 98 97 Oximetry 03/03/20 03/03/20 03/03/20 20:30 21:00 21:30 Temperature Pulse Rate 86 84 84 Pulse Rate [ Pole Climber ] Respiratory 21 21 21 Rate Blood Pressure 102/53 122/79 121/75 O2 Sat by Pulse 98 97 98 Oximetry - Reevaluation(s) Reevaluation #1: 03/03/20 23:06 Medical record reviewed 03/03/20 23:06 Chest Pain MDM - Differential Diagnosis ACS, Pneumonia, Pleurisy-Other, Chest Wall Syndrome - MDM 39-year-old female presenting to the emergency department with a chief complaint of chest pain. Physical examination reveals mild testable patient in them midsternal region. She does have history of CABG. CBC CMP unremarkable. Coags within normal limits. Initial troponin is negative. D-dimer negative. Echocardiogram and stress test 2 months ago were unremarkable. CT angiogram of the chest and abdomen performed to rule out a dissection which revealed benign findings. Patient was offered admission, she declined. States she would like to go home and will follow-up this week with her automatic spooler operator. Return parameters to discussed the patient is a attending ago. Case discussed with physician. Disposition Clinical Impression: Chest pain Disposition: HOME SELF-CARE Condition: Stable Instructions (If sedation given, give patient instructions): Chest Pain (ED) Additional Instructions: Follow with the automatic spooler operator. Return to emergency department if symptoms worsen. Is patient prescribed a controlled substance at d/c from ED?: No Referrals: Marya Foreman MD [Primary Care Provider] - 1-2 days Time of Disposition: 22:03
--- NOTE | 2020-03-03 20:51 | XR ---
EXAMINATION TYPE: XR chest 2V DATE OF EXAM: 03/03/2020 COMPARISON: 11/22/2019 HISTORY: Chest pain TECHNIQUE: FINDINGS: Heart is normal. Lungs are clear. There is no heart failure. There are sternal wires. Bony thorax is intact. There are chest leads. IMPRESSION: No active cardiopulmonary disease. Normal heart. No change.
[2020-03-03 21:14] LABS: D-Dimer 0.42 mg/L FEU (<0.60); INR 0.9 (<1.2); Partial Thromboplastin Time 22.6 sec (22.0-30.0); Prothrombin Time 9.4 sec (9.0-12.0)
--- NOTE | 2020-03-03 21:41 | CT ---
EXAMINATION TYPE: CT angio thor/abd pel aorta DATE OF EXAM: 03/03/2020 COMPARISON: 11/22/2019 HISTORY: Chest pain CT DLP: 3382.8 mGycm Automated exposure control for dose reduction was used. CONTRAST: Performed without and with IV Contrast, patient injected with 100 mL of Isovue 370. Images were obtained from the thoracic inlet to the floor the pelvis without and with IV contrast. Th ere are 3-D post processed images. The lungs are clear of infiltrate. There is no evidence of a pulmonary mass. There is no evidence of renal calculus. There are clips from cholecystectomy. Heart is normal. There are no hilar masses. Tho racic aorta is intact. There is no aneurysm or dissection. There is no mediastinal adenopathy. Liver spleen pancreas stomach appear normal. There are clips from cholecystectomy. There is no adrena l mass. Kidneys show satisfactory contrast opacification. There is no hydronephrosis. There is small umbilical hernia that contains fat. Appendix appears normal. Bladder distends smoothly. There is no i nguinal hernia. There is no free fluid in the pelvis. Uterus is anteverted. There is no pelvic mass. There is no mesenteric edema. There is no ascites or free air. There is normal contrast opacification of the celiac artery and superior mesenteric artery and both r enal arteries. There is arterial flow in the iliac and femoral arteries. There is no evidence of aneu rysm or dissection. There is no evidence of hemodynamic stenosis. IMPRESSION: Negative exam. No angiographic abnormality. No adverse change compared to old exam. FINDINGS:
[2020-03-03 21:57] VITALS: BP 121/75; PULSE 84; RESP 21
== END 2020-03-03 22:10 | disposition home or self-care (01) ==
LOC: EC 19:34
DX: R07.9 Chest pain, unspecified (principal); R06.00 Dyspnea, unspecified; E78.5 Hyperlipidemia, unspecified; I25.2 Old myocardial infarction; Z79.01 Long term (current) use of anticoagulants; Z79.899 Other long term (current) drug therapy; F17.200 Nicotine dependence, unspecified, uncomplicated; Z88.0 Allergy status to penicillin; Z88.1 Allergy status to other antibiotic agents; Z88.5 Allergy status to narcotic agent; Z91.048 Other nonmedicinal substance allergy status; Z91.040 Latex allergy status; Z86.711 Personal history of pulmonary embolism; Z86.718 Personal history of other venous thrombosis and embolism; Z86.19 Personal history of other infectious and parasitic diseases; Z86.14 Personal history of Methicillin resistant Staphylococcus aureus infection; Z95.1 Presence of aortocoronary bypass graft; Z82.49 Family history of ischemic heart disease and other diseases of the circulatory system
CPT/HCPCS: 36415; 93005; 85379; 83880; 80053; 83690; 83735; 84484; 85025; 85610; 85730; 71046; 71275; 74174; 99285; Q9967

== ENCOUNTER → 2020-04-12 | Outpatient (CLI) | payer BC, OTHER ==
[2020-04-12 09:33] VITALS: BMI 51.5
== END | disposition home or self-care (01) ==
LOC: BARWHC3 08:49
PROVIDERS: ATTEND Surgery
DX: E66.01 Morbid (severe) obesity due to excess calories (principal); Z71.3 Dietary counseling and surveillance; Z68.43 Body mass index [BMI] 50.0-59.9, adult
CPT/HCPCS: 97804

== ENCOUNTER → 2020-04-19 | Outpatient (CLI) | payer BC, OTHER ==
[2020-04-19 13:20] VITALS: BP 120/73; PULSE 100; RESP 18; TEMP 98.1; BMI 51.0
--- NOTE | 2020-04-19 14:18 | P.HPBAR ---
Bariatric H&P - History & Physicial H&P Date: 04/19/20 History & Physicial: Visit/CC: pre-surgical Patient initial contact: Initial weight: Initial weight in pounds: Height: 5 ft 3 in Initial BMI: Last weight: Current weight: 130.635 kg Current weight in pounds: 288.00 Current BMI: 51.0 [place] body weight (based on NIH guidelines): 52.163 kg Excess body weight loss: The patient is a 39 year-old F who presents for Bariatric Assessment. Patient presents today for sleeve gastrectomy consultation. She is morbidly obese. Her BMI is 51. Past Medical History Past Medical History: Coronary Artery Disease (CAD), Chest Pain / Angina, Deep Vein Thrombosis (DVT), GERD/Reflux, Hyperlipidemia, Myocardial Infarction ([place]), Pulmonary Embolus ([place]) Additional Past Medical History / Comment(s): CABG, Covid 19, Last Myocardial Infarction Date:: 04/2017 History of Any Multi-Drug Resistant Organisms: MRSA Year Discovered:: 2014 MDRO Source:: abdomen Past Surgical History: Section, Cholecystectomy, Coronary Bypass/CABG, Heart Catheterization Additional Past Surgical History / Comment(s): Right wrist surgery, carpal tunnel, MRSA S/P wound, left knee surgery, had a miscarrage, CABG Past Anesthesia/Blood Transfusion Reactions: Postoperative Nausea & Vomiting (PONV) Past Psychological History: ADD/ADHD Smoking Status: Current every day smoker Past Alcohol Use History: Rare Additional Past Alcohol Use History / Comment(s): STARTED SMOKING AT AGE 12, SMOKES 1PPD. Past Drug Use History: Marijuana - Past Family History Mother Family Medical History: Cancer, CVA/TIA, Diabetes Mellitus, Myocardial Infarction ([place]), Renal Disease Additional Family Medical History / Comment(s): Uterine cancer, artificial valves, and kidney disease, . Father Additional Family Medical History / Comment(s): PAD Brother(s) Family Medical History: Coronary Artery Disease (CAD), Diabetes Mellitus Additional Family Medical History / Comment(s): 2 HEART STENTS, issue with heart valve Sister(s) Additional Family Medical History / Comment(s): psych issues Daughter(s) Family Medical History: No Reported History Son(s) Family Medical History: No Reported History Surgical - Exam Vital Signs Temp Pulse Resp BP 98.1 F 100 18 120/73 04/19/20 13:14 04/19/20 13:14 04/19/20 13:14 04/19/20 13:14 - General well developed, well nourished, no distress - Eyes PERRL - ENT normal pinna - Neck no masses - Respiratory normal expansion - Cardiovascular Rhythm: regular - Abdomen Abdomen: soft, non tender Bariatric Assessment & Plan Plan: Morbid obesity, BMI 51. Patient will be scheduled for sleeve gastrectomy when she meets her insurance authorization requirements. She'll follow-up in 4 weeks. Bariatric Checklist Checklist: Plan: Checklist: EGD: 1. Hiatal hernia: 2. H. Pylori: HgbA1c: Vitamin D: Smoking: Current every day smoker Primary care physician referral: Dr. Foreman Psychiatry clearance: Cardiology clearance: Sleep study: Diet journal: VTE risk score: VTE risk level: Rehab needs at discharge:
== END | disposition home or self-care (01) ==
LOC: BARWHC3 12:49
PROVIDERS: ATTEND Surgery
DX: E66.01 Morbid (severe) obesity due to excess calories (principal); F17.200 Nicotine dependence, unspecified, uncomplicated; Z90.49 Acquired absence of other specified parts of digestive tract; Z98.890 Other specified postprocedural states
CPT/HCPCS: 99211

== ENCOUNTER → 2020-05-06 | Outpatient (CLI) | payer BC ==
[2020-05-06 12:50] LABS: HCT 44.7 % (34.0-46.0); HGB 14.8 gm/dL (11.4-16.0); MCHC 33.2 g/dL (31.0-37.0); MCV 90.5 fL (80.0-100.0); Platelet Count 296 k/uL (150-450); RBC 4.94 m/uL (3.80-5.40); RDW 13.3 % (11.5-15.5); WBC 10.2 k/uL (3.8-10.6)
[2020-05-06 13:41] LABS: African American GFR (CKD) >90 (>60 ml/min/1.73 sqM); Anion Gap 6 mmol/L; Blood Urea Nitrogen 7 mg/dL (7-17); Carbon Dioxide 27 mmol/L (22-30); Chloride 105 mmol/L (98-107); Non-African American GFR(CKD) >90 (>60 ml/min/1.73 sqM); Potassium 4.3 mmol/L (3.5-5.1); Sodium 138 mmol/L (137-145)
== END | disposition home or self-care (01) ==
LOC: LABPAT 12:09
PROVIDERS: ATTEND Internal Medicine Interventional Cardiology
DX: Z01.818 Encounter for other preprocedural examination (principal)
CPT/HCPCS: 80051; 82565; 84520; 85027

== ENCOUNTER → 2020-05-10 | Outpatient (CLI) | payer BC ==
[2020-05-11 02:34] LABS: T4, Free (Free Thyroxine) 1.3 ng/dL (0.80-1.80)
== END | disposition home or self-care (01) ==
LOC: LABWHC1 15:55
PROVIDERS: ATTEND Internal Medicine Interventional Cardiology
DX: E03.9 Hypothyroidism, unspecified (principal)
CPT/HCPCS: 36415; 84439; 84443

== ENCOUNTER → 2020-05-14 | Day surgery (SDC) | payer BC, OTHER ==
[2020-05-12 17:19] VITALS: BMI 51.3
[~2020-05-14] MED LIST changes: +ACETAMINOPHEN TAB 325 MG TAB ONE; +ALPRAZolam 0.25 MG TAB PO PRN; +ALPRAZolam 0.5 MG TAB PO PRN; +ASPIRIN 325 MG TAB PO ONE; +ATORVASTATIN 80 MG TAB PO ONE; -ATROPINE SULFATE 0.1 MG/ML 10ML SYRINGE ONE; +HEPARIN SODIUM 1,000 UN/ML (10ML VL) ONE; +IOPAMIDOL-370 100ML BTL INJ ONE; +IOPAMIDOL-370 50ML BTL INJ ONE; +LIDOCAINE 1% INJ 10MG/ML (20 ML MDV) ONE; +LIDOCAINE 1% INJ 10MG/ML (20 ML MDV) SQ ONE; +MIDAZOLAM 2 MG/2 ML VIAL IV ONE; +NITROGLYCERIN SL TABS 0.4 MG TAB SUBLINGUAL PRN; +SODIUM CHLORIDE 0.9% 1,000 ML IV ONE; +SODIUM CHLORIDE 0.9% 1,000 ML IV SCH; +SODIUM CHLORIDE 0.9% 1,000 ML in EMPTY BAG 1 BAG IV ONE; +VERAPAMIL 2.5 MG/ML 2 ML AMP ONE; +fentaNYL (PF) 50 MCG/ML 2 ML AMP IV ONE; +fentaNYL (PF) 50 MCG/ML 2 ML AMP ONE
[2020-05-14 07:19] VITALS: RESP 16; TEMP 98.4
--- NOTE | 2020-05-14 09:35 | CC ---
CARDIAC CATHETERIZATION REPORT DATE OF SERVICE: 05/14/2020 PROCEDURE: Left heart catheterization, coronary angiography, left internal mammary artery injection and left ventriculography. PERFORMED BY: Dr. Scarlett Montague. Moderate conscious sedation time was 31 minutes. Patient was administered Versed. Oxygen saturation, hemodynamics, and EKG were monitored closely. CLINICAL INFORMATION: Mrs. Inge Vasquez is a 39-year-old lady with a known history of coronary dissection involving the LAD that was initially treated medically, but because of total occlusion she went on to have a KELLY to LAD performed in May 2017 at the [facility]. Since then, this procedure was subsequently followed by 2 complications including a DVT and pulmonary embolism and now she takes Eliquis 5 mg b.i.d. on a regular basis. Because of recurrent episodes of chest pain and a negative stress test at 80% of her heart rate, she was advised coronary angiography. She is also going for bariatric surgery. I did not perform the procedure from the right radial because her radial artery is not palpable and she had a complication following her open-heart surgery where there was an arterial line requiring thrombectomy probably. Her left radial was palpable and I recommended that we will perform the procedure from the right femoral approach. PROCEDURE NOTE: Under local anesthesia and strict aseptic precautions, a 6-Sami introducer was placed in the right femoral artery. Using a JL4 catheter, I performed selective coronary angiography of the left system. A Jason catheter was used to check the KELLY graft as well as the [place] RCA. A pigtail catheter was used to check LV pressures and LV-gram was performed in 30-degree TORRES projection. The sheath was then taken out and Angio- Seal device used to secure hemostasis and patient was sent to the room in a stable condition. CARDIAC CATHETERIZATION FINDINGS: The left ventricular end-diastolic pressure was 14 mmHg without any gradient across aortic valve. CORONARY ANGIOGRAPHY FINDINGS: RIGHT CORONARY ARTERY: Large dominant vessel. No significant disease. Distally bifurcates into PDA and PLV, supplies a sizable amount of myocardium. LEFT MAIN CORONARY ARTERY: Short patent vessel that trifurcates into LAD, circumflex and ramus intermedius. LEFT ANTERIOR DESCENDING CORONARY ARTERY: This vessel is patent. In the midportion, there is a 60% narrowing after which there is a long area of dissection and about a 50% narrowing, but the flow runs all the way to the apex. There is about a 50% to 55% mid LAD lesion. The dissection is evident but the flow is good all the way to the apex. Diagonal and septal branches are free of significant disease. LAD therefore has intrinsic mid dissection, but flow is preserved all the way to the apex and the lesion is no more than 50% to 55%. Septal and diagonal branches are coming off before the dissection. They are free of significant disease and supplies a fair amount of myocardium. RAMUS INTERMEDIUS: Fair caliber, small distribution vessel has minor irregularities. No significant disease. LEFT POSTERIOR CIRCUMFLEX CORONARY ARTERY: Good caliber vessel, runs distally, gives off a posterolateral branch. No significant disease. Minor irregularities. LEFT INTERNAL MAMMARY ARTERY GRAFT TO LAD: This graft is widely patent in the proximal portion, but the flow is somewhat limited because of competitive flow. I gave nitroglycerin and I was able to see the flow all the way to the LAD and the LAD was opacified towards the apex, but the flow appears to be decreased because of competitive flow from the [place] circulation. LEFT VENTRICULOGRAM: This was performed in 30-degree TORRES projection revealed left ventricle is of normal size with mild hypokinesia involving the apex and estimated ejection fraction of about 50%. No mitral regurgitation was noted. FINAL IMPRESSION: This patient has slightly elevated filling pressures. No gradient across aortic valve. The right-dominant system with RCA, ramus and circumflex being free of significant disease. LAD has a long 55% lesion with intrinsic dissection but decent flow. KELLY to LAD is patent but the flow is somewhat compromised mainly because of competitive flow. No gradient across aortic valve. Ejection fraction is 50% with apical hypokinesia. RECOMMENDATIONS: I am recommending that she can proceed with the bariatric surgery. I would recommend cautious fluid administration, optimal BP control perioperatively. The patient will be treated medically and will be discharged later on today and I will see her in the office next week. She will continue beta azalea, statin agent, aspirin, and Eliquis. I will resume the Eliquis tomorrow. Discussed my thoughts in detail with the patient and her family. She will be discharged later on today. MMODL / IJN: [id number] /
[2020-05-14 13:54] VITALS: BP 131/61; PULSE 60
== END ==
LOC: CATHCVL 06:31
PROVIDERS: ATTEND Internal Medicine Interventional Cardiology
DX: I25.110 Atherosclerotic heart disease of native coronary artery with unstable angina pectoris (principal); Z72.0 Tobacco use; E66.9 Obesity, unspecified; Z68.30 Body mass index [BMI] 30.0-30.9, adult; Z86.718 Personal history of other venous thrombosis and embolism; Z82.49 Family history of ischemic heart disease and other diseases of the circulatory system; Z95.1 Presence of aortocoronary bypass graft; Z79.01 Long term (current) use of anticoagulants; Z79.82 Long term (current) use of aspirin; Z79.899 Other long term (current) drug therapy; Z88.0 Allergy status to penicillin; Z88.8 Allergy status to other drugs, medicaments and biological substances; Z88.1 Allergy status to other antibiotic agents
CPT/HCPCS: 93459; 81025; C1760; C1894 ×2; C1769 ×3; J2250; J2001; J3010; Q9967 ×2

== ENCOUNTER 2021-12-19 17:00 | Emergency (ER) | payer OTHER ==
[2021-12-19 17:26] VITALS: BP 147/84; PULSE 92; RESP 18; TEMP 98.5
[2021-12-19] MEDS ORDERED: KETOROLAC 15 MG/ML 1 ML VIAL IM STA (17:35)
--- NOTE | 2021-12-19 17:40 | ED ---
General Adult HPI - General Chief complaint: Extremity Problem,Nontraumatic Stated complaint: Blood Clot Time Seen by Provider: 12/19/21 17:30 Source: patient, family, RN notes reviewed, old records reviewed Mode of arrival: ambulatory Limitations: no limitations - History of Present Illness Initial comments: This is a 41-year-old female presents to the emergency room with left upper arm pain, redness and swelling sent by her primary care doctor to rule out DVT. Patient states that she had an elevated d-dimer was seen in the hospital last Sunday had a CT scan that was negative. She came back on Sunday had ultrasound of her lower extremity to rule out DVT which was negative. She developed swelling of the left upper arm which is where she had an IV last Sunday and her doctor's concern for blood clot. She denies any shortness of breath or chest pain. She states that she is no longer on any blood thinners. -: days(s) (2) Location: left, upper extremity Radiation: non-radiation Severity scale (1-10): 4 Quality: constant Consistency: constant Improves with: none Worsens with: other (Palpation) - Related Data Home Medications Medication Instructions Recorded Confirmed Apixaban [Eliquis] 5 mg PO BID 02/19/18 05/14/20 Metoprolol Tartrate 25 mg PO BID 06/10/18 05/14/20 Isosorbide Mononitrate ER [Imdur] 30 mg PO DAILY 02/11/20 05/14/20 Atorvastatin Calcium [Lipitor] 20 mg PO HS 03/03/20 05/14/20 Varenicline [Chantix Continuing 1 mg PO BID 05/12/20 05/14/20 Pack] raNITIdine HCL [Zantac] 150 mg PO BID PRN 05/12/20 05/14/20 Previous Rx's Medication Instructions Recorded Nitroglycerin Sl Tabs [Nitrostat] 0.4 mg SUBLINGUAL Q5M PRN #20 tab 11/24/19 Allergies Allergy/AdvReac Type Severity Reaction Status Date / Time adhesive Allergy Rash/Hives Verified 12/19/21 17:25 albuterol Allergy Anaphylaxis Verified 12/19/21 17:25 amoxicillin Allergy Anaphylaxis Verified 12/19/21 17:25 ampicillin Allergy Anaphylaxis Verified 12/19/21 17:25 azithromycin [From Zithromax] Allergy Anaphylaxis Verified 12/19/21 17:25 erythromycin base Allergy Anaphylaxis Verified 12/19/21 17:25 latex Allergy Rash/Hives Verified 12/19/21 17:25 penicillin V Allergy Anaphylaxis Verified 12/19/21 17:25 morphine AdvReac Hallucinati Verified 12/19/21 17:25 ons Review of Systems ROS Statement: Those systems with pertinent positive or pertinent negative responses have been documented in the HPI. ROS Other: All systems not noted in ROS Statement are negative. Past Medical History Past Medical History: Coronary Artery Disease (CAD), Chest Pain / Angina, CVA/TIA, Deep Vein Thrombosis (DVT), GERD/Reflux, Hyperlipidemia, Myocardial Infarction ([place]), Pulmonary Embolus ([place]) Additional Past Medical History / Comment(s): CABG, Covid 19, Last Myocardial Infarction Date:: 04/2017 History of Any Multi-Drug Resistant Organisms: MRSA Date of last positivie culture/infection: 2014 MDRO Source:: abdomen Past Surgical History: Section, Cholecystectomy, Coronary Bypass/CABG, Heart Catheterization Additional Past Surgical History / Comment(s): Right wrist surgery, carpal tunnel, MRSA S/P wound, left knee surgery, had a miscarrage, CABG Past Anesthesia/Blood Transfusion Reactions: Postoperative Nausea & Vomiting (PONV) Past Psychological History: ADD/ADHD Smoking Status: Current every day smoker Past Alcohol Use History: None Reported Past Drug Use History: None Reported - Past Family History Mother Family Medical History: Cancer, CVA/TIA, Diabetes Mellitus, Deep Vein Thrombosis (DVT), Myocardial Infarction ([place]), Pulmonary Embolus, Renal Disease Additional Family Medical History / Comment(s): Uterine cancer, artificial heart valves, and kidney disease, . Father Additional Family Medical History / Comment(s): PAD Brother(s) Family Medical History: Coronary Artery Disease (CAD), Diabetes Mellitus Additional Family Medical History / Comment(s): 2 HEART STENTS, issue with heart valve Sister(s) Additional Family Medical History / Comment(s): psych issues Daughter(s) Family Medical History: No Reported History Son(s) Family Medical History: No Reported History General Exam Limitations: no limitations General appearance: alert, in no apparent distress Head exam: Present: atraumatic Eye exam: Present: normal appearance. Absent: scleral icterus, conjunctival injection, periorbital swelling, periorbital tenderness Respiratory exam: Absent: respiratory distress, accessory muscle use Cardiovascular Exam: Present: regular rate Left Upper Arm exam: Present: full ROM, tenderness, swelling, erythema (4 cm circular area of erythema patient outlined in black marker yesterday, redness extending outside marked area) Elbow exam: Present: normal inspection, full ROM. Absent: tenderness Forearm Wrist exam: Present: normal inspection, full ROM. Absent: tenderness Hand Wrist exam: Present: normal inspection, full ROM. Absent: tenderness Neurosensory exam: Present: radial nerve intact, ulnar nerve intact, median nerve intact Vascular: Present: normal capillary refill. Absent: vascular compromise Neurological exam: Present: alert, oriented X3 Psychiatric exam: Present: normal affect, normal mood Skin exam: Present: warm, dry. Absent: cyanosis, diaphoretic, petechiae, pallor Course Vital Signs 12/19/21 17:23 Temperature 98.5 F Pulse Rate 92 Respiratory 18 Rate Blood Pressure 147/84 O2 Sat by Pulse 99 Oximetry Medical Decision Making - Medical Decision Making Ultrasound shows no evidence of DVT. There is a superficial vein thrombosis of the cephalic vein likely from her IV insertion. Radial pulses present with capillary refill less than 2 seconds. She has full range of motion. No concern for cellulitis at this time. She'll be directed to use warm compresses and follow up with her primary care as needed. She was agreeable to this plan of care. Case discussed with her [facility]. Disposition Clinical Impression: Superficial venous thrombosis of arm Disposition: HOME SELF-CARE Condition: Good Instructions (If sedation given, give patient instructions): Superficial Thrombophlebitis (ED) Additional Instructions: Patient presents with left arm redness and pain concern for DVT. Ultrasound negative for DVT. This is the same as she received an IV. Pulses are present Is patient prescribed a controlled substance at d/c from ED?: No Referrals: Marya Foreman MD [Primary Care Provider] - 1-2 days Time of Disposition: 19:07
--- NOTE | 2021-12-19 19:03 | US ---
EXAMINATION TYPE: US venous doppler duplex UE LT DATE OF EXAM: 12/19/2021 COMPARISON: NONE CLINICAL HISTORY: r/o dvt sent by PCP. Redness in upper lateral arm SIDE PERFORMED: Left Left Arm: No evidence of DVT. Echoes seen in cephalic vein from upper arm to elbow. IMPRESSION: There is no deep vein thrombosis in the left arm. There is superficial vein thrombosis in the cephali c vein.
== END 2021-12-19 19:20 | disposition home or self-care (01) ==
LOC: EC 17:00
DX: I82.612 Acute embolism and thrombosis of superficial veins of left upper extremity (principal); F17.200 Nicotine dependence, unspecified, uncomplicated; K21.9 Gastro-esophageal reflux disease without esophagitis; I25.2 Old myocardial infarction; Z86.73 Personal history of transient ischemic attack (TIA), and cerebral infarction without residual deficits; Z86.16 Personal history of COVID-19; I25.10 Atherosclerotic heart disease of native coronary artery without angina pectoris; Z95.1 Presence of aortocoronary bypass graft; Z91.09 Other allergy status, other than to drugs and biological substances; Z88.8 Allergy status to other drugs, medicaments and biological substances; Z88.0 Allergy status to penicillin; Z88.1 Allergy status to other antibiotic agents; Z91.040 Latex allergy status; Z88.5 Allergy status to narcotic agent; Z79.01 Long term (current) use of anticoagulants; Z79.899 Other long term (current) drug therapy
CPT/HCPCS: 93971; 96372; 99283; J1885

== ENCOUNTER → 2022-03-02 | Outpatient (CLI) | payer OTHER ==
--- NOTE | 2022-03-02 10:42 | XR ---
EXAMINATION TYPE: XR foot complete LT DATE OF EXAM: 03/02/2022 10:34 AM INDICATION: Patient age:Female; 41 years old; Reason for study: [id number] LT TOE PAIN; [facility]. COMPARISON: None TECHNIQUE: The left foot was examined in the AP, oblique, and lateral projections. FINDINGS: No evidence of any acute osseous pathology. No osseous erosions. Mild soft tissue swelling over the d orsal aspect of the metatarsals. Joints are preserved. No radiopaque foreign body. Small plantar calc aneal enthesophyte. IMPRESSION: 1. No evidence of acute fracture. 2. Mild soft tissue swelling over the dorsal aspect of the metatarsals.
== END | disposition home or self-care (01) ==
LOC: RADXRYALE 10:20
PROVIDERS: ATTEND Internal Medicine
DX: M79.89 Other specified soft tissue disorders (principal)

== ENCOUNTER 2022-11-15 15:26 | Emergency (ER) | payer OTHER ==
[2022-11-15 15:30] VITALS: TEMP 98.2
--- NOTE | 2022-11-15 16:42 | ED ---
General Adult HPI - General Chief complaint: Arrhythmia/Palpitations Stated complaint: heart palp,left leg pain Time Seen by Provider: 11/15/22 15:50 Source: patient, RN notes reviewed, old records reviewed Mode of arrival: ambulatory Limitations: no limitations - History of Present Illness Initial comments: This is a 42-year-old female presents emergency department stating that over the last few weeks she's been having intermittent palpitations. Patient states she has a heart monitor on currently. But she also is coming in because she is having some swelling to her left leg and she calf tenderness in the left side. Patient states she's had a clot that before when she had bypass surgery. Patient doesn't know exactly how long that leg is been swollen but it is been for at least a couple of weeks. Patient denies any fever chills per patient denies of breath or difficulty breathing. Patient denies any back pain. Patient denies any abdominal pain. patient denies nausea vomiting diarrhea patient is currently not having any palpitations - Related Data Home Medications Medication Instructions Recorded Confirmed Metoprolol Tartrate 25 mg PO BID 06/10/18 11/15/22 Isosorbide Mononitrate ER [Imdur] 30 mg PO DAILY 02/11/20 11/15/22 Furosemide [Lasix] 20 mg PO DAILY 11/15/22 11/15/22 Ibuprofen [Motrin] 600 mg PO Q6H PRN 11/15/22 11/15/22 Rosuvastatin [Crestor] 10 mg PO DAILY 11/15/22 11/15/22 Previous Rx's Medication Instructions Recorded Nitroglycerin Sl Tabs [Nitrostat] 0.4 mg SUBLINGUAL Q5M PRN #20 tab 11/24/19 Allergies Allergy/AdvReac Type Severity Reaction Status Date / Time adhesive Allergy Rash/Hives Verified 11/15/22 16:47 albuterol Allergy Anaphylaxis Verified 11/15/22 16:47 amoxicillin Allergy Anaphylaxis Verified 11/15/22 16:47 ampicillin Allergy Anaphylaxis Verified 11/15/22 16:47 azithromycin [From Zithromax] Allergy Anaphylaxis Verified 11/15/22 16:47 erythromycin base Allergy Anaphylaxis Verified 11/15/22 16:47 latex Allergy Rash/Hives Verified 11/15/22 16:47 penicillin V Allergy Anaphylaxis Verified 11/15/22 16:47 morphine AdvReac Hallucinati Verified 11/15/22 16:47 ons Review of Systems ROS Statement: Those systems with pertinent positive or pertinent negative responses have been documented in the HPI. ROS Other: All systems not noted in ROS Statement are negative. Past Medical History Past Medical History: Coronary Artery Disease (CAD), Chest Pain / Angina, CVA/TIA, Deep Vein Thrombosis (DVT), GERD/Reflux, Hyperlipidemia, Myocardial Infarction ([place]), Pulmonary Embolus ([place]) Additional Past Medical History / Comment(s): CABG, Covid 19, Last Myocardial Infarction Date:: 04/2017 History of Any Multi-Drug Resistant Organisms: MRSA Date of last positivie culture/infection: 2014 MDRO Source:: abdomen Past Surgical History: Section, Cholecystectomy, Coronary Bypass/CABG, Heart Catheterization Additional Past Surgical History / Comment(s): Right wrist surgery, carpal tunnel, MRSA S/P wound, left knee surgery, had a miscarrage, CABG Past Anesthesia/Blood Transfusion Reactions: Postoperative Nausea & Vomiting (PONV) Past Psychological History: ADD/ADHD Smoking Status: Current every day smoker Past Alcohol Use History: None Reported Past Drug Use History: None Reported - Past Family History Mother Family Medical History: Cancer, CVA/TIA, Diabetes Mellitus, Deep Vein Thrombosis (DVT), Myocardial Infarction ([place]), Pulmonary Embolus, Renal Disease Additional Family Medical History / Comment(s): Uterine cancer, artificial heart valves, and kidney disease, . Father Additional Family Medical History / Comment(s): PAD Brother(s) Family Medical History: Coronary Artery Disease (CAD), Diabetes Mellitus Additional Family Medical History / Comment(s): 2 HEART STENTS, issue with heart valve Sister(s) Additional Family Medical History / Comment(s): psych issues Daughter(s) Family Medical History: No Reported History Son(s) Family Medical History: No Reported History General Exam - General Exam Comments Initial Comments: GENERAL: Patient is well-developed and well-nourished. Patient is nontoxic and well- hydrated and is in mild distress. ENT: Neck is soft and supple. No significant lymphadenopathy is noted. Oropharynx is clear. Moist mucous membranes. Neck has full range of motion without eliciting any pain. EYES: The sclera were anicteric and conjunctiva were pink and moist. Extraocular movements were intact and pupils were equal round and reactive to light. Eyelids were unremarkable. PULMONARY: Unlabored respirations. Good breath sounds bilaterally. No audible rales rho nchi or wheezing was noted. CARDIOVASCULAR: There is a regular rate and rhythm without any murmurs gallops or rubs. ABDOMEN: Soft and nontender with normal bowel sounds. SKIN: Skin is clear with no lesions or rashes and otherwise unremarkable. NEUROLOGIC: Patient is alert and oriented x3. Cranial nerves II through XII are grossly intact. Motor and sensory are also intact. Normal speech, volume and content. Symmetrical smile. MUSCULOSKELETAL: Normal extremities with adequate strength and full range of motion. Patient has some Tenderness in the left calf LYMPHATICS: No significant lymphadenopathy is noted PSYCHIATRIC: Normal psychiatric evaluation. Limitations: no limitations Course Vital Signs 11/15/22 15:27 Temperature 98.2 F Pulse Rate 91 Respiratory 20 Rate Blood Pressure 127/77 O2 Sat by Pulse 96 Oximetry Medical Decision Making - Medical Decision Making EKG is interpreted by myself. It shows a sinus rhythm at 86 bpm ND interval 276 QRS is 68 QT interval 3:30 QTC is 382. Patient's EKG shows no ST segment elevation or depression. Was pt. sent in by a medical professional or institution (, PA, PRESS DEPARTMENT MANAGER, urgent care, hospital, or assisted...) When possible be specific @ -No Did you speak to anyone other than the patient for history (EMS, parent, family, police, friend...)? What history was obtained from this source @ -No Did you review nursing and triage notes (agree or disagree)? Why? @ -I reviewed and agree with nursing and triage notes Were old charts reviewed (outside hosp., previous admission, EMS record, old EKG, old radiological studies, urgent care reports/EKG's, assisted records)? Report findings @ -I reviewed prior lab work in prior charts of this patient Differential Diagnosis (chest pain, altered mental status, abdominal pain women, abdominal pain men, vaginal bleeding, weakness, fever, dyspnea, syncope, headache, dizziness, GI bleed, back pain, seizure, CVA, palpatations, mental health, musculoskeletal)? @ -Differential Palpitations Ventricular arrhythmias, atrial arrhythmias, myocardial infarction, anemia, thyrotoxicosis, electrolyte imbalance, hypokalemia, pulmonary embolism, pulmona ry disease, drugs, alcohol, anxiety, stress.... This is not meant to be an all-inclusive list. EKG interpreted by me (3pts min.). @ -As above X-rays interpreted by me (1pt min.). @ -Chest x-ray showed no acute abnormality CT interpreted by me (1pt min.). @ -None done U/S interpreted by me (1pt. min.). @ -Ultrasound of the left leg showed no DVT What testing was considered but not performed or refused? (CT, X-rays, U/S, labs)? Why? @ -None What meds were considered but not given or refused? Why? @ -None Did you discuss the management of the patient with other professionals (professionals i.e. Dr., PA, PRESS DEPARTMENT MANAGER, lab, RT, psych nurse, social insurance administrator, health diagnostics teacher, teacher, licensed loan officer, geriatric case manager)? Give summary @ -No Was smoking cessation discussed for >3mins.? @ -No Was critical care preformed (if so, how long)? @ -No Were there social determinants of health that impacted care today? How? (Homelessness, low income, unemployed, alcoholism, drug addiction, transportation, low edu. Level, literacy, decrease access to med. care, [facility], rehab)? @ -No Was there de-escalation of care discussed even if they declined (Discuss DNR or withdrawal of care, Hospice)? DNR status @ -No What co-morbidities impacted this encounter? (DM, HTN, Smoking, COPD, CAD, Cancer, CVA, ARF, Chemo, Hep., AIDS, mental health diagnosis, sleep apnea, morbid obesity)? @ -None Was patient admitted / discharged? Hospital course, mention meds given and route, prescriptions, significant lab abnormalities, going to OR and other pertinent info. @ -I went back into the room to speak to the patient about her results and she was sleeping I woke her and discuss results with her she agreed that she only has follow up for palpitations and she is glad that she doesn't have DVT. Undiagnosed new problem with uncertain prognosis? @ -No Drug Therapy requiring intensive monitoring for toxicity (Heparin, Nitro, Insulin, Cardizem)? @ -No Were any procedures done? @ -No Diagnosis/symptom? @ -Palpitations Acute, or Chronic, or Acute on Chronic? @ -Acute Uncomplicated (without systemic symptoms) or Complicated (systemic symptoms)? @ -Complicated Side effects of treatment? @ -No Exacerbation, Progression, or Severe Exacerbation? @ -No Poses a threat to life or bodily function? How? (Chest pain, [place], [place], pneumonia, PE, COPD, DKA, ARF, appy, cholecystitis, CVA, Diverticulitis, Homicidal, Suicidal, threat to staff... and all critical care pts) @ -No Diagnosis/symptom? @ -Swelling left leg Acute, or Chronic, or Acute on Chronic? @ -Acute Uncomplicated (without systemic symptoms) or Complicated (systemic symptoms)? @ -Uncomplicated Side effects of treatment? @ -none Exacerbation, Progression, or Severe Exacerbation] @ -no Poses a threat to life or bodily function? @ -no - Lab Data Result diagrams: 11/15/22 17:48 11/15/22 17:48 Lab Results 11/15/22 11/15/22 11/15/22 Range/Units 17:48 17:48 17:48 WBC 10.6 (3.8-10.6) k/uL RBC 4.64 (3.80-5.40) m/uL Hgb 13.6 (11.4-16.0) gm/dL Hct 41.8 (34.0-46.0) % MCV 90.1 (80.0-100.0) fL MCH 29.2 (25.0-35.0) pg MCHC 32.5 (31.0-37.0) g/dL RDW 14.0 (11.5-15.5) % Plt Count 281 (150-450) k/uL MPV 7.8 Neutrophils % 58 % Lymphocytes % 34 % Monocytes % 4 % Eosinophils % 2 % Basophils % 0 % Neutrophils # 6.1 (1.3-7.7) k/uL Lymphocytes # 3.7 (1.0-4.8) k/uL Monocytes # 0.4 (0-1.0) k/uL Eosinophils # 0.3 (0-0.7) k/uL Basophils # 0.0 (0-0.2) k/uL PT 9.7 (9.0-12.0) sec INR 0.9 (<1.2) APTT 22.6 (22.0-30.0) sec Sodium 138 (137-145) mmol/L Potassium 4.2 (3.5-5.1) mmol/L Chloride 104 (98-107) mmol/L Carbon Dioxide 26 (22-30) mmol/L Anion Gap 8 mmol/L BUN 12 (7-17) mg/dL Creatinine 0.77 (0.52-1.04) mg/dL Est GFR (CKD-EPI)AfAm >90 (>60 ml/min/1.73 sqM) Est GFR (CKD-EPI)NonAf >90 (>60 ml/min/1.73 sqM) Glucose 94 (74-99) mg/dL Calcium 9.3 (8.4-10.2) mg/dL Magnesium 2.0 (1.6-2.3) mg/dL Total Bilirubin 0.3 (0.2-1.3) mg/dL AST 24 (14-36) U/L ALT 24 (4-34) U/L Alkaline Phosphatase 80 (38-126) U/L Troponin I (0.000-0.034) ng/mL Total Protein 6.7 (6.3-8.2) g/dL Albumin 3.9 (3.5-5.0) g/dL TSH 1.550 (0.465-4.680) mIU/L 11/15/22 Range/Units 17:48 WBC (3.8-10.6) k/uL RBC (3.80-5.40) m/uL Hgb (11.4-16.0) gm/dL Hct (34.0-46.0) % MCV (80.0-100.0) fL MCH (25.0-35.0) pg MCHC (31.0-37.0) g/dL RDW (11.5-15.5) % Plt Count (150-450) k/uL MPV Neutrophils % % Lymphocytes % % Monocytes % % Eosinophils % % Basophils % % Neutrophils # (1.3-7.7) k/uL Lymphocytes # (1.0-4.8) k/uL Monocytes # (0-1.0) k/uL Eosinophils # (0-0.7) k/uL Basophils # (0-0.2) k/uL PT (9.0-12.0) sec INR (<1.2) APTT (22.0-30.0) sec Sodium (137-145) mmol/L Potassium (3.5-5.1) mmol/L Chloride (98-107) mmol/L Carbon Dioxide (22-30) mmol/L Anion Gap mmol/L BUN (7-17) mg/dL Creatinine (0.52-1.04) mg/dL Est GFR (CKD-EPI)AfAm (>60 ml/min/1.73 sqM) Est GFR (CKD-EPI)NonAf (>60 ml/min/1.73 sqM) Glucose (74-99) mg/dL Calcium (8.4-10.2) mg/dL Magnesium (1.6-2.3) mg/dL Total Bilirubin (0.2-1.3) mg/dL AST (14-36) U/L ALT (4-34) U/L Alkaline Phosphatase (38-126) U/L Troponin I <0.012 (0.000-0.034) ng/mL Total Protein (6.3-8.2) g/dL Albumin (3.5-5.0) g/dL TSH (0.465-4.680) mIU/L Disposition Clinical Impression: Palpitations, Left leg swelling Disposition: HOME SELF-CARE Condition: Good Instructions (If sedation given, give patient instructions): Heart Palpitations (ED) Is patient prescribed a controlled substance at d/c from ED?: No Referrals: Omkar Mendieta MD [Primary Care Provider] - 1-2 days Time of Disposition: 19:36
[2022-11-15 18:10] LABS: Basophils % (A) 0 %; Eosinophils # (A) 0.3 k/uL (0-0.7); Eosinophils % (A) 2 %; HCT 41.8 % (34.0-46.0); HGB 13.6 gm/dL (11.4-16.0); Lymphocytes # (A) 3.7 k/uL (1.0-4.8); Lymphocytes % (A) 34 %; MCH 29.2 pg (25.0-35.0); MCHC 32.5 g/dL (31.0-37.0); MCV 90.1 fL (80.0-100.0); Mean Platelet Volume 7.8; Monocytes # (A) 0.4 k/uL (0-1.0); Monocytes % (A) 4 %; Neutrophils # (A) 6.1 k/uL (1.3-7.7); Neutrophils % (A) 58 %; Platelet Count 281 k/uL (150-450); RBC 4.64 m/uL (3.80-5.40); WBC 10.6 k/uL (3.8-10.6)
[2022-11-15 18:27] LABS: ALT 24 U/L (4-34); AST 24 U/L (14-36); African American GFR (CKD) >90 (>60 ml/min/1.73 sqM); Albumin 3.9 g/dL (3.5-5.0); Alkaline Phosphatase 80 U/L (38-126); Anion Gap 8 mmol/L; Blood Urea Nitrogen 12 mg/dL (7-17); Calcium 9.3 mg/dL (8.4-10.2); Carbon Dioxide 26 mmol/L (22-30); Chloride 104 mmol/L (98-107); Glucose 94 mg/dL (74-99); Non-African American GFR(CKD) >90 (>60 ml/min/1.73 sqM); Potassium 4.2 mmol/L (3.5-5.1); Sodium 138 mmol/L (137-145); Total Bilirubin 0.3 mg/dL (0.2-1.3); Total Protein 6.7 g/dL (6.3-8.2)
[2022-11-15 18:45] LABS: INR 0.9 (<1.2); Partial Thromboplastin Time 22.6 sec (22.0-30.0); Prothrombin Time 9.7 sec (9.0-12.0)
--- NOTE | 2022-11-15 19:09 | US ---
EXAMINATION TYPE: US venous doppler duplex LE LT DATE OF EXAM: 11/15/2022 6:47 PM COMPARISON: 12/13/21 CLINICAL INDICATION: Female, 42 years old with history of Swollen left leg; Hx of DVT in lt leg in 20 18. Not on blood thinners. Pt states discoloration and swelling x months SIDE PERFORMED: Left TECHNIQUE: The lower extremity deep venous system is examined utilizing real time linear array sonog jose rafael with graded compression, doppler sonography and color-flow sonography. VESSELS IMAGED: Common Femoral Vein Deep Femoral Vein Greater Saphenous Vein * Femoral Vein Popliteal Vein Small Saphenous Vein * Proximal Calf Veins (* superficial vessels) Left Leg: No evidence for DVT IMPRESSION: 1. Left lower extremity ultrasound negative for deep venous thrombosis.
--- NOTE | 2022-11-15 19:15 | XR ---
EXAMINATION TYPE: XR chest 2V DATE OF EXAM: 11/15/2022 COMPARISON: 03/03/2020 INDICATION: Dysrhythmia TECHNIQUE: Frontal and lateral views of the chest are obtained. FINDINGS: The heart size is normal. The pulmonary vasculature is normal. The lungs are clear. IMPRESSION: 1. No acute pulmonary process.
[2022-11-15 20:08] VITALS: BP 127/82; PULSE 82; RESP 16
== END 2022-11-15 19:55 | disposition home or self-care (01) ==
LOC: EC 15:26
DX: R00.2 Palpitations (principal); M79.89 Other specified soft tissue disorders; I25.10 Atherosclerotic heart disease of native coronary artery without angina pectoris; I25.2 Old myocardial infarction; E78.5 Hyperlipidemia, unspecified; F17.200 Nicotine dependence, unspecified, uncomplicated; Z88.0 Allergy status to penicillin; Z88.1 Allergy status to other antibiotic agents; Z88.5 Allergy status to narcotic agent; Z91.040 Latex allergy status; Z88.8 Allergy status to other drugs, medicaments and biological substances; Z91.09 Other allergy status, other than to drugs and biological substances; Z95.1 Presence of aortocoronary bypass graft; Z86.73 Personal history of transient ischemic attack (TIA), and cerebral infarction without residual deficits; Z86.16 Personal history of COVID-19
CPT/HCPCS: 36415; 71046; 80053; 83735; 84443; 84484; 85025; 85610; 85730; 93005; 99285

== ENCOUNTER 2022-12-27 08:54 | Emergency (ER) | payer OTHER ==
[2022-12-27 09:05] VITALS: TEMP 99.2
[2022-12-27 09:17] VITALS: RESP 16
[2022-12-27] MEDS ORDERED: KETOROLAC 15 MG/ML 1 ML VIAL IM STA (09:17)
--- NOTE | 2022-12-27 09:20 | ED ---
General Adult HPI - General Chief complaint: Fall Stated complaint: R foot injury-fall Time Seen by Provider: 12/27/22 09:10 Source: patient, RN notes reviewed, old records reviewed Mode of arrival: wheelchair Limitations: no limitations - History of Present Illness Initial comments: 42-year-old female presenting with right ankle injury. Patient did fall with inversion of the right foot and swelling at the ankle. She's had difficulty ambulate secondary to pain. She has not taken any Tylenol or Motrin. She states she was evaluated at outside emergency department and had x-rays performed which were reported as negative. No other injury reported. - Related Data Home Medications Medication Instructions Recorded Confirmed Metoprolol Tartrate 25 mg PO BID 06/10/18 11/15/22 Isosorbide Mononitrate ER [Imdur] 30 mg PO DAILY 02/11/20 11/15/22 Furosemide [Lasix] 20 mg PO DAILY 11/15/22 11/15/22 Ibuprofen [Motrin] 600 mg PO Q6H PRN 11/15/22 11/15/22 Rosuvastatin [Crestor] 10 mg PO DAILY 11/15/22 11/15/22 Previous Rx's Medication Instructions Recorded Nitroglycerin Sl Tabs [Nitrostat] 0.4 mg SUBLINGUAL Q5M PRN #20 tab 11/24/19 Ibuprofen [Motrin] 600 mg PO Q8HR PRN #24 tab 12/27/22 Allergies Allergy/AdvReac Type Severity Reaction Status Date / Time adhesive Allergy Rash/Hives Verified 12/27/22 09:05 albuterol Allergy Anaphylaxis Verified 12/27/22 09:05 amoxicillin Allergy Anaphylaxis Verified 12/27/22 09:05 ampicillin Allergy Anaphylaxis Verified 12/27/22 09:05 azithromycin [From Zithromax] Allergy Anaphylaxis Verified 12/27/22 09:05 erythromycin base Allergy Anaphylaxis Verified 12/27/22 09:05 latex Allergy Rash/Hives Verified 12/27/22 09:05 penicillin V Allergy Anaphylaxis Verified 12/27/22 09:05 morphine AdvReac Hallucinati Verified 12/27/22 09:05 ons Review of Systems ROS Statement: Those systems with pertinent positive or pertinent negative responses have been documented in the HPI. ROS Other: All systems not noted in ROS Statement are negative. Past Medical History Past Medical History: Coronary Artery Disease (CAD), Chest Pain / Angina, CVA/TIA, Deep Vein Thrombosis (DVT), GERD/Reflux, Hyperlipidemia, Myocardial Infarction ([place]), Pulmonary Embolus ([place]) Additional Past Medical History / Comment(s): CABG, Covid 19, Last Myocardial Infarction Date:: 04/2017 History of Any Multi-Drug Resistant Organisms: MRSA Date of last positivie culture/infection: 2014 MDRO Source:: abdomen Past Surgical History: Section, Cholecystectomy, Coronary Bypass/CABG, Heart Catheterization Additional Past Surgical History / Comment(s): Right wrist surgery, carpal tunnel, MRSA S/P wound, left knee surgery, had a miscarrage, CABG Past Anesthesia/Blood Transfusion Reactions: Postoperative Nausea & Vomiting (PONV) Past Psychological History: ADD/ADHD Smoking Status: Current every day smoker Past Alcohol Use History: Rare Past Drug Use History: Marijuana - Past Family History Mother Family Medical History: Cancer, CVA/TIA, Diabetes Mellitus, Deep Vein Thrombosis (DVT), Myocardial Infarction ([place]), Pulmonary Embolus, Renal Disease Additional Family Medical History / Comment(s): Uterine cancer, artificial heart valves, and kidney disease, . Father Additional Family Medical History / Comment(s): PAD Brother(s) Family Medical History: Coronary Artery Disease (CAD), Diabetes Mellitus Additional Family Medical History / Comment(s): 2 HEART STENTS, issue with heart valve Sister(s) Additional Family Medical History / Comment(s): psych issues Daughter(s) Family Medical History: No Reported History Son(s) Family Medical History: No Reported History General Exam Limitations: no limitations General appearance: alert, in no apparent distress Head exam: Present: atraumatic, normocephalic Eye exam: Present: normal appearance, PERRL ENT exam: Present: normal exam Neck exam: Present: normal inspection. Absent: tenderness, meningismus Respiratory exam: Present: normal lung sounds bilaterally. Absent: respiratory distress, wheezes Cardiovascular Exam: Present: regular rate, normal rhythm GI/Abdominal exam: Present: soft. Absent: distended Extremities exam: Present: joint swelling (Right ankle, swelling on the lateral aspect with tenderness to palpation, distal pulses intact. Normal cap refill.) Neurological exam: Present: alert, oriented X3 Psychiatric exam: Present: normal affect, normal mood Skin exam: Present: warm, dry, intact Course Vital Signs 12/27/22 12/27/22 09:01 09:16 Temperature 99.2 F Pulse Rate 92 89 Respiratory 18 16 Rate Blood Pressure 126/73 126/81 O2 Sat by Pulse 98 99 Oximetry Medical Decision Making - Medical Decision Making Was pt. sent in by a medical professional or institution (SEGUN Moreno, [employer] FOUNDER AND CHAIRMAN, urgent care, hospital, or halfway...) When possible be specific @ -No Did you speak to anyone other than the patient for history (EMS, parent, family, police, friend...)? What history was obtained from this source @ -No Did you review nursing and triage notes (agree or disagree)? Why? @ -I reviewed and agree with nursing and triage notes Were old charts reviewed (outside hosp., previous admission, EMS record, old EKG, old radiological studies, urgent care reports/EKG's, halfway records)? Report findings @ -No old charts were reviewed Differential Diagnosis (chest pain, altered mental status, abdominal pain women, abdominal pain men, vaginal bleeding, weakness, fever, dyspnea, syncope, headache, dizziness, GI bleed, back pain, seizure, CVA, palpatations, mental health, musculoskeletal)? @ -Right ankle fracture or dislocation, ankle sprain EKG interpreted by me (3pts min.). @ -As above X-rays interpreted by me (1pt min.). @ X-ray negative for fracture or dislocation CT interpreted by me (1pt min.). @ -None done U/S interpreted by me (1pt. min.). @ -None done What testing was considered but not performed or refused? (CT, X-rays, U/S, labs)? Why? @ -None What meds were considered but not given or refused? Why? @ -None Did you discuss the management of the patient with other professionals (professionals i.e. SEGUN Moreno, [employer] FOUNDER AND CHAIRMAN, lab, RT, psych nurse, social insurance adviser, tour narrator, teacher, sergeant of officers, correctional case manager)? Give summary @ -No Was smoking cessation discussed for >3mins.? @ -No Was critical care preformed (if so, how long)? @ -No Were there social determinants of health that impacted care today? How? (Homelessness, low income, unemployed, alcoholism, drug addiction, transportation, low edu. Level, literacy, decrease access to med. care, residential, rehab)? @ -No Was there de-escalation of care discussed even if they declined (Discuss DNR or withdrawal of care, Hospice)? DNR status @ -No What co-morbidities impacted this encounter? (DM, HTN, Smoking, COPD, CAD, Cancer, CVA, ARF, Chemo, Hep., AIDS, mental health diagnosis, sleep apnea, morbid obesity)? @ -None Was patient admitted / discharged? Hospital course, mention meds given and route, prescriptions, significant lab abnormalities, going to OR and other pertinent info. @ 42-year-old female with right ankle inversion. Lateral soft tissue swelling. No gross deformity, distal pulses and cap refill intact. X-ray negative for fracture or dislocation. Patient placed in an Michael wrap and given crutches. She will elevate, ice, take Motrin for pain. Patient has crutches and a walker at home. Undiagnosed new problem with uncertain prognosis? @ -No Drug Therapy requiring intensive monitoring for toxicity (Heparin, Nitro, Insulin, Cardizem)? @ -No Were any procedures done? @ -No Diagnosis/symptom? @ Right ankle sprain Acute, or Chronic, or Acute on Chronic? @ -Acute Uncomplicated (without systemic symptoms) or Complicated (systemic symptoms)? @ -default Side effects of treatment? @ -No Exacerbation, Progression, or Severe Exacerbation? @ -No Poses a threat to life or bodily function? How? (Chest pain, [place], [place], pneumonia, PE, COPD, DKA, ARF, appy, cholecystitis, CVA, Diverticulitis, Homicidal, Suicida l, threat to staff... and all critical care pts) @ -No Disposition Clinical Impression: Right ankle sprain Disposition: HOME SELF-CARE Condition: Good Instructions (If sedation given, give patient instructions): Ankle Sprain (ED) Prescriptions: Ibuprofen [Motrin] 600 mg PO Q8HR PRN #24 tab PRN Reason: Pain Is patient prescribed a controlled substance at d/c from ED?: No Referrals: Omkar Mendieta MD [Primary Care Provider] - 1-2 days Time of Disposition: 09:44
--- NOTE | 2022-12-27 09:35 | XR ---
EXAMINATION TYPE: XR ankle complete RT DATE OF EXAM: 12/27/2022 COMPARISON: NONE HISTORY: Fall, pain TECHNIQUE: Frontal, lateral and oblique images of the right ankle are obtained. FINDINGS: There is no acute fracture/dislocation evident. The joint spaces appear within normal sumner its. Small plantar and posterior calcaneal enthesophytes. Soft tissue swelling of the ankle. IMPRESSION: 1. No acute fracture or dislocation seen. 2. Moderate soft tissue swelling the ankle.
[2022-12-27 11:04] VITALS: BP 140/75; PULSE 65
== END 2022-12-27 11:04 | disposition home or self-care (01) ==
LOC: EC 08:54
DX: S93.401A Sprain of unspecified ligament of right ankle, initial encounter (principal); I25.10 Atherosclerotic heart disease of native coronary artery without angina pectoris; E78.5 Hyperlipidemia, unspecified; I25.2 Old myocardial infarction; F17.200 Nicotine dependence, unspecified, uncomplicated; F12.90 Cannabis use, unspecified, uncomplicated; Z86.59 Personal history of other mental and behavioral disorders; Z79.899 Other long term (current) drug therapy; Z88.0 Allergy status to penicillin; Z88.5 Allergy status to narcotic agent; Z88.6 Allergy status to analgesic agent; Z88.8 Allergy status to other drugs, medicaments and biological substances; Z91.040 Latex allergy status; Z86.16 Personal history of COVID-19; Z90.49 Acquired absence of other specified parts of digestive tract; Z95.1 Presence of aortocoronary bypass graft; Z88.1 Allergy status to other antibiotic agents; X58.XXXA Exposure to other specified factors, initial encounter
CPT/HCPCS: 73610; 99284; 96372; J1885

== ENCOUNTER → 2023-10-16 | Outpatient (CLI) | payer OTHER ==
--- NOTE | 2023-10-16 19:41 | US ---
EXAMINATION TYPE: US venous doppler duplex LE LT DATE OF EXAM: 10/16/2023 2:05 PM COMPARISON: US 2022 CLINICAL INDICATION: Female, 42 years old with history of R60.0 EDEMA OF LEFT LOWER LEG L53.9 REDNESS R26.2; History of left leg DVT, patient on blood thinners SIDE PERFORMED: Left TECHNIQUE: The lower extremity deep venous system is examined utilizing real time linear array sonog jose rafael with graded compression, doppler sonography and color-flow sonography. VESSELS IMAGED: Common Femoral Vein Deep Femoral Vein Greater Saphenous Vein * Femoral Vein Popliteal Vein Small Saphenous Vein * Proximal Calf Veins (* superficial vessels) Left Leg: Appears negative for DVT IMPRESSION: Grayscale, color doppler, spectral doppler imaging performed of the deep veins of the lo wer extremities. There is normal flow, compressibility, vascular waveforms.
== END | disposition home or self-care (01) ==
LOC: RADUSWWP 13:29
PROVIDERS: ATTEND Family Medicine
DX: R60.0 Localized edema (principal); L53.9 Erythematous condition, unspecified; R26.2 Difficulty in walking, not elsewhere classified; Z79.01 Long term (current) use of anticoagulants; Z86.718 Personal history of other venous thrombosis and embolism